=== PATIENT | male | born 1955 | race Caucasian/White ===

== ENCOUNTER 2018-11-30 09:16 | Emergency (ER) | payer MEDICARE ==
--- NOTE | 2018-11-30 09:56 | ERPHSYRPT ---
- History of Present Illness Time Seen by Provider: 11/30/18 09:40 Source: patient Exam Limitations: no limitations Patient Subjective Stated Complaint: states 2 days ago had an episode of low blood pressure. states did not pass out.. has had 2 other similar episiode over the past 4 months.,. has n ot gotten it evaluated.. came today because his doctor told him to come in.. no c/o at this time Triage Nursing Assessment: alert and oriented with no c/o at this time.. states 2 days ago had an episode of low blood pressure. did not pass out. neuro intact.. denies any pain of any kind. denies cough fever. Physician History: 63-year-old white male arrives with complaint that he has been passing out at home he states that he has been having episodes where he feels like he is drunk staggering around the last time this happened was 2 days ago he states he did not pass completely out he states he had similar episode of prior to this he states that he contacted his family doctor and was told to come to the emergency room. He is not sure complaining of any shortness of breath he has no chest pain he states he is not having problems at this time. patient states he was noted at the time to have a blood pressure of 90/45. Past medical history includes peripheral neuropathy, diabetes type 2, hypothyroidism, high blood pressure, arthritis, degenerative disc disease, enlarged prostate, GERD, glaucoma, carpal tunnel, chronic back pain Past surgical history includes spinal fusion . Social history positive tobacco denies alcohol or illicit drug use . Timing/Duration: day(s) (2 days ago and has been recurrent) Severity: moderate Associated Symptoms: syncope (near syncopal episode), other (hypotension), No nausea, No vomiting, No abdominal pain, No shortness of breath, No heartburn, No diaphoresis, No cough, No chills, No chest pain, No fever, No headaches, No loss of appetite, No malaise, No rash, No seizure, No weakness Allergies/Adverse Reactions: Tetracyclines Allergy (Verified 11/30/18 10:00) Home Medications: Amitriptyline HCl 75 mg PO DAILY 05/15/17 [History] Canagliflozin [Invokana] 300 mg PO DAILY 05/15/17 [History] Duloxetine HCl [Cymbalta] 60 mg PO DAILY 05/15/17 [History] Gabapentin [Neurontin] 300 mg PO TID 05/15/17 [History] Hydrocodone/APAP 10/325 mg [Barnum 10/325 MG Tablet] 1 tab PO Q8H PRN PRN 05/15/17 [History] Levothyroxine Sodium 100 Mcg [Synthroid 100 Mcg] 100 mcg PO DAILY 05/15/17 [History] Metformin HCl 1,000 mg PO BID 05/15/17 [History] Metoprolol Tartrate 50 mg [Lopressor 50 MG] 50 mg PO DAILY 05/15/17 [ History] - Review of Systems Constitutional: No Fever, No Chills Eyes: No Symptoms Ears, Nose, & Throat: No Symptoms Respiratory: No Cough, No Dyspnea Cardiac: Other (hypotension), No Chest Pain, No Edema, No Syncope Abdominal/Gastrointestinal: No Abdominal Pain, No Nausea, No Vomiting, No Diarrhea Genitourinary Symptoms: No Dysuria Musculoskeletal: No Back Pain, No Neck Pain Skin: No Rash Neurological: Dizziness, Gait Changes, Other (dizzy with staggering gait2 days ago), No Focal Weakness, No Headache, No Irritability, No Lethargy, No Paralysis , No Parasthesia, No Seizure, No Sensory Changes, No Speech Changes, No Tics, No Tremors Psychological: No Symptoms Endocrine: No Symptoms All Other Systems: Reviewed and Negative - Past Medical History Pertinent Past Medical History: Yes Neurological History: No Pertinent History, Peripheral Neuropathy Cardiac History: Hypertension Respiratory History: No Pertinent History Endocrine Medical History: Diabetes Type II, Hypothyroidism Musculoskeletal History: Arthritis, Degenerative Disk Disease - Past Surgical History Past Surgical History: Yes - Social History Smoking Status: Current every day smoker Exposure to second hand smoke: No Drug Use: none Patient Lives Alone: No - Nursing Vital Signs Nursing Vital Signs: Initial Vital Signs Temperature 97.0 F 11/30/18 09:21 Pulse Rate 79 11/30/18 09:21 Respiratory Rate 18 11/30/18 09:21 Blood Pressure 141/94 11/30/18 09:21 O2 Sat by Pulse Oximetry 95 11/30/18 09:21 Pain Scale Pain Intensity 4 - Physical Exam General Appearance: no apparent distress, alert Eye Exam: PERRL/EOMI, eyes nml inspection Ears, Nose, Throat Exam: normal ENT inspection, TMs normal, pharynx normal, moist mucous membranes Neck Exam: normal inspection, non-tender, supple, full range of motion Respiratory Exam: normal breath sounds, lungs clear, No respiratory distress Cardiovascular Exam: regular rate/rhythm, normal heart sounds, normal peripheral pulses, capillary refill <2 sec Gastrointestinal/Abdomen Exam: soft, normal bowel sounds, No tenderness, No mass Back Exam: normal inspection, normal range of motion, No CVA tenderness, No vertebral tenderness Extremity Exam: normal inspection, normal range of motion, pelvis stable Neurologic Exam: alert, oriented x 3, cooperative, track layer head II-XII nml as tested, normal mood/affect, nml cerebellar function, nml station & gait, sensation nml, No motor deficits Skin Exam: normal color, warm, dry, No rash SpO2 Interpretation: normal (95%) SpO2: 95 - Course Nursing assessment & vital signs reviewed: Yes EKG Interpreted by Me: RATE (78 bpm), Sinus Rhythm, Other (EKG: Sinus rhythm, 78 bpm< AXISSI/QIII pattern, no acute ST or T wave changes) - Radiology Exams Chest X-ray Interpretation: Discussed w/ radiologist (chest x-ray: Normal heart and lungs, bony thorax intact. No new/acute findings.,) - CT Exams Head CT Interpretation: Discussed w/radiologist (head CT: Impression: Normal head CT without contrast.) Ordered Tests: Active Orders 24 hr Category Date Time Status EKG-ER Only STAT Care 11/30/18 09:44 Active IV Insertion STAT Care 11/30/18 09:44 Active CHEST 1 VIEW (PORTABLE) Stat Exams 11/30/18 09:45 Completed HEAD WITHOUT CONTRAST [CT] Stat Exams 11/30/18 09:46 Completed AMYLASE Stat Lab 11/30/18 10:04 Completed CBC W DIFF Stat Lab 11/30/18 10:04 Completed CMP Stat Lab 11/30/18 10:04 Completed LIPASE Stat Lab 11/30/18 10:04 Completed TROPONIN Q3H Lab 11/30/18 10:04 Completed TROPONIN Q3H Lab 11/30/18 12:45 Ordered TROPONIN Q3H Lab 11/30/18 15:45 Ordered TROPONIN Q3H Lab 11/30/18 18:45 Ordered TROPONIN Q3H Lab 11/30/18 21:45 Ordered UA W/RFX UR CULTURE Stat Lab 11/30/18 10:10 Completed Lab/Rad Data: Laboratory Result Diagrams 11/30/18 10:04 11/30/18 10:04 Laboratory Results 11/30/18 11/30/18 11/30/18 Range/Units 10:10 10:04 10:04 WBC (4.0-10.5) K/mm3 RBC (4.1-5.6) M/mm3 Hgb (12.5-18.0) gm/dl Hct (42-50) % MCV (78-100) fl MCH (26-32) pg MCHC (32-36) g/dl RDW (11.5-14.0) % Plt Count (150-450) K/mm3 MPV (6-9.5) fl Gran % (36.0-66.0) % Eos # (Auto) (0-0.5) Absolute Lymphs (auto) (1.0-4.6) Absolute Monos (auto) (0.0-1.3) Lymphocytes % (24.0-44.0) % Monocytes % (0.0-12.0) % Eosinophils % (0.00-5.0) % Basophils % (0.0-0.4) % Absolute Granulocytes (1.4-6.9) Basophils # (0-0.4) Sodium 137 (137-145) mmol/L Potassium 4.3 (3.5-5.1) mmol/L Chloride 105 (98-107) mmol/L Carbon Dioxide 23 (22-30) mmol/L Anion Gap 13.3 (5-15) MEQ/L BUN 10 (9-20) mg/dL Creatinine 0.69 (0.66-1.25) mg/dL Estimated GFR > 60.0 ML/MIN Glucose 239 H (74-106) mg/dL Calcium 8.4 (8.4-10.2) mg/dL Total Bilirubin 0.90 (0.2-1.3) mg/dL AST 43 (17-59) U/L ALT 44 (0-50) U/L Alkaline Phosphatase 80 (38-126) U/L Troponin I < 0.012 (0.000-0.034) ng/mL Serum Total Protein 7.0 (6.3-8.2) g/dL Albumin 3.6 (3.5-5.0) g/dL Amylase 48 (30-110) U/L Lipase 75 (23-300) U/L Urine Color YELLOW (YELLOW) Urine Appearance CLEAR (CLEAR) Urine pH 5.0 (5-6) Ur Specific Clinton 1.024 (1.005-1.025) Urine Protein NEGATIVE (Negative) Urine Ketones NEGATIVE (NEGATIVE) Urine Blood NEGATIVE (0-5) Gerardo/ul Urine Nitrite NEGATIVE (NEGATIVE) Urine Bilirubin NEGATIVE (NEGATIVE) Urine Urobilinogen 4 (0-1) mg/dL Ur Leukocyte Esterase NEGATIVE (NEGATIVE) Urine WBC (Auto) NONE (0-5) /HPF Urine RBC (Auto) NONE (0-2) /HPF U Epithel Cells (Auto) NONE (FEW) /HPF Urine Mucus (Auto) SLIGHT (NEGATIVE) /HPF Urine Culture Reflexed NO (NO) Urine Glucose >=500 (NEGATIVE) mg/dL 11/30/18 Range/Units 10:04 WBC 5.9 (4.0-10.5) K/mm3 RBC 4.14 (4.1-5.6) M/mm3 Hgb 13.4 (12.5-18.0) gm/dl Hct 40.9 L (42-50) % MCV 98.8 (78-100) fl MCH 32.4 H (26-32) pg MCHC 32.8 (32-36) g/dl RDW 14.1 H (11.5-14.0) % Plt Count 140 L (150-450) K/mm3 MPV 10.5 H (6-9.5) fl Gran % 61.4 (36.0-66.0) % Eos # (Auto) 0.07 (0-0.5) Absolute Lymphs (auto) 1.71 (1.0-4.6) Absolute Monos (auto) 0.47 (0.0-1.3) Lymphocytes % 29.2 (24.0-44.0) % Monocytes % 8.0 (0.0-12.0) % Eosinophils % 1.2 (0.00-5.0) % Basophils % 0.2 (0.0-0.4) % Absolute Granulocytes 3.60 (1.4-6.9) Basophils # 0.01 (0-0.4) Sodium (137-145) mmol/L Potassium (3.5-5.1) mmol/L Chloride (98-107) mmol/L Carbon Dioxide (22-30) mmol/L Anion Gap (5-15) MEQ/L BUN (9-20) mg/dL Creatinine (0.66-1.25) mg/dL Estimated GFR ML/MIN Glucose (74-106) mg/dL Calcium (8.4-10.2) mg/dL Total Bilirubin (0.2-1.3) mg/dL AST (17-59) U/L ALT (0-50) U/L Alkaline Phosphatase (38-126) U/L Troponin I (0.000-0.034) ng/mL Serum Total Protein (6.3-8.2) g/dL Albumin (3.5-5.0) g/dL Amylase (30-110) U/L Lipase (23-300) U/L Urine Color (YELLOW) Urine Appearance (CLEAR) Urine pH (5-6) Ur Specific Clinton (1.005-1.025) Urine Protein (Negative) Urine Ketones (NEGATIVE) Urine Blood (0-5) Gerardo/ul Urine Nitrite (NEGATIVE) Urine Bilirubin (NEGATIVE) Urine Urobilinogen (0-1) mg/dL Ur Leukocyte Esterase (NEGATIVE) Urine WBC (Auto) (0-5) /HPF Urine RBC (Auto) (0-2) /HPF U Epithel Cells (Auto) (FEW) /HPF Urine Mucus (Auto) (NEGATIVE) /HPF Urine Culture Reflexed (NO) Urine Glucose (NEGATIVE) mg/dL - Progress Progress: improved Progress Note: 11/30/18 11:53 This is a 63-year-old white male with history of diabetes, diabetic neuropathy, sleep apnea, high blood pressure Patient apparently has been passing out at home apparently he states he states that he had a staggering gait 2 days ago he states his blood pressure was low at that time. Patient apparently called his family physician's office and was told to present to the emergency room. 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 Patient's head CT no acute disease process noted, EKG sinus rhythm 78 bpm axis S1/every 3 pattern essentially normal EKG chest x-ray no acute disease processes noted patient's labs white cell 5.9 hemoglobin 13.4 hematocrit 40.9 platelets are 140 patient's urine specific gravity 1.025 pH 5.0 there is greater than 500 glucose patient's troponin is normal patient's chemistries especially normal with the exception of a glucose of 239 . Patient's vitals have been stable patient is stable on the monitor. I've discussed the patient's case with Dr. Chaves patient is return home call Dr. Chaves and schedule an appointment. Impression transient gait disturbance Passing out at home Hypotension at home - Departure Time of Disposition: 11:56 Departure Disposition: Home Clinical Impression: transient gait disturbance, hypotension at home, Dizziness Syncope Qualifiers: Syncope type: unspecified Qualified Code(s): R55 - Syncope and collapse Condition: Fair Critical Care Time: No Referrals: MATHEUS YOU [ACTIVE STAFF] - Additional Instructions: Return home. Plenty of fluids. No heights no hazardous activity no driving take showers instead of baths. Follow-up with Dr. Chaves's office call for an appointment. Return for acute distress or for severe symptoms.
[2018-11-30 10:08] LABS: BASOPHIL % 0.2 % (0.0-0.4); Basophil (Absolute #) 0.01 (0-0.4); Eosinophil % 1.2 % (0.00-5.0); Eosinophil (Absolute #) 0.07 (0-0.5); Granulocytes % 61.4 % (36.0-66.0); Hematocrit 40.9 % (42-50); Hemoglobin 13.4 gm/dl (12.5-18.0); Lymphocyte (Absolute #) 1.71 (1.0-4.6); Lymphocytes % 29.2 % (24.0-44.0); Mean Cell Volume 98.8 fl (78-100); Mean Corpuscular Hemoglobin 32.4 pg (26-32); Mean Corpuscular Hgb Concent. 32.8 g/dl (32-36); Mean Platelet Volume 10.5 fl (6-9.5); Monocyte (Absolute #) 0.47 (0.0-1.3); Platelet Count 140 K/mm3 (150-450); Red Blood Count 4.14 M/mm3 (4.1-5.6); Red Cell Distribution Width 14.1 % (11.5-14.0); White Blood Count 5.9 K/mm3 (4.0-10.5)
--- NOTE | 2018-11-30 10:09 | XRAY ---
Indication: Syncope. Comparison: February 25, 2017. Portable chest again demonstrates normal heart and lungs. Bony thorax intact. No new/acute findings.
[2018-11-30 10:14] VITALS: BP 123/80
[2018-11-30 10:18] LABS: ALBUMIN 3.6 g/dL (3.5-5.0); ALKALINE PHOSPHATASE 80 U/L (38-126); AMYLASE 48 U/L (30-110); ANION GAP 13.3 MEQ/L (5-15); BLOOD UREA NITROGEN 10 mg/dL (9-20); CHLORIDE 105 mmol/L (98-107); Calcium 8.4 mg/dL (8.4-10.2); Carbon Dioxide 23 mmol/L (22-30); Creatinine 1 0.69 mg/dL (0.66-1.25); Glucose 239 mg/dL (74-106); LIPASE 75 U/L (23-300); Potassium 4.3 mmol/L (3.5-5.1); SGOT/AST 43 U/L (17-59); SGPT/ALT 44 U/L (0-50); SODIUM 137 mmol/L (137-145)
[2018-11-30 10:24] LABS: Appearance CLEAR (CLEAR); Bilirubin NEGATIVE (NEGATIVE); Blood NEGATIVE Ery/ul (0-5); Glucose >=500 mg/dL (NEGATIVE); Ketones NEGATIVE (NEGATIVE); Leukocyte Esterase NEGATIVE (NEGATIVE); Mucus SLIGHT /HPF (NEGATIVE); Nitrite NEGATIVE (NEGATIVE); Protein,Urine Dip NEGATIVE (Negative); Specific Gravity 1.024 (1.005-1.025); Urobilinogen 4 mg/dL (0-1)
--- NOTE | 2018-11-30 10:55 | XRAY ---
Indication: Syncopal episode 3 days ago. Multiple contiguous axial images obtained through the head without contrast. Comparison: None Normal appearing brain parenchyma, ventricles, and bony calvarium. Visualized paranasal sinuses and mastoid air cells are clear. Impression: Normal CT head without contrast exam. CT DI 69.11
[2018-11-30 12:12] VITALS: PULSE 76; O2SAT 98
== END 2018-11-30 12:09 | disposition home or self-care (01) ==
LOC: ED 09:16
DX: R26.89 Other abnormalities of gait and mobility (principal); I95.9 Hypotension, unspecified; R42 Dizziness and giddiness; E11.9 Type 2 diabetes mellitus without complications; E03.9 Hypothyroidism, unspecified; I10 Essential (primary) hypertension; R55 Syncope and collapse; Z79.899 Other long term (current) drug therapy
CPT/HCPCS: 36000; 36415; 70450; 71045; 80053; 81001; 82150; 83690; 84484; 85025; 93005; 99284

== ENCOUNTER 2019-11-17 07:59 | Emergency (ER) | payer MEDICARE ==
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
[2019-11-17 08:42] LABS: Absolute Neutrophil Ct (ANC) 3.41 (1.4-6.9); BASOPHIL % 0.2 % (0.0-0.4); Basophil (Absolute #) 0.01 (0-0.4); Eosinophil % 1.5 % (0.00-5.0); Eosinophil (Absolute #) 0.08 (0-0.5); Hematocrit 42.4 % (42-50); Hemoglobin 13.8 gm/dl (12.5-18.0); Lymphocyte (Absolute #) 1.13 (1.0-4.6); Lymphocytes % 21.3 % (24.0-44.0); Mean Cell Volume 95.5 fl (78-100); Mean Corpuscular Hemoglobin 31.1 pg (26-32); Mean Corpuscular Hgb Concent. 32.5 g/dl (32-36); Mean Platelet Volume 10.2 fl (7.5-11.0); Monocyte (Absolute #) 0.67 (0.0-1.3); Monocytes % 12.6 % (0.0-12.0); Neutrophil % 64.4 % (36.0-66.0); Platelet Count 128 K/mm3 (150-450); Red Blood Count 4.44 M/mm3 (4.1-5.6); Red Cell Distribution Width 14.1 % (11.5-14.0); White Blood Count 5.3 K/mm3 (4.0-10.5)
[2019-11-17 08:52] LABS: ALBUMIN 4.1 g/dL (3.5-5.0); ALKALINE PHOSPHATASE 84 U/L (38-126); ANION GAP 16.3 MEQ/L (5-15); BLOOD UREA NITROGEN 7 mg/dL (9-20); CHLORIDE 104 mmol/L (98-107); Calcium 9.6 mg/dL (8.4-10.2); Carbon Dioxide 22 mmol/L (22-30); Creatinine 1 0.68 mg/dL (0.66-1.25); Glucose 130 mg/dL (74-106); LIPASE 44 U/L (23-300); Potassium 4.3 mmol/L (3.5-5.1); SGOT/AST 31 U/L (17-59); SGPT/ALT 22 U/L (0-50); SODIUM 138 mmol/L (137-145); Total Protein 7.8 g/dL (6.3-8.2)
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
[2019-11-17 10:07] VITALS: BP 168/101; PULSE 78
[2019-11-17 10:09] VITALS: O2SAT 96
== END 2019-11-17 10:14 | disposition home or self-care (01) ==
LOC: ED 07:59
DX: N28.1 Cyst of kidney, acquired (principal); S16.1XXA Strain of muscle, fascia and tendon at neck level, initial encounter; S39.012A Strain of muscle, fascia and tendon of lower back, initial encounter; V89.2XXA Person injured in unspecified motor-vehicle accident, traffic, initial encounter; K74.69 Other cirrhosis of liver; I10 Essential (primary) hypertension; G62.9 Polyneuropathy, unspecified; M25.572 Pain in left ankle and joints of left foot; E11.9 Type 2 diabetes mellitus without complications; Z79.4 Long term (current) use of insulin; E03.9 Hypothyroidism, unspecified; M19.90 Unspecified osteoarthritis, unspecified site; Z72.0 Tobacco use; Z79.899 Other long term (current) drug therapy
CPT/HCPCS: 36000; 36415; 70450; 71260; 72125; 73610; 74177; 80053; 83690; 85025; 99285

== ENCOUNTER 2020-05-29 09:49 | Emergency (ER) | payer MEDICARE ==
--- NOTE | 2020-05-29 09:57 | ERPHSYRPT ---
- History of Present Illness Time Seen by Provider: 05/29/20 09:57 Source: patient Exam Limitations: no limitations Physician History: This is a 64-year-old white male who is diabetic and has hypothyroidism and is a patient of Dr. Becerra and presents with 2 to 3-day history of intermittent headaches and humming sound in his head. He took his blood pressure on his home device and his systolic blood pressure was over 170 and his diastolic blood pressure was over 100. Patient took his metoprolol 50 mg orally this morning and he takes it usually twice a day. Patient is also on levothyroxine. Patient denies shortness of breath and denies chest pain. Patient denies abdominal pain Timing/Duration: day(s) (2-3) Severity: mild Character of Deficits: none Deficits: no difficulties Baseline/Normal Cognition: alert oriented x 3 Current Cognition: alert oriented x 3 Baseline Gait: walks w/o assistance Associated Symptoms: ringing in ears, headache, No vision changes, No chest pain Allergies/Adverse Reactions: Tetracyclines Allergy (Verified 11/17/19 08:20) Home Medications: Amitriptyline HCl 12.5 mg PO DAILY 05/15/17 [History] Duloxetine HCl [Cymbalta] 60 mg PO DAILY 05/15/17 [History] Gabapentin [Neurontin] 800 mg PO TID 05/15/17 [History] Hydrocodone/APAP 10/325 mg [[place] 10/325 MG Tablet] 1 tab PO Q8H PRN PRN 05/15/17 [History] Levothyroxine Sodium 100 Mcg [Synthroid 100 Mcg] 300 mcg PO DAILY 05/15/17 [History] Metformin HCl 1,000 mg PO BID 05/15/17 [History] Metoprolol Tartrate 50 mg [Lopressor 50 MG] 50 mg PO BID 05/15/17 [History] Empagliflozin [Jardiance] 25 mg PO DAILY 11/17/19 [History] Tamsulosin HCl 0.4 mg [Flomax 0.4 MG] 0.4 mg PO DAILY 11/17/19 [History] Tizanidine HCl 4 mg PO Q8H PRN 11/17/19 [History] Travel Risk - International Travel Have you traveled outside of the country in past 3 weeks: No - Coronavirus Screening Are you exhibiting any of the following symptoms?: No Close contact with a COVID-19 positive Pt in past 14-21 Days: No - Review of Systems Constitutional: No Symptoms Eyes: No Symptoms Ears, Nose, & Throat: No Symptoms Respiratory: No Symptoms Cardiac: No Symptoms Abdominal/Gastrointestinal: No Symptoms Genitourinary Symptoms: No Symptoms Musculoskeletal: No Symptoms Skin: No Symptoms Neurological: Headache, Other (Humming in his head) Psychological: No Symptoms Endocrine: No Symptoms Hematologic/Lymphatic: No Symptoms Immunological/Allergic: No Symptoms All Other Systems: Reviewed and Negative - Past Medical History Pertinent Past Medical History: Yes Neurological History: Peripheral Neuropathy, Other Cardiac History: Hypertension Respiratory History: No Pertinent History Endocrine Medical History: Diabetes Type II, Other Musculoskeletal History: Osteoarthritis GI Medical History: No Pertinent History History: No Pertinent History Psycho-Social History: No Pertinent History Male Reproductive Disorders: No Pertinent History Other Medical History: Recent MUSTAFA, some tingling into B medial brachium, fatty li denise. - Past Surgical History Past Surgical History: Yes Neuro Surgical History: No Pertinent History Cardiac: No Pertinent History Respiratory: No Pertinent History Gastrointestinal: No Pertinent History Genitourinary: No Pertinent History Musculoskeletal: Other Male Surgical History: No Pertinent History Other Surgical History: back surgery- spinal fusion, 2 rods - Social History Smoking Status: Current every day smoker How long have you smoked: 40 years Exposure to second hand smoke: Yes Drug Use: none Patient Lives Alone: No - Nursing Vital Signs Nursing Vital Signs: Initial Vital Signs Temperature 98.2 F 05/29/20 10:01 Pulse Rate 72 05/29/20 10:01 Respiratory Rate 20 05/29/20 10:01 Blood Pressure 174/100 05/29/20 10:01 O2 Sat by Pulse Oximetry 98 05/29/20 10:01 Pain Scale Pain Intensity 0 - [place] Coma Scale Best Eye Response ([place]): (4) open spontaneously Best Verbal Response ([place]): (5) oriented Best Motor Response (Samir): (6) obeys commands [place] Total: 15 - Physical Exam General Appearance: no apparent distress, alert, anxiety Eye Exam: bilateral eye: normal inspection, PERRL, EOMI Ears, Nose, Throat Exam: normal ENT inspection, TMs normal, moist mucous membranes Neck Exam: normal inspection, non-tender, supple, full range of motion Respiratory: normal breath sounds, lungs clear, airway intact, No chest tenderness, No respiratory distress Cardiovascular: regular rate/rhythm, normal heart sounds, normal peripheral pulses Gastrointestinal: soft, normal bowel sounds, No tenderness Rectal Exam: not done Back Exam: normal inspection, normal range of motion, No CVA tenderness, No vertebral tenderness Extremity Exam: normal inspection, normal range of motion, pelvis stable Mental Status: alert, oriented x 3, cooperative mercerizer Exam: normal hearing, normal speech, PERRL, tongue midline Coordination/Gait: normal finger to nose, normal gait, normal cerebellar function Motor/Sensory: no motor deficit, no sensory deficit, no pronator drift Skin Exam: normal color, warm, dry SpO2 Interpretation: normal O2 Delivery: Room Air - Course Nursing assessment & vital signs reviewed: Yes EKG Interpreted by Me: RATE ([id number]), Sinus Rhythm, NORMAL AXIS, NORMAL INTERVALS, NORMAL QRS, Other (Comparison EKG November 17, 2019 there is no changes when compared to that EKG. On today's EKG there are no acute ischemic changes.) Ordered Tests: Active Orders 24 hr Category Date Time Status EKG-ER Only STAT Care 05/29/20 10:31 Active IV Insertion STAT Care 05/29/20 10:31 Active HEAD WITHOUT CONTRAST [CT] Stat Exams 05/29/20 10:31 Completed CBC W DIFF Stat Lab 05/29/20 10:30 Completed CMP Stat Lab 05/29/20 10:30 Completed MAGNESIUM Stat Lab 05/29/20 10:30 Completed TROPONIN Q3H Lab 05/29/20 10:30 Completed TROPONIN Q3H Lab 05/29/20 13:45 Ordered TROPONIN Q3H Lab 05/29/20 16:45 Ordered TROPONIN Q3H Lab 05/29/20 19:45 Ordered TROPONIN Q3H Lab 05/29/20 22:45 Ordered Lab/Rad Data: Laboratory Result Diagrams 05/29/20 10:30 05/29/20 10:30 Laboratory Results 05/29/20 05/29/20 05/29/20 Range/Units 10:30 10:30 10:30 WBC 6.7 (4.0-10.5) K/mm3 RBC 4.43 (4.1-5.6) M/mm3 Hgb 15.4 (12.5-18.0) gm/dl Hct 45.1 (42-50) % MCV 101.8 H (78-100) fl MCH 34.8 H (26-32) pg MCHC 34.1 (32-36) g/dl RDW 15.9 H (11.5-14.0) % Plt Count 148 L (150-450) K/mm3 MPV 10.6 (7.5-11.0) fl Gran % 62.7 (36.0-66.0) % Eos # (Auto) 0.07 (0-0.5) Absolute Lymphs (auto) 1.90 (1.0-4.6) Absolute Monos (auto) 0.54 (0.0-1.3) Lymphocytes % 28.2 (24.0-44.0) % Monocytes % 8.0 (0.0-12.0) % Eosinophils % 1.0 (0.00-5.0) % Basophils % 0.1 (0.0-0.4) % Absolute Granulocytes 4.21 (1.4-6.9) Basophils # 0.01 (0-0.4) Sodium 139 (137-145) mmol/L Potassium 4.2 (3.5-5.1) mmol/L Chloride 104 (98-107) mmol/L Carbon Dioxide 24 (22-30) mmol/L Anion Gap 15.4 H (5-15) MEQ/L BUN 11 (9-20) mg/dL Creatinine 0.76 (0.66-1.25) mg/dL Estimated GFR > 60.0 ML/MIN Glucose 100 (74-106) mg/dL Calcium 9.6 (8.4-10.2) mg/dL Magnesium 1.6 (1.6-2.3) mg/dL Total Bilirubin 1.70 H (0.2-1.3) mg/dL AST 29 (17-59) U/L ALT 21 (0-50) U/L Alkaline Phosphatase 80 (38-126) U/L Troponin I < 0.012 (0.000-0.034) ng/mL Serum Total Protein 8.3 H (6.3-8.2) g/dL Albumin 4.5 (3.5-5.0) g/dL - Progress Progress: improved, re-examined Progress Note: 05/29/20 11:41 CAT scan of the head reveals no acute intracranial abnormality Counseled pt/family regarding: lab results, diagnosis, need for follow-up, rad results - Departure Departure Disposition: Home Clinical Impression: Hypertension, Headache, Dizziness Condition: Stable Critical Care Time: No Referrals: CAROLYN BECERRA MD [Primary Care Provider] - Additional Instructions: Take your medication as prescribed. Keep a daily log of your blood pressure. Take once in the morning, midday and evening. Follow-up with your primary care physician for further management of your symptoms.
[2020-05-29 10:47] LABS: Absolute Neutrophil Ct (ANC) 4.21 (1.4-6.9); BASOPHIL % 0.1 % (0.0-0.4); Basophil (Absolute #) 0.01 (0-0.4); Eosinophil (Absolute #) 0.07 (0-0.5); Hematocrit 45.1 % (42-50); Hemoglobin 15.4 gm/dl (12.5-18.0); Lymphocytes % 28.2 % (24.0-44.0); Mean Cell Volume 101.8 fl (78-100); Mean Corpuscular Hemoglobin 34.8 pg (26-32); Mean Corpuscular Hgb Concent. 34.1 g/dl (32-36); Mean Platelet Volume 10.6 fl (7.5-11.0); Monocyte (Absolute #) 0.54 (0.0-1.3); Neutrophil % 62.7 % (36.0-66.0); Platelet Count 148 K/mm3 (150-450); Red Blood Count 4.43 M/mm3 (4.1-5.6); Red Cell Distribution Width 15.9 % (11.5-14.0); White Blood Count 6.7 K/mm3 (4.0-10.5)
[2020-05-29 11:08] LABS: ALBUMIN 4.5 g/dL (3.5-5.0); ALKALINE PHOSPHATASE 80 U/L (38-126); ANION GAP 15.4 MEQ/L (5-15); BLOOD UREA NITROGEN 11 mg/dL (9-20); CHLORIDE 104 mmol/L (98-107); Calcium 9.6 mg/dL (8.4-10.2); Carbon Dioxide 24 mmol/L (22-30); Creatinine 1 0.76 mg/dL (0.66-1.25); Glucose 100 mg/dL (74-106); MAGNESIUM 1.6 mg/dL (1.6-2.3); Potassium 4.2 mmol/L (3.5-5.1); SGOT/AST 29 U/L (17-59); SGPT/ALT 21 U/L (0-50); SODIUM 139 mmol/L (137-145); Total Protein 8.3 g/dL (6.3-8.2)
--- NOTE | 2020-05-29 11:33 | XRAY ---
Indication: Headache and dizziness. Hypertension. Multiple contiguous axial images obtained through the head without contrast. Comparison: November 17, 2019. Again normal appearing brain parenchyma, ventricles, and bony calvarium. Visualized paranasal sinuses and mastoid air cells are clear. Impression: Continued normal CT head without contrast exam.
[2020-05-29 12:16] VITALS: BP 153/87; PULSE 69; O2SAT 98
== END 2020-05-29 12:21 | disposition home or self-care (01) ==
LOC: ED 09:49
DX: I10 Essential (primary) hypertension (principal); R51 Headache; R42 Dizziness and giddiness
CPT/HCPCS: 36000; 36415; 70450; 80053; 83735; 84484; 85025; 93005; 99284

== ENCOUNTER 2020-09-15 11:37 | Emergency (ER) | payer MEDICARE ==
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
[2020-09-15 12:22] LABS: Absolute Neutrophil Ct (ANC) 5.08 (1.4-6.9); BASOPHIL % 0.1 % (0.0-0.4); Basophil (Absolute #) 0.01 (0-0.4); Eosinophil % 1.2 % (0.00-5.0); Hematocrit 46.8 % (42-50); Hemoglobin 15.8 gm/dl (12.5-18.0); Lymphocyte (Absolute #) 2.47 (1.0-4.6); Lymphocytes % 29.9 % (24.0-44.0); Mean Corpuscular Hemoglobin 33.8 pg (26-32); Mean Corpuscular Hgb Concent. 33.8 g/dl (32-36); Mean Platelet Volume 10.7 fl (7.5-11.0); Monocytes % 7.3 % (0.0-12.0); Neutrophil % 61.5 % (36.0-66.0); Platelet Count 142 K/mm3 (150-450); Red Blood Count 4.68 M/mm3 (4.1-5.6); Red Cell Distribution Width 13.7 % (11.5-14.0); White Blood Count 8.3 K/mm3 (4.0-10.5)
[2020-09-15 12:25] LABS: Appearance CLEAR (CLEAR); Bilirubin NEGATIVE (NEGATIVE); Blood NEGATIVE Ery/ul (0-5); Glucose >=500 mg/dL (NEGATIVE); Ketones NEGATIVE (NEGATIVE); Leukocyte Esterase NEGATIVE (NEGATIVE); Nitrite NEGATIVE (NEGATIVE); Protein,Urine Dip NEGATIVE (Negative); RBC 0-2 /HPF (0-2); Specific Gravity 1.018 (1.005-1.025); Urobilinogen 4 mg/dL (0-1)
[2020-09-15 12:30] LABS: Bacteria NONE SEEN /HPF (NEGATIVE)
--- NOTE | 2020-09-15 12:30 | XRAY ---
Indication: Uncontrolled hypertension. Comparison: November 22, 2018. Portable apical lordotic chest again demonstrates normal heart and lungs. Bony thorax intact again with mild degenerative changes. No new/acute findings.
[2020-09-15 13:06] LABS: ALBUMIN 4.2 g/dL (3.5-5.0); ALKALINE PHOSPHATASE 76 U/L (38-126); ANION GAP 13.9 MEQ/L (5-15); BLOOD UREA NITROGEN 17 mg/dL (9-20); CHLORIDE 105 mmol/L (98-107); Calcium 9.8 mg/dL (8.4-10.2); Carbon Dioxide 22 mmol/L (22-30); Creatinine 1 0.76 mg/dL (0.66-1.25); EST GLOMERULAR FILTRATION RATE > 60.0 ML/MIN; Glucose 71 mg/dL (74-106); Potassium 4.4 mmol/L (3.5-5.1); SGOT/AST 40 U/L (17-59); SGPT/ALT 26 U/L (0-50); SODIUM 136 mmol/L (137-145); Total Protein 8.1 g/dL (6.3-8.2)
[2020-09-15 13:28] LABS: TROPONIN < 0.012 ng/mL (0.000-0.034)
[2020-09-15 14:06] VITALS: BP 158/99; PULSE 66
[2020-09-15 15:19] VITALS: O2SAT 94
== END 2020-09-15 14:11 | disposition home or self-care (01) ==
LOC: ED 11:37
DX: I10 Essential (primary) hypertension (principal); E78.5 Hyperlipidemia, unspecified; E11.9 Type 2 diabetes mellitus without complications; E03.9 Hypothyroidism, unspecified; Z79.899 Other long term (current) drug therapy; F17.210 Nicotine dependence, cigarettes, uncomplicated
CPT/HCPCS: 36000; 36415; 71045; 80053; 81001; 83880; 84484; 85025; 93005; 99284

== ENCOUNTER 2021-05-31 09:52 | Observation (INO) | payer MEDICARE ==
--- NOTE | 2021-05-31 10:16 | XRAY ---
Indication: Right sided numbness. Multiple contiguous axial images obtained through the head without contrast. Comparison: May 29, 2020. Normal appearing brain parenchyma, ventricles, and bony calvarium for patient's age. Visualized paranasal sinuses and mastoid air cells are clear. Impression: Continued normal CT head without contrast exam.
--- NOTE | 2021-05-31 10:29 | ERPHSYRPT ---
- History of Present Illness Time Seen by Provider: 05/31/21 10:17 Patient Subjective Stated Complaint: Pt states that at 0630 he began noticing that his right was feeling numb and felt like his right side of his face was d rooping Triage Nursing Assessment: Pt brought to the ER by his , hypertensive, denies pain, no facial droop seen, skin n/w/d, pulses normal Physician History: 65 years old male with history of hypertension, hyperlipidemia, diabetes mellitus, hypothyroidism, questionable history of paroxysmal atrial fibrillation not on anticoagulation presented in the ER with chief complaint of right-sided numbness noticed when he woke up around 630 this morning. Last well-known was 2 AM today. Patient also report having feeling of dullness or heaviness in the right face and every right lower extremity with mild difficulty ambulation as right foot has not coordinated with the left one very well. Denies any difficulty speech, visual symptoms. Denies any chest pain palpitations or shortness of breath. Severity: mild Character of Deficits: Right Facial Baseline/Normal Cognition: alert oriented x 3 Current Cognition: alert oriented x 3 Baseline Gait: walks w/o assistance Associated Symptoms: numbness/tingling in legs/feet, trouble walking Allergies/Adverse Reactions: Tetracyclines Allergy (Verified 05/31/21 10:05) Home Medications: Amitriptyline HCl 12.5 mg PO DAILY 05/15/17 [History] Duloxetine HCl [Cymbalta] 60 mg PO DAILY 05/15/17 [History] Gabapentin [Neurontin] 800 mg PO TID 05/15/17 [History] Hydrocodone/APAP 10/325 mg [[place] 10/325 MG Tablet] 1 tab PO Q8H PRN PRN 05/15/17 [History] Levothyroxine Sodium 100 Mcg [Synthroid 100 Mcg] 150 mcg PO DAILY 05/15/17 [History] Metformin HCl 1,000 mg PO BID 05/15/17 [History] Metoprolol Tartrate 50 mg [Lopressor 50 MG] 50 mg PO BID 05/15/17 [History] Empagliflozin [Jardiance] 25 mg PO DAILY 11/17/19 [History] Tamsulosin HCl 0.4 mg [Flomax 0.4 MG] 0.4 mg PO DAILY 11/17/19 [History] Tizanidine HCl 4 mg PO Q8H PRN 11/17/19 [History] Lisinopril 5 mg [Zestril 5 MG] 5 mg PO DAILY 05/31/21 [History] Hx Tetanus, Diphtheria Vaccination/Date Given: No Hx Influenza Vaccination/Date Given: Yes Hx Pneumococcal Vaccination/Date Given: No Travel Risk - International Travel Have you traveled outside of the country in past 3 weeks: No - Coronavirus Screening Are you exhibiting any of the following symptoms?: No - Vaccine Status Have you recieved a Covid-19 vaccination: Yes 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: [employer] - Vaccination Dates Date of 2cond Vaccination (if applicable): 01/2021 - Review of Systems Constitutional: No Symptoms Eyes: No Symptoms Ears, Nose, & Throat: No Symptoms Respiratory: No Symptoms Cardiac: No Symptoms Abdominal/Gastrointestinal: No Symptoms Genitourinary Symptoms: No Symptoms Musculoskeletal: No Symptoms Skin: No Symptoms Neurological: Sensory Changes Psychological: No Symptoms Endocrine: No Symptoms Hematologic/Lymphatic: No Symptoms Immunological/Allergic: No Symptoms - Past Medical History Pertinent Past Medical History: Yes Neurological History: Peripheral Neuropathy, Other Cardiac History: Hypertension Respiratory History: No Pertinent History Endocrine Medical History: Diabetes Type II, Other Musculoskeletal History: Osteoarthritis GI Medical History: No Pertinent History History: No Pertinent History Psycho-Social History: No Pertinent History Male Reproductive Disorders: No Pertinent History Other Medical History: Recent MUSTAFA, some tingling into B medial brachium, fatty liver. - Past Surgical History Past Surgical History: Yes Neuro Surgical History: No Pertinent History Cardiac: No Pertinent History Respiratory: No Pertinent History Gastrointestinal: No Pertinent History Genitourinary: No Pertinent History Musculoskeletal: Other Male Surgical History: No Pertinent History Other Surgical History: back surgery- spinal fusion, 2 rods - Social History Smoking Status: Current every day smoker How long have you smoked: 40 years Exposure to second hand smoke: Yes Drug Use: none Patient Lives Alone: No - Nursing Vital Signs Nursing Vital Signs: Initial Vital Signs Temperature 97.3 F 05/31/21 09:58 Pulse Rate 84 05/31/21 09:58 Blood Pressure 162/104 05/31/21 09:58 O2 Sat by Pulse Oximetry 97 05/31/21 09:58 Pain Scale Pain Intensity 0 - Samir Coma Scale Best Eye Response (Nenzel): (4) open spontaneously Best Verbal Response (Samir): (5) oriented Best Motor Response (Samir): (6) obeys commands Nenzel Total: 15 - Physical Exam General Appearance: no apparent distress Eye Exam: bilateral eye: normal inspection, PERRL, EOMI Ears, Nose, Throat Exam: normal ENT inspection, TMs normal, pharynx normal, moist mucous membranes Neck Exam: normal inspection, non-tender, supple, full range of motion, No meningismus Respiratory: normal breath sounds, lungs clear Cardiovascular: regular rate/rhythm, normal heart sounds Gastrointestinal: soft, normal bowel sounds, No tenderness Back Exam: normal inspection, normal range of motion, No CVA tenderness Extremity Exam: normal inspection, normal range of motion, pelvis stable, No pedal edema Mental Status: alert, oriented x 3, 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: normal speech, PERRL, No normal hearing (Chronic hard of hearing), No facial asymmetry, No facial droop Coordination/Gait: normal finger to nose, normal cerebellar function Motor/Sensory: no motor deficit, no pronator drift, negative Babinski's sign, sensory deficit (Decreased sensations of fine touch right face right upper and lower extremity), No no sensory deficit DTR: bicep (R): 2+, bicep (L): 2+, knee (R): 2+, knee (L): 2+ Skin Exam: normal color SpO2 Interpretation: normal SpO2: 97 O2 Delivery: Room Air Ordered Tests: Active Orders 24 hr Category Date Time 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 05/31/21 10:28 Active EKG-ER Only STAT Care 05/31/21 10:27 Active IV Insertion STAT Care 05/31/21 10:27 Active NPO (ED) STAT Care 05/31/21 10:27 Active POCT Glucose Check STAT Care 05/31/21 10:27 Active CHEST 1 VIEW (PORTABLE) Stat Exams 05/31/21 10:28 Completed HEAD WITHOUT CONTRAST [CT] Stat Exams 05/31/21 09:55 Completed CBC W DIFF Stat Lab 05/31/21 10:30 Completed CMP Stat Lab 05/31/21 10:30 Completed NT PRO BNP Stat Lab 05/31/21 10:30 Completed POCT GLUCOSE Stat Lab 05/31/21 10:07 Completed PROTIME WITH INR Stat Lab 05/31/21 10:30 Completed PTT Stat Lab 05/31/21 10:30 Completed TROPONIN Q3H Lab 05/31/21 10:30 Completed TROPONIN Q3H Lab 05/31/21 13:30 Ordered TROPONIN Q3H Lab 05/31/21 16:30 Ordered TROPONIN Q3H Lab 05/31/21 19:30 Ordered TROPONIN Q3H Lab 05/31/21 22:30 Ordered UA W/RFX UR CULTURE Stat Lab 05/31/21 10:55 Ordered Transfer Order Routine Transfer 05/31/21 Ordered Medication Summary Generic Name Dose Route Start Last Admin Trade Name Gabbie PRN Reason Stop Dose Admin Aspirin 324 mg 06/01/21 10:00 Ecotrin 81 Mg PO 07/01/21 09:59 DAILY SARA Lab/Rad Data: Laboratory Result Diagrams 05/31/21 10:30 05/31/21 10:30 Laboratory Results 05/31/21 05/31/21 05/31/21 Range/Units 10:30 10:30 10:30 WBC (4.0-10.5) K/mm3 RBC (4.1-5.6) M/mm3 Hgb (12.5-18.0) gm/dl Hct (42-50) % MCV (78-100) fl MCH (26-32) pg MCHC (32-36) g/dl RDW (11.5-14.0) % Plt Count (150-450) K/mm3 MPV (7.5-11.0) fl Gran % (36.0-66.0) % Eos # (Auto) (0-0.5) Absolute Lymphs (auto) (1.0-4.6) Absolute Monos (auto) (0.0-1.3) Lymphocytes % (24.0-44.0) % Monocytes % (0.0-12.0) % Eosinophils % (0.00-5.0) % Basophils % (0.0-0.4) % Absolute Granulocytes (1.4-6.9) Basophils # (0-0.4) PT 12.0 (9.4-12.5) SECONDS INR 1.02 (0.8-3.0) APTT 29.6 (25.1-36.5) SECONDS Sodium 139 (137-145) mmol/L Potassium 4.4 (3.5-5.1) mmol/L Chloride 102 (98-107) mmol/L Carbon Dioxide 23 (22-30) mmol/L Anion Gap 18.0 H (5-15) MEQ/L BUN 12 (9-20) mg/dL Creatinine 0.98 (0.66-1.25) mg/dL Estimated GFR > 60.0 ML/MIN Glucose 113 H (74-106) mg/dL POC Glucometer (74 to 106) mg/dL Calcium 9.5 (8.4-10.2) mg/dL Total Bilirubin 0.40 (0.2-1.3) mg/dL AST 31 (17-59) U/L ALT 24 (0-50) U/L Alkaline Phosphatase 91 (38-126) U/L Troponin I < 0.012 (0.000-0.034) ng/mL NT-Pro-B Natriuret Pep 39.7 (0-900) pg/mL Serum Total Protein 7.2 (6.3-8.2) g/dL Albumin 3.9 (3.5-5.0) g/dL 05/31/21 05/31/21 Range/Units 10:30 10:07 WBC 7.0 (4.0-10.5) K/mm3 RBC 3.97 L (4.1-5.6) M/mm3 Hgb 12.6 (12.5-18.0) gm/dl Hct 39.5 L (42-50) % MCV 99.5 (78-100) fl MCH 31.7 (26-32) pg MCHC 31.9 L (32-36) g/dl RDW 13.3 (11.5-14.0) % Plt Count 177 (150-450) K/mm3 MPV 10.3 (7.5-11.0) fl Gran % 64.3 (36.0-66.0) % Eos # (Auto) 0.12 (0-0.5) Absolute Lymphs (auto) 1.85 (1.0-4.6) Absolute Monos (auto) 0.51 (0.0-1.3) Lymphocytes % 26.6 (24.0-44.0) % Monocytes % 7.3 (0.0-12.0) % Eosinophils % 1.7 (0.00-5.0) % Basophils % 0.1 (0.0-0.4) % Absolute Granulocytes 4.46 (1.4-6.9) Basophils # 0.01 (0-0.4) PT (9.4-12.5) SECONDS INR (0.8-3.0) APTT (25.1-36.5) SECONDS Sodium (137-145) mmol/L Potassium (3.5-5.1) mmol/L Chloride (98-107) mmol/L Carbon Dioxide (22-30) mmol/L Anion Gap (5-15) MEQ/L BUN (9-20) mg/dL Creatinine (0.66-1.25) mg/dL Estimated GFR ML/MIN Glucose (74-106) mg/dL POC Glucometer 119 H (74 to 106) mg/dL Calcium (8.4-10.2) mg/dL Total Bilirubin (0.2-1.3) mg/dL AST (17-59) U/L ALT (0-50) U/L Alkaline Phosphatase (38-126) U/L Troponin I (0.000-0.034) ng/mL NT-Pro-B Natriuret Pep (0-900) pg/mL Serum Total Protein (6.3-8.2) g/dL Albumin (3.5-5.0) g/dL - Progress Progress: unchanged Progress Note: 05/31/21 11:29 65 years old is evaluated for right-sided numbness without any focal weakness. Patient is made stroke activate, prompt CT head is obtained which is negative for any acute findings. SOC neurology consult is obtained, patient is out of the window and has only sensory symptoms, did not recommend any intervention but aspirin and further work-up for stroke like MRI/MRAs and observation with telemetry. Patient has stable baseline work-up. EKG normal sinus without any A. fib. Discussed with Dr. Becerra and patient is being admitted for observation. Discussed with : Ignacio Will see patient in: hospital (observation) Counseled pt/family regarding: lab results, diagnosis, rad results - Departure Departure Disposition: Observation Clinical Impression: Stroke-like symptoms Condition: Stable Critical Care Time: Yes Critical Care Time(excluding separately billable procedures): Critical 30-74 mins Referrals: CAROLYN BECERRA MD [Primary Care Provider] -
[2021-05-31 10:34] LABS: Absolute Neutrophil Ct (ANC) 4.46 (1.4-6.9); BASOPHIL % 0.1 % (0.0-0.4); Basophil (Absolute #) 0.01 (0-0.4); Eosinophil % 1.7 % (0.00-5.0); Eosinophil (Absolute #) 0.12 (0-0.5); Hematocrit 39.5 % (42-50); Hemoglobin 12.6 gm/dl (12.5-18.0); Lymphocyte (Absolute #) 1.85 (1.0-4.6); Lymphocytes % 26.6 % (24.0-44.0); Mean Cell Volume 99.5 fl (78-100); Mean Corpuscular Hemoglobin 31.7 pg (26-32); Mean Corpuscular Hgb Concent. 31.9 g/dl (32-36); Mean Platelet Volume 10.3 fl (7.5-11.0); Monocyte (Absolute #) 0.51 (0.0-1.3); Monocytes % 7.3 % (0.0-12.0); Neutrophil % 64.3 % (36.0-66.0); Platelet Count 177 K/mm3 (150-450); Red Blood Count 3.97 M/mm3 (4.1-5.6); Red Cell Distribution Width 13.3 % (11.5-14.0)
[2021-05-31 10:36] LABS: INR 1.02 (0.8-3.0)
[2021-05-31 10:39] LABS: PTT 29.6 SECONDS (25.1-36.5)
[2021-05-31 10:49] LABS: ALBUMIN 3.9 g/dL (3.5-5.0); ALKALINE PHOSPHATASE 91 U/L (38-126); BLOOD UREA NITROGEN 12 mg/dL (9-20); CHLORIDE 102 mmol/L (98-107); Calcium 9.5 mg/dL (8.4-10.2); Carbon Dioxide 23 mmol/L (22-30); Creatinine 1 0.98 mg/dL (0.66-1.25); EST GLOMERULAR FILTRATION RATE > 60.0 ML/MIN; Glucose 113 mg/dL (74-106); NT PRO BNP 39.7 pg/mL (0-900); Potassium 4.4 mmol/L (3.5-5.1); SGOT/AST 31 U/L (17-59); SGPT/ALT 24 U/L (0-50); SODIUM 139 mmol/L (137-145); Total Protein 7.2 g/dL (6.3-8.2)
--- NOTE | 2021-05-31 11:14 | XRAY ---
Indication: Stroke symptoms. Comparison: September 15, 2020. Portable chest slightly rotated with new left base hazy interstitial alveolar opacity without consolidation/large effusion. Remaining heart and right lung unremarkable. Bony thorax intact again with mild degenerative changes.
[2021-05-31 11:32] LABS: Appearance CLEAR (CLEAR); Bilirubin NEGATIVE (NEGATIVE); Blood NEGATIVE Ery/ul (0-5); Glucose >=500 mg/dL (NEGATIVE); Ketones NEGATIVE (NEGATIVE); Leukocyte Esterase NEGATIVE (NEGATIVE); Mucus SLIGHT /HPF (NEGATIVE); Nitrite NEGATIVE (NEGATIVE); Protein,Urine Dip NEGATIVE (Negative); Specific Gravity 1.021 (1.005-1.025); Urobilinogen 2 mg/dL (0-1)
[2021-05-31] MEDS ORDERED: HUMALOG SQ PRN (16:54)
[2021-05-31] MEDS ORDERED: DUONEB 0.5-3 MG/3 ml Neb IH PRN (16:54)
[2021-05-31] MEDS: PROTONIX 40 MG IV IV SCH (18:32)
[2021-06-01 05:18] LABS: Absolute Neutrophil Ct (ANC) 3.89 (1.4-6.9); BASOPHIL % 0.2 % (0.0-0.4); Basophil (Absolute #) 0.01 (0-0.4); Eosinophil % 1.5 % (0.00-5.0); Hematocrit 39.6 % (42-50); Hemoglobin 12.7 gm/dl (12.5-18.0); Lymphocyte (Absolute #) 2.02 (1.0-4.6); Lymphocytes % 30.5 % (24.0-44.0); Mean Cell Volume 99.2 fl (78-100); Mean Corpuscular Hemoglobin 31.8 pg (26-32); Mean Corpuscular Hgb Concent. 32.1 g/dl (32-36); Mean Platelet Volume 10.4 fl (7.5-11.0); Monocyte (Absolute #) 0.61 (0.0-1.3); Monocytes % 9.2 % (0.0-12.0); Neutrophil % 58.6 % (36.0-66.0); Platelet Count 169 K/mm3 (150-450); Red Blood Count 3.99 M/mm3 (4.1-5.6); Red Cell Distribution Width 13.2 % (11.5-14.0); White Blood Count 6.6 K/mm3 (4.0-10.5)
[2021-06-01 05:39] LABS: ALBUMIN 3.8 g/dL (3.5-5.0); ALKALINE PHOSPHATASE 98 U/L (38-126); ANION GAP 16.1 MEQ/L (5-15); BLOOD UREA NITROGEN 15 mg/dL (9-20); CHLORIDE 101 mmol/L (98-107); Calcium 9.4 mg/dL (8.4-10.2); Carbon Dioxide 24 mmol/L (22-30); Creatinine 1 0.92 mg/dL (0.66-1.25); EST GLOMERULAR FILTRATION RATE > 60.0 ML/MIN; Glucose 98 mg/dL (74-106); Potassium 4.6 mmol/L (3.5-5.1); SGOT/AST 27 U/L (17-59); SGPT/ALT 23 U/L (0-50); SODIUM 137 mmol/L (137-145); Total Protein 7.3 g/dL (6.3-8.2)
[2021-06-01] MEDS: PROTONIX 40 MG IV IV SCH (08:39)
[2021-06-01] MEDS ORDERED: HUMALOG SQ PRN (08:57)
--- NOTE | 2021-06-01 09:03 | PCM.HP ---
History of Present Illness - Chief Complaint Chief Complaint: RIGHT SIDE NUMBNESS History of Present Illness: is a 65 year old male who presented to the ER with acute onset of numbness and difficulty using his right hand, he awoke with symptoms and was far beyond the window for lytic therapy, he denies blurry vision, no difficulty with speech of weakness in the legs. His symptoms remain with poor coordination with the right hand and numbness, he does not have gross weakness. - Review of Systems Constitutional: No Fever, No Chills Respiratory: No Cough, No Short Of Breath Cardiac: No Chest Pain, No Edema, No Syncope Abdominal/Gastrointestinal: No Abdominal Pain, No Nausea, No Vomiting, No Diarrhea Genitourinary Symptoms: No Dysuria Skin: No Rash Neurological: Focal Weakness, Sensory Changes, No Speech Changes All Other Systems: Reviewed and Negative Medications & Allergies Home Medications: Home Medication List Gabapentin [Neurontin] 800 mg PO QID 05/15/17 [History Confirmed 05/31/21] Hydrocodone/APAP 10/325 mg [[place] 10/325 MG Tablet] 1 tab PO Q6HPRN PRN 05/15/17 [History Confirmed 05/31/21] Levothyroxine Sodium 100 Mcg [Synthroid 100 Mcg] 100 mcg PO DAILY 05/15/17 [History Confirmed 05/31/21] Metformin HCl 1,000 mg PO BID 05/15/17 [History Confirmed 05/31/21] Metoprolol Tartrate 50 mg [Lopressor 50 MG] 75 mg PO BID 05/15/17 [History Confirmed 05/31/21] Empagliflozin [Jardiance] 25 mg PO DAILY 11/17/19 [History Confirmed 05/31/21] Tamsulosin HCl 0.4 mg [Flomax 0.4 MG] 0.4 mg PO DAILY 11/17/19 [History Confirmed 05/31/21] Tizanidine HCl 4 mg PO DAILY PRN 11/17/19 [History Confirmed 05/31/21] Clonidine HCl 0.1 mg PO DAILY 05/31/21 [History Confirmed 05/31/21] glipiZIDE [Glipizide] 10 mg PO DAILY 05/31/21 [History Confirmed 05/31/21] Allergies/Adverse Reactions: Allergies Allergy/AdvReac Type Severity Reaction Status Date / Time Tetracyclines Allergy Verified 05/31/21 10:05 - Past Medical History Past Medical History: Yes Neurological History: Peripheral Neuropathy, Other Cardiac History: Hypertension Respiratory History: No Pertinent History Endocrine Medical History: Diabetes Type II, Other Musculoskelatal History: Osteoarthritis GI Medical History: No Pertinent History History: No Pertinent History Pyscho-Social History: No Pertinent History Male Reproductive Disorders: No Pertinent History Comment: Recent MUSTAFA, some tingling into B medial brachium, fatty liver. - Past Surgical History Past Surgical History: Yes Neuro Surgical History: No Pertinent History Cardiac History: No Pertinent History Respiratory Surgery: No Pertinent History GI Surgical History: No Pertinent History Genitourinary Surgical Hx: No Pertinent History Musculskeletal Surgical Hx: Other Male Surgical History: No Pertinent History Other Surgical History: back surgery- spinal fusion, 2 rods - Social History Smoking Status: Current every day smoker How long have you smoked: 45 Exposure to second hand smoke: Yes Alcohol: None Drug Use: none - Physical Exam Vital Signs: Vital Signs - 24 hr Temp Pulse Resp BP Pulse Ox 06/01/21 07:40 98.1 F 75 20 170/83 95 06/01/21 03:37 98.1 F 72 18 164/83 96 06/01/21 00:00 98.3 F 78 18 147/75 94 L 05/31/21 19:58 98.2 F 79 19 158/81 95 05/31/21 17:15 98.3 F 76 18 190/93 96 05/31/21 17:13 98.3 F 76 18 190/93 96 05/31/21 16:57 98.3 F 76 18 190/93 96 05/31/21 16:47 16 179/106 97 05/31/21 16:00 78 18 181/98 98 05/31/21 15:00 77 18 169/102 98 05/31/21 14:00 80 18 169/102 98 05/31/21 11:30 97 05/31/21 10:57 75 162/104 96 05/31/21 09:58 97.3 F 84 162/104 97 General Appearance: no apparent distress, obese Neurologic Exam: alert, oriented x 3, cooperative, supervising nurse II-XII nml as tested, normal mood/affect, nml cerebellar function, sensory deficit, No motor deficits, No disoriented, No confusion, No agitation, No motor weakness, No facial droop, No aphasia, No dysarthria Respiratory Exam: normal breath sounds, lungs clear, No respiratory distress Cardiovascular Exam: regular rate/rhythm, normal heart sounds, normal peripheral pulses Gastrointestinal/Abdomen Exam: soft, normal bowel sounds, No tenderness, No mass Extremity Exam: normal inspection, normal range of motion, pelvis stable Skin Exam: normal color, warm, dry, No rash Results - Labs Lab/Micro Results: Lab Results-Last 24 Hours 05/31/21 05/31/21 05/31/21 Range/Units 10:07 10:30 10:30 WBC 7.0 (4.0-10.5) K/mm3 RBC 3.97 L (4.1-5.6) M/mm3 Hgb 12.6 (12.5-18.0) gm/dl Hct 39.5 L (42-50) % MCV 99.5 (78-100) fl MCH 31.7 (26-32) pg MCHC 31.9 L (32-36) g/dl RDW 13.3 (11.5-14.0) % Plt Count 177 (150-450) K/mm3 MPV 10.3 (7.5-11.0) fl Gran % 64.3 (36.0-66.0) % Eos # (Auto) 0.12 (0-0.5) Absolute Lymphs (auto) 1.85 (1.0-4.6) Absolute Monos (auto) 0.51 (0.0-1.3) Lymphocytes % 26.6 (24.0-44.0) % Monocytes % 7.3 (0.0-12.0) % Eosinophils % 1.7 (0.00-5.0) % Basophils % 0.1 (0.0-0.4) % Absolute Granulocytes 4.46 (1.4-6.9) Basophils # 0.01 (0-0.4) PT (9.4-12.5) SECONDS INR (0.8-3.0) APTT (25.1-36.5) SECONDS Sodium 139 (137-145) mmol/L Potassium 4.4 (3.5-5.1) mmol/L Chloride 102 (98-107) mmol/L Carbon Dioxide 23 (22-30) mmol/L Anion Gap 18.0 H (5-15) MEQ/L BUN 12 (9-20) mg/dL Creatinine 0.98 (0.66-1.25) mg/dL Estimated GFR > 60.0 ML/MIN Glucose 113 H (74-106) mg/dL POC Glucometer 119 H (74 to 106) mg/dL Hemoglobin A1c (4.5-6.0) % Calcium 9.5 (8.4-10.2) mg/dL Total Bilirubin 0.40 (0.2-1.3) mg/dL AST 31 (17-59) U/L ALT 24 (0-50) U/L Alkaline Phosphatase 91 (38-126) U/L Troponin I (0.000-0.034) ng/mL NT-Pro-B Natriuret Pep 39.7 (0-900) pg/mL Serum Total Protein 7.2 (6.3-8.2) g/dL Albumin 3.9 (3.5-5.0) g/dL Urine Color (YELLOW) Urine Appearance (CLEAR) Urine pH (5-6) Ur Specific [place] (1.005-1.025) Urine Protein (Negative) Urine Ketones (NEGATIVE) Urine Blood (0-5) Gerardo/ul Urine Nitrite (NEGATIVE) Urine Bilirubin (NEGATIVE) Urine Urobilinogen (0-1) mg/dL Ur Leukocyte Esterase (NEGATIVE) Urine WBC (Auto) (0-5) /HPF Urine RBC (Auto) (0-2) /HPF U Epithel Cells (Auto) (FEW) /HPF Urine Bacteria (Auto) (NEGATIVE) /HPF Urine Mucus (Auto) (NEGATIVE) /HPF Urine Culture Reflexed (NO) Urine Glucose (NEGATIVE) mg/dL SARS-CoV-2 (PCR) (NEGATIVE) 05/31/21 05/31/21 05/31/21 Range/Units 10:30 10:30 10:55 WBC (4.0-10.5) K/mm3 RBC (4.1-5.6) M/mm3 Hgb (12.5-18.0) gm/dl Hct (42-50) % MCV (78-100) fl MCH (26-32) pg MCHC (32-36) g/dl RDW (11.5-14.0) % Plt Count (150-450) K/mm3 MPV (7.5-11.0) fl Gran % (36.0-66.0) % Eos # (Auto) (0-0.5) Absolute Lymphs (auto) (1.0-4.6) Absolute Monos (auto) (0.0-1.3) Lymphocytes % (24.0-44.0) % Monocytes % (0.0-12.0) % Eosinophils % (0.00-5.0) % Basophils % (0.0-0.4) % Absolute Granulocytes (1.4-6.9) Basophils # (0-0.4) PT 12.0 (9.4-12.5) SECONDS INR 1.02 (0.8-3.0) APTT 29.6 (25.1-36.5) SECONDS Sodium (137-145) mmol/L Potassium (3.5-5.1) mmol/L Chloride (98-107) mmol/L Carbon Dioxide (22-30) mmol/L Anion Gap (5-15) MEQ/L BUN (9-20) mg/dL Creatinine (0.66-1.25) mg/dL Estimated GFR ML/MIN Glucose (74-106) mg/dL POC Glucometer (74 to 106) mg/dL Hemoglobin A1c (4.5-6.0) % Calcium (8.4-10.2) mg/dL Total Bilirubin (0.2-1.3) mg/dL AST (17-59) U/L ALT (0-50) U/L Alkaline Phosphatase (38-126) U/L Troponin I < 0.012 (0.000-0.034) ng/mL NT-Pro-B Natriuret Pep (0-900) pg/mL Serum Total Protein (6.3-8.2) g/dL Albumin (3.5-5.0) g/dL Urine Color YELLOW (YELLOW) Urine Appearance CLEAR (CLEAR) Urine pH 5.0 (5-6) Ur Specific [place] 1.021 (1.005-1.025) Urine Protein NEGATIVE (Negative) Urine Ketones NEGATIVE (NEGATIVE) Urine Blood NEGATIVE (0-5) Gerardo/ul Urine Nitrite NEGATIVE (NEGATIVE) Urine Bilirubin NEGATIVE (NEGATIVE) Urine Urobilinogen 2 (0-1) mg/dL Ur Leukocyte Esterase NEGATIVE (NEGATIVE) Urine WBC (Auto) NONE (0-5) /HPF Urine RBC (Auto) NONE (0-2) /HPF U Epithel Cells (Auto) NONE (FEW) /HPF Urine Bacteria (Auto) NONE (NEGATIVE) /HPF Urine Mucus (Auto) SLIGHT (NEGATIVE) /HPF Urine Culture Reflexed NO (NO) Urine Glucose >=500 (NEGATIVE) mg/dL SARS-CoV-2 (PCR) (NEGATIVE) 05/31/21 05/31/21 05/31/21 Range/Units 13:25 14:49 16:00 WBC (4.0-10.5) K/mm3 RBC (4.1-5.6) M/mm3 Hgb (12.5-18.0) gm/dl Hct (42-50) % MCV (78-100) fl MCH (26-32) pg MCHC (32-36) g/dl RDW (11.5-14.0) % Plt Count (150-450) K/mm3 MPV (7.5-11.0) fl Gran % (36.0-66.0) % Eos # (Auto) (0-0.5) Absolute Lymphs (auto) (1.0-4.6) Absolute Monos (auto) (0.0-1.3) Lymphocytes % (24.0-44.0) % Monocytes % (0.0-12.0) % Eosinophils % (0.00-5.0) % Basophils % (0.0-0.4) % Absolute Granulocytes (1.4-6.9) Basophils # (0-0.4) PT (9.4-12.5) SECONDS INR (0.8-3.0) APTT (25.1-36.5) SECONDS Sodium (137-145) mmol/L Potassium (3.5-5.1) mmol/L Chloride (98-107) mmol/L Carbon Dioxide (22-30) mmol/L Anion Gap (5-15) MEQ/L BUN (9-20) mg/dL Creatinine (0.66-1.25) mg/dL Estimated GFR ML/MIN Glucose (74-106) mg/dL POC Glucometer (74 to 106) mg/dL Hemoglobin A1c (4.5-6.0) % Calcium (8.4-10.2) mg/dL Total Bilirubin (0.2-1.3) mg/dL AST (17-59) U/L ALT (0-50) U/L Alkaline Phosphatase (38-126) U/L Troponin I < 0.012 < 0.012 (0.000-0.034) ng/mL NT-Pro-B Natriuret Pep (0-900) pg/mL Serum Total Protein (6.3-8.2) g/dL Albumin (3.5-5.0) g/dL Urine Color (YELLOW) Urine Appearance (CLEAR) Urine pH (5-6) Ur Specific [place] (1.005-1.025) Urine Protein (Negative) Urine Ketones (NEGATIVE) Urine Blood (0-5) Gerardo/ul Urine Nitrite (NEGATIVE) Urine Bilirubin (NEGATIVE) Urine Urobilinogen (0-1) mg/dL Ur Leukocyte Esterase (NEGATIVE) Urine WBC (Auto) (0-5) /HPF Urine RBC (Auto) (0-2) /HPF U Epithel Cells (Auto) (FEW) /HPF Urine Bacteria (Auto) (NEGATIVE) /HPF Urine Mucus (Auto) (NEGATIVE) /HPF Urine Culture Reflexed (NO) Urine Glucose (NEGATIVE) mg/dL SARS-CoV-2 (PCR) NEGATIVE (NEGATIVE) 05/31/21 05/31/21 05/31/21 Range/Units 16:58 17:30 20:00 WBC (4.0-10.5) K/mm3 RBC (4.1-5.6) M/mm3 Hgb (12.5-18.0) gm/dl Hct (42-50) % MCV (78-100) fl MCH (26-32) pg MCHC (32-36) g/dl RDW (11.5-14.0) % Plt Count (150-450) K/mm3 MPV (7.5-11.0) fl Gran % (36.0-66.0) % Eos # (Auto) (0-0.5) Absolute Lymphs (auto) (1.0-4.6) Absolute Monos (auto) (0.0-1.3) Lymphocytes % (24.0-44.0) % Monocytes % (0.0-12.0) % Eosinophils % (0.00-5.0) % Basophils % (0.0-0.4) % Absolute Granulocytes (1.4-6.9) Basophils # (0-0.4) PT (9.4-12.5) SECONDS INR (0.8-3.0) APTT (25.1-36.5) SECONDS Sodium (137-145) mmol/L Potassium (3.5-5.1) mmol/L Chloride (98-107) mmol/L Carbon Dioxide (22-30) mmol/L Anion Gap (5-15) MEQ/L BUN (9-20) mg/dL Creatinine (0.66-1.25) mg/dL Estimated GFR ML/MIN Glucose (74-106) mg/dL POC Glucometer 83 (74 to 106) mg/dL Hemoglobin A1c 5.56 (4.5-6.0) % Calcium (8.4-10.2) mg/dL Total Bilirubin (0.2-1.3) mg/dL AST (17-59) U/L ALT (0-50) U/L Alkaline Phosphatase (38-126) U/L Troponin I < 0.012 (0.000-0.034) ng/mL NT-Pro-B Natriuret Pep (0-900) pg/mL Serum Total Protein (6.3-8.2) g/dL Albumin (3.5-5.0) g/dL Urine Color (YELLOW) Urine Appearance (CLEAR) Urine pH (5-6) Ur Specific [place] (1.005-1.025) Urine Protein (Negative) Urine Ketones (NEGATIVE) Urine Blood (0-5) Gerardo/ul Urine Nitrite (NEGATIVE) Urine Bilirubin (NEGATIVE) Urine Urobilinogen (0-1) mg/dL Ur Leukocyte Esterase (NEGATIVE) Urine WBC (Auto) (0-5) /HPF Urine RBC (Auto) (0-2) /HPF U Epithel Cells (Auto) (FEW) /HPF Urine Bacteria (Auto) (NEGATIVE) /HPF Urine Mucus (Auto) (NEGATIVE) /HPF Urine Culture Reflexed (NO) Urine Glucose (NEGATIVE) mg/dL SARS-CoV-2 (PCR) (NEGATIVE) 05/31/21 05/31/21 06/01/21 Range/Units 20:25 22:45 04:38 WBC 6.6 (4.0-10.5) K/mm3 RBC 3.99 L (4.1-5.6) M/mm3 Hgb 12.7 (12.5-18.0) gm/dl Hct 39.6 L (42-50) % MCV 99.2 (78-100) fl MCH 31.8 (26-32) pg MCHC 32.1 (32-36) g/dl RDW 13.2 (11.5-14.0) % Plt Count 169 (150-450) K/mm3 MPV 10.4 (7.5-11.0) fl Gran % 58.6 (36.0-66.0) % Eos # (Auto) 0.10 (0-0.5) Absolute Lymphs (auto) 2.02 (1.0-4.6) Absolute Monos (auto) 0.61 (0.0-1.3) Lymphocytes % 30.5 (24.0-44.0) % Monocytes % 9.2 (0.0-12.0) % Eosinophils % 1.5 (0.00-5.0) % Basophils % 0.2 (0.0-0.4) % Absolute Granulocytes 3.89 (1.4-6.9) Basophils # 0.01 (0-0.4) PT (9.4-12.5) SECONDS INR (0.8-3.0) APTT (25.1-36.5) SECONDS Sodium (137-145) mmol/L Potassium (3.5-5.1) mmol/L Chloride (98-107) mmol/L Carbon Dioxide (22-30) mmol/L Anion Gap (5-15) MEQ/L BUN (9-20) mg/dL Creatinine (0.66-1.25) mg/dL Estimated GFR ML/MIN Glucose (74-106) mg/dL POC Glucometer 97 (74 to 106) mg/dL Hemoglobin A1c (4.5-6.0) % Calcium (8.4-10.2) mg/dL Total Bilirubin (0.2-1.3) mg/dL AST (17-59) U/L ALT (0-50) U/L Alkaline Phosphatase (38-126) U/L Troponin I < 0.012 (0.000-0.034) ng/mL NT-Pro-B Natriuret Pep (0-900) pg/mL Serum Total Protein (6.3-8.2) g/dL Albumin (3.5-5.0) g/dL Urine Color (YELLOW) Urine Appearance (CLEAR) Urine pH (5-6) Ur Specific [place] (1.005-1.025) Urine Protein (Negative) Urine Ketones (NEGATIVE) Urine Blood (0-5) Gearrdo/ul Urine Nitrite (NEGATIVE) Urine Bilirubin (NEGATIVE) Urine Urobilinogen (0-1) mg/dL Ur Leukocyte Esterase (NEGATIVE) Urine WBC (Auto) (0-5) /HPF Urine RBC (Auto) (0-2) /HPF U Epithel Cells (Auto) (FEW) /HPF Urine Bacteria (Auto) (NEGATIVE) /HPF Urine Mucus (Auto) (NEGATIVE) /HPF Urine Culture Reflexed (NO) Urine Glucose (NEGATIVE) mg/dL SARS-CoV-2 (PCR) (NEGATIVE) 06/01/21 06/01/21 Range/Units 04:38 06:44 WBC (4.0-10.5) K/mm3 RBC (4.1-5.6) M/mm3 Hgb (12.5-18.0) gm/dl Hct (42-50) % MCV (78-100) fl MCH (26-32) pg MCHC (32-36) g/dl RDW (11.5-14.0) % Plt Count (150-450) K/mm3 MPV (7.5-11.0) fl Gran % (36.0-66.0) % Eos # (Auto) (0-0.5) Absolute Lymphs (auto) (1.0-4.6) Absolute Monos (auto) (0.0-1.3) Lymphocytes % (24.0-44.0) % Monocytes % (0.0-12.0) % Eosinophils % (0.00-5.0) % Basophils % (0.0-0.4) % Absolute Granulocytes (1.4-6.9) Basophils # (0-0.4) PT (9.4-12.5) SECONDS INR (0.8-3.0) APTT (25.1-36.5) SECONDS Sodium 137 (137-145) mmol/L Potassium 4.6 (3.5-5.1) mmol/L Chloride 101 (98-107) mmol/L Carbon Dioxide 24 (22-30) mmol/L Anion Gap 16.1 H (5-15) MEQ/L BUN 15 (9-20) mg/dL Creatinine 0.92 (0.66-1.25) mg/dL Estimated GFR > 60.0 ML/MIN Glucose 98 (74-106) mg/dL POC Glucometer 92 (74 to 106) mg/dL Hemoglobin A1c (4.5-6.0) % Calcium 9.4 (8.4-10.2) mg/dL Total Bilirubin 0.50 (0.2-1.3) mg/dL AST 27 (17-59) U/L ALT 23 (0-50) U/L Alkaline Phosphatase 98 (38-126) U/L Troponin I (0.000-0.034) ng/mL NT-Pro-B Natriuret Pep (0-900) pg/mL Serum Total Protein 7.3 (6.3-8.2) g/dL Albumin 3.8 (3.5-5.0) g/dL Urine Color (YELLOW) Urine Appearance (CLEAR) Urine pH (5-6) Ur Specific [place] (1.005-1.025) Urine Protein (Negative) Urine Ketones (NEGATIVE) Urine Blood (0-5) Gerardo/ul Urine Nitrite (NEGATIVE) Urine Bilirubin (NEGATIVE) Urine Urobilinogen (0-1) mg/dL Ur Leukocyte Esterase (NEGATIVE) Urine WBC (Auto) (0-5) /HPF Urine RBC (Auto) (0-2) /HPF U Epithel Cells (Auto) (FEW) /HPF Urine Bacteria (Auto) (NEGATIVE) /HPF Urine Mucus (Auto) (NEGATIVE) /HPF Urine Culture Reflexed (NO) Urine Glucose (NEGATIVE) mg/dL SARS-CoV-2 (PCR) (NEGATIVE) Accuchecks Date 06/01/21 Date 05/31/21 Date 05/31/21 Date 05/31/21 Time 22:00 Time 16:58 - Radiology Impressions Radiology Exams & Impressions: Radiology Procedures Category Date Time Status CHEST 1 VIEW (PORTABLE) Stat Exams 05/31/21 10:28 Completed HEAD WITHOUT CONTRAST [CT] Stat Exams 05/31/21 09:55 Completed MRA BRAIN WITHOUT CONTRAST [MRI] Routine Exams 06/01/21 08:56 Ordered MRA NECK WITHOUT CONTRAST [MRI] Routine Exams 06/01/21 08:56 Ordered MRI BRAIN W/O CONTRAST [MRI] Routine Exams 06/01/21 08:55 Ordered Assessment/Plan (1) CVA (cerebral vascular accident) Current Visit: Yes Status: Acute Assessment & Plan: aspirin 325mg daily, continue home hypertensive meds. add statin, await MRI findings. OT consult Code(s): I63.9 - CEREBRAL INFARCTION, UNSPECIFIED (2) Type 2 diabetes mellitus Current Visit: Yes Status: Acute Assessment & Plan: very well controlled, a1c 5.56% (3) Hypertension Current Visit: No Status: Acute Assessment & Plan: currently elevated secondary to cva, will continue home meds and permit h ypertension at this time while awaiting MRI results Code(s): I10 - ESSENTIAL (PRIMARY) HYPERTENSION
[2021-06-01] MEDS ORDERED: Zanaflex 4 MG PO PRN ×2 (09:57→10:45)
[2021-06-01] MEDS ORDERED: HYDROCODONE-ACETAMIN 10-325 MG PO PRN (09:57)
[2021-06-01] MEDS ORDERED: ECOTRIN 81 MG PO SCH (10:00)
[2021-06-01] MEDS ORDERED: NEURONTIN 300 MG PO SCH (10:00)
[2021-06-01] MEDS ORDERED: Ecotrin 325 MG PO SCH (10:00)
[2021-06-01] MEDS ORDERED: Lopressor 50 MG PO SCH (10:00)
[2021-06-01] MEDS: Flomax 0.4 MG PO SCH (10:35)
[2021-06-01] MEDS: SYNTHROID 100 MCG PO SCH (10:35)
--- NOTE | 2021-06-01 10:36 | XRAY ---
Indication: Right hand weakness. Hypertension. Sagittal, coronal, and axial MRI brain performed without contrast using T1, T2, FLAIR, diffusion, and ADC sequences. Comparison: July 17, 2020. There remains age-appropriate global atrophy and minimal periventricular degenerative micro-ischemia signal bilaterally. Left thalamus demonstrates new 5 mm focus of restricted signal favoring ischemia. No acute intracranial hemorrhage, abnormal extra-axial fluid collection, or mass effect. Fourth ventricle is midline without hydrocephalus. 7/8 cranial nerve complex bilaterally symmetric. Normal flow void signal within the major intracerebral circulation. Normal appearing craniocervical junction and sella turcica. Paranasal sinuses are clear. Impression: 1. New tiny ischemia involving left thalamus. No mass effect or hemorrhage. 2. Again atrophy and minimal degenerative micro-ischemia within normal limits for patient's age.
[2021-06-01] MEDS: Neurontin 400 MG PO SCH ×4 (10:48→21:31)
[2021-06-01 10:49] LABS: Risk Ratio 9.4
[2021-06-01] MEDS: Nicoderm CQ 21 MG TOP SCH (15:34)
--- NOTE | 2021-06-01 16:18 | XRAY ---
Indication: CVA. Right-sided numbness. Two-dimensional sonogram and color Doppler imaging of the carotid arteries of the neck performed. Comparison: July 17, 2020. Examination of the right carotid circulation again demonstrates widely patent common carotid artery. There remains mild heterogeneous plaquing in the carotid bulb and proximal internal carotid artery and minimal soft plaquing in the external carotid artery. PSV of the CCA is 58 cm/s. PSV of the ICA is 69 cm/s. ICA/CCA ratio is 1.2. Normal antegrade vertebral artery flow. Examination of the left carotid circulation again demonstrates widely patent common carotid and external carotid arteries. There remains mild heterogeneous plaquing in the carotid bulb again slightly extending into the origin of the internal carotid artery. PSV of the CCA is 48 cm/s. PSV of the ICA is 63 cm/s. ICA/CCA ratio is 1.3. Normal antegrade vertebral artery flow. Impression: Stable mild arteriosclerotic plaquing bilaterally as detailed. Velocity measurements and ratios remain negative for hemodynamically significant flow-limiting stenosis.
[2021-06-01] MEDS: Catapres 0.1 MG PO SCH (16:35)
[2021-06-01] MEDS: TYLENOL 325 MG PO PRN (19:41)
[2021-06-01] MEDS ORDERED: ECOTRIN 81 MG PO ONE (19:52)
[2021-06-01] MEDS: Lopressor 50 MG PO SCH (21:30)
[2021-06-01] MEDS: Lopressor 25MG Tab PO SCH (21:30)
[2021-06-01] MEDS: ZOCOR 20MG PO SCH (21:30)
[2021-06-02] MEDS: TYLENOL 325 MG PO PRN (00:22)
[2021-06-02 06:16] LABS: Absolute Neutrophil Ct (ANC) 4.56 (1.4-6.9); BASOPHIL % 0.1 % (0.0-0.4); Basophil (Absolute #) 0.01 (0-0.4); Eosinophil % 1.2 % (0.00-5.0); Eosinophil (Absolute #) 0.09 (0-0.5); Hematocrit 41.2 % (42-50); Hemoglobin 13.3 gm/dl (12.5-18.0); Lymphocyte (Absolute #) 2.11 (1.0-4.6); Lymphocytes % 28.2 % (24.0-44.0); Mean Cell Volume 96.7 fl (78-100); Mean Corpuscular Hemoglobin 31.2 pg (26-32); Mean Corpuscular Hgb Concent. 32.3 g/dl (32-36); Mean Platelet Volume 10.4 fl (7.5-11.0); Monocytes % 9.4 % (0.0-12.0); Neutrophil % 61.1 % (36.0-66.0); Platelet Count 191 K/mm3 (150-450); Red Blood Count 4.26 M/mm3 (4.1-5.6); Red Cell Distribution Width 12.9 % (11.5-14.0); White Blood Count 7.5 K/mm3 (4.0-10.5)
[2021-06-02 06:36] LABS: ANION GAP 18.7 MEQ/L (5-15); BLOOD UREA NITROGEN 15 mg/dL (9-20); CHLORIDE 100 mmol/L (98-107); Calcium 9.6 mg/dL (8.4-10.2); Carbon Dioxide 23 mmol/L (22-30); EST GLOMERULAR FILTRATION RATE > 60.0 ML/MIN; Glucose 177 mg/dL (74-106); Potassium 4.1 mmol/L (3.5-5.1); SODIUM 138 mmol/L (137-145)
--- NOTE | 2021-06-02 08:39 | PCM.NOTE ---
Date and Time: 06/02/21831 Subjective Assessment: still some weakness on right side - Review of Systems Constitutional: No Fever, No Chills Eyes: No Symptoms Ears, Nose, & Throat: No Symptoms Respiratory: No Cough, No Short Of Breath Cardiac: No Chest Pain, No Edema, No Syncope Abdominal/Gastrointestinal: No Abdominal Pain, No Nausea, No Vomiting, No Diarrhea Genitourinary Symptoms: No Dysuria Musculoskeletal: No Back Pain, No Neck Pain Skin: No Rash Neurological: Focal Weakness (right side UE weakness), No Dizziness, No Sensory Changes Psychological: No Symptoms Endocrine: No Symptoms Hematologic/Lymphatic: No Symptoms Immunological/Allergic: No Symptoms Objective Exam General Appearance: no apparent distress, alert Neurologic Exam: alert, oriented x 3, sensation nml, sensory deficit (right upper ext), No motor deficits Skin Exam: normal color, warm, dry Eye Exam: PERRL, EOMI, eyes nml inspection Ears, Nose, Throat Exam: normal ENT inspection, pharynx normal, moist mucous membranes Neck Exam: normal inspection, non-tender, supple, full range of motion Respiratory Exam: normal breath sounds, lungs clear, No respiratory distress Cardiovascular Exam: regular rate/rhythm, normal heart sounds Gastrointestinal/Abdomen Exam: soft, No tenderness, No mass Extremity Exam: normal inspection, normal range of motion Back Exam: normal inspection, normal range of motion, No CVA tenderness, No vertebral tenderness Male Genitalia Exam: deferred Rectal Exam: deferred OBJECTIVE DATA Vital Signs: Vital Signs - 24 hr Temp Pulse Resp BP Pulse Ox 06/02/21 07:16 98.3 F 77 16 176/97 94 L 06/02/21 04:00 98.2 F 72 18 176/92 96 06/02/21 00:00 97.9 F 77 20 175/87 94 L 06/01/21 19:57 97.9 F 82 22 156/84 94 L 06/01/21 16:00 98.2 F 78 18 168/81 96 06/01/21 11:53 98.5 F 74 18 154/72 97 Pain Assessment - Last Documented Pain Intensity 0 Pain Scale Used 0-10 Pain Scale Intake and Output: Intake & Output 05/30/21 05/31/21 06/01/21 06/02/21 11:59 11:59 11:59 11:59 Intake Total 720 1240 Balance 720 1240 Weight 110 kg 109.3 kg Lab Results: Lab Results-Last 24 Hours 06/01/21 06/01/21 06/01/21 Range/Units 08:59 11:27 16:27 WBC (4.0-10.5) K/mm3 RBC (4.1-5.6) M/mm3 Hgb (12.5-18.0) gm/dl Hct (42-50) % MCV (78-100) fl MCH (26-32) pg MCHC (32-36) g/dl RDW (11.5-14.0) % Plt Count (150-450) K/mm3 MPV (7.5-11.0) fl Gran % (36.0-66.0) % Eos # (Auto) (0-0.5) Absolute Lymphs (auto) (1.0-4.6) Absolute Monos (auto) (0.0-1.3) Lymphocytes % (24.0-44.0) % Monocytes % (0.0-12.0) % Eosinophils % (0.00-5.0) % Basophils % (0.0-0.4) % Absolute Granulocytes (1.4-6.9) Basophils # (0-0.4) Sodium (137-145) mmol/L Potassium (3.5-5.1) mmol/L Chloride (98-107) mmol/L Carbon Dioxide (22-30) mmol/L Anion Gap (5-15) MEQ/L BUN (9-20) mg/dL Creatinine (0.66-1.25) mg/dL Estimated GFR ML/MIN Glucose (74-106) mg/dL POC Glucometer 132 H 200 H (74 to 106) mg/dL Calcium (8.4-10.2) mg/dL Triglycerides 204 H (30-150) mg/dL Cholesterol 184 (50-200) mg/dL LDL Cholesterol 127 H (30-100) mg/dL HDL Cholesterol 20 L (40-60) mg/dL Heart Disease Risk Ratio 9.4 06/01/21 06/02/21 06/02/21 Range/Units 20:59 05:40 05:40 WBC 7.5 (4.0-10.5) K/mm3 RBC 4.26 (4.1-5.6) M/mm3 Hgb 13.3 (12.5-18.0) gm/dl Hct 41.2 L (42-50) % MCV 96.7 (78-100) fl MCH 31.2 (26-32) pg MCHC 32.3 (32-36) g/dl RDW 12.9 (11.5-14.0) % Plt Count 191 (150-450) K/mm3 MPV 10.4 (7.5-11.0) fl Gran % 61.1 (36.0-66.0) % Eos # (Auto) 0.09 (0-0.5) Absolute Lymphs (auto) 2.11 (1.0-4.6) Absolute Monos (auto) 0.70 (0.0-1.3) Lymphocytes % 28.2 (24.0-44.0) % Monocytes % 9.4 (0.0-12.0) % Eosinophils % 1.2 (0.00-5.0) % Basophils % 0.1 (0.0-0.4) % Absolute Granulocytes 4.56 (1.4-6.9) Basophils # 0.01 (0-0.4) Sodium 138 (137-145) mmol/L Potassium 4.1 (3.5-5.1) mmol/L Chloride 100 (98-107) mmol/L Carbon Dioxide 23 (22-30) mmol/L Anion Gap 18.7 H (5-15) MEQ/L BUN 15 (9-20) mg/dL Creatinine 0.80 (0.66-1.25) mg/dL Estimated GFR > 60.0 ML/MIN Glucose 177 H (74-106) mg/dL POC Glucometer 197 H (74 to 106) mg/dL Calcium 9.6 (8.4-10.2) mg/dL Triglycerides (30-150) mg/dL Cholesterol (50-200) mg/dL LDL Cholesterol (30-100) mg/dL HDL Cholesterol (40-60) mg/dL Heart Disease Risk Ratio 06/02/ Range/Units 06:58 WBC (4.0-10.5) K/mm3 RBC (4.1-5.6) M/mm3 Hgb (12.5-18.0) gm/dl Hct (42-50) % MCV (78-100) fl MCH (26-32) pg MCHC (32-36) g/dl RDW (11.5-14.0) % Plt Count (150-450) K/mm3 MPV (7.5-11.0) fl Gran % (36.0-66.0) % Eos # (Auto) (0-0.5) Absolute Lymphs (auto) (1.0-4.6) Absolute Monos (auto) (0.0-1.3) Lymphocytes % (24.0-44.0) % Monocytes % (0.0-12.0) % Eosinophils % (0.00-5.0) % Basophils % (0.0-0.4) % Absolute Granulocytes (1.4-6.9) Basophils # (0-0.4) Sodium (137-145) mmol/L Potassium (3.5-5.1) mmol/L Chloride (98-107) mmol/L Carbon Dioxide (22-30) mmol/L Anion Gap (5-15) MEQ/L BUN (9-20) mg/dL Creatinine (0.66-1.25) mg/dL Estimated GFR ML/MIN Glucose (74-106) mg/dL POC Glucometer 130 H (74 to 106) mg/dL Calcium (8.4-10.2) mg/dL Triglycerides (30-150) mg/dL Cholesterol (50-200) mg/dL LDL Cholesterol (30-100) mg/dL HDL Cholesterol (40-60) mg/dL Heart Disease Risk Ratio Radiology Exams: Radiology Procedures Category Date Time Status CAROTID BILATERAL [US] Routine Exams 06/01/21 15:10 Completed CHEST 1 VIEW (PORTABLE) Stat Exams 05/31/21 10:28 Completed ECHO W/2D AND DOPPLER [US] Routine Exams 06/01/21 15:10 Taken HEAD WITHOUT CONTRAST [CT] Stat Exams 05/31/21 09:55 Completed MRI BRAIN W/O CONTRAST [MRI] Routine Exams 06/01/21 08:55 Completed MRI/MRI BRAIN W/O CONTRAST Indication: Right hand weakness. Hypertension. Sagittal, coronal, and axial MRI brain performed without contrast using T1, T2, FLAIR, diffusion, and ADC sequences. Comparison: July 17, 2020. There remains age-appropriate global atrophy and minimal periventricular degenerative micro-ischemia signal bilaterally. Left thalamus demonstrates new 5 mm focus of restricted signal favoring ischemia. No acute intracranial hemorrhage, abnormal extra-axial fluid collection, or mass effect. Fourth ventricle is midline without hydrocephalus. 7/8 cranial nerve complex bilaterally symmetric. Normal flow void signal within the major intracerebral circulation. Normal appearing craniocervical junction and sella turcica. Paranasal sinuses are clear. Impression: 1. New tiny ischemia involving left thalamus. No mass effect or hemorrhage. 2. Again atrophy and minimal degenerative micro-ischemia within normal limits for patient's age. Assessment/Plan (1) Arterial ischemic stroke, vertebrobasilar, thalamic, acute Current Visit: Yes Status: Acute Qualifiers: Laterality: left Qualified Code(s): I63.212 - Cerebral infarction due to unspecified occlusion or stenosis of left vertebral artery; I63.22 - Cerebral infarction due to unspecified occlusion or stenosis of basilar artery Assessment & Plan: Chief Complaint Diagnosis RIGHT SIDE NUMBNESS Allergies Allergy/AdvReac Type Severity Reaction Status Date / Time Tetracyclines Allergy Verified 05/31/21 10:05 Vital Signs (Last 24 hours) Temp Pulse Resp BP Pulse Ox 06/02/21 07:16 98.3 F 77 16 176/97 94 L 06/02/21 04:00 98.2 F 72 18 176/92 96 06/02/21 00:00 97.9 F 77 20 175/87 94 L 06/01/21 19:57 97.9 F 82 22 156/84 94 L 06/01/21 16:00 98.2 F 78 18 168/81 96 06/01/21 11:53 98.5 F 74 18 154/72 97 Home Medications Medication Instructions Recorded Confirmed Last Taken Type Clonidine HCl 0.1 mg PO DAILY 05/31/21 05/31/21 05/31/21 History glipiZIDE [Glipizide] 10 mg PO DAILY 05/31/21 05/31/21 05/31/21 History Current Medications Generic Name Dose Route Start Last Admin Trade Name Freq PRN Reason Stop Dose Admin Acetaminophen 650 mg 05/31/21 16:54 06/02/21 00:22 Tylenol 325 Mg PO 06/30/21 16:53 650 mg Q4H PRN PRN Administration PAIN AND/OR FEVER Hydrocodone Bitart/Acetaminophen 1 tablet 06/01/21 09:57 Hydrocodone-Acetamin 10-325 Mg PO 06/06/21 09:56 Q6HPRN PRN PAIN Aspirin 81 mg 06/02/21 10:00 Ecotrin 81 Mg PO 07/02/21 09:59 DAILY SARA Clonidine 0.1 mg 06/01/21 10:00 06/01/21 16:35 Catapres 0.1 Mg PO 07/01/21 09:59 Not Given DAILY SARA Clopidogrel Bisulfate 75 mg 06/02/21 10:00 Plavix 75 Mg Tablet PO 07/02/21 09:59 DAILY SARA Gabapentin 800 mg 06/01/21 10:45 06/01/21 21:31 Neurontin 400 Mg PO 07/01/21 10:44 800 mg QID SARA Administration Insulin Human Lispro 0 unit 05/31/21 16:54 Humalog SQ 06/30/21 16:53 UD PRN HYPERGLYCEMIA Levothyroxine Sodium 100 mcg 06/01/21 10:00 06/01/21 10:35 Synthroid 100 Mcg PO 07/01/21 09:59 100 mcg DAILY SARA Administration Metoprolol Tartrate 50 mg 06/01/21 22:00 06/01/21 21:30 Lopressor 50 Mg PO 07/01/21 09:59 50 mg BID SARA Administration Metoprolol Tartrate 25 mg 06/01/21 22:00 06/01/21 21:30 Lopressor 25mg Tab PO 07/01/21 21:59 25 mg BID SARA Administration Nicotine 21 mg 06/01/21 15:00 06/01/21 15:34 Nicoderm Cq 21 Mg TOP 07/01/21 14:59 21 mg Q24H SARA Administration Pantoprazole Sodium 40 mg 05/31/21 18:00 06/01/21 08:39 Protonix 40 Mg Iv IV 06/30/21 17:59 40 mg Q24H10 SARA Administration Simvastatin 20 mg 06/01/21 22:00 06/01/21 21:30 Zocor 20mg PO 07/01/21 21:59 20 mg HS SARA Administration Tamsulosin HCl 0.4 mg 06/01/21 10:00 06/01/21 10:35 Flomax 0.4 Mg PO 07/01/21 09:59 0.4 mg DAILY SARA Administration Tizanidine HCl 4 mg 06/01/21 10:45 06/01/21 10:41 Zanaflex 4 Mg PO 07/01/21 09:56 4 mg DAILY PRN PRN Administration MUSCLE SPASMS Discontinued Medications Generic Name Dose Route Start Last Admin Trade Name Freq PRN Reason Stop Dose Admin Albuterol/Ipratropium 3 ml 05/31/21 16:54 Duoneb 0.5-3 Mg/3 Ml Neb IH 06/30/21 16:53 Q4HPRN PRN SHORTNESS OF BREATH/WHEEZING Aspirin 324 mg 06/01/21 10:00 05/31/21 11:55 Ecotrin 81 Mg PO 07/01/21 09:59 324 mg DAILY SARA Administration Aspirin 325 mg 06/01/21 10:00 06/01/21 10:34 Ecotrin 325 Mg PO 07/01/21 09:59 325 mg QAM SARA Administration Aspirin 81 mg 06/01/21 19:52 06/01/21 20:10 Ecotrin 81 Mg PO 06/01/21 19:53 81 mg 1XONLY ONE Administration Gabapentin 800 mg 06/01/21 10:00 06/01/21 10:56 Neurontin 300 Mg PO 07/01/21 09:59 Not Given QID SARA Insulin Human Lispro 0 unit 06/01/21 08:57 Humalog SQ 07/01/21 08:56 UD PRN HYPERGLYCEMIA Metoprolol Tartrate 75 mg 06/01/21 10:00 06/01/21 10:35 Lopressor 50 Mg PO 07/01/21 09:59 75 mg BID SARA Administration Tizanidine HCl 4 mg 06/01/21 09:57 06/01/21 10:35 Zanaflex 4 Mg PO 07/01/21 09:56 4 mg DAILY PRN Administration MUSCLE SPASMS Intake & Output (Last 24 hours) 05/30/21 05/31/21 06/01/21 06/02/21 11:59 11:59 11:59 11:59 Intake Total 720 1240 Balance 720 1240 Weight 110 kg 109.3 kg Laboratory Results (Last 24 hours) 06/02/21 06/02/21 06/02/21 06:58 05:40 05:40 WBC 7.5 RBC 4.26 Hgb 13.3 Hct 41.2 L MCV 96.7 MCH 31.2 MCHC 32.3 RDW 12.9 Plt Count 191 MPV 10.4 Gran % 61.1 Eos # (Auto) 0.09 Absolute Lymphs (auto) 2.11 Absolute Monos (auto) 0.70 Lymphocytes % 28.2 Monocytes % 9.4 Eosinophils % 1.2 Basophils % 0.1 Absolute Granulocytes 4.56 Basophils # 0.01 Sodium 138 Potassium 4.1 Chloride 100 Carbon Dioxide 23 Anion Gap 18.7 H BUN 15 Creatinine 0.80 Estimated GFR > 60.0 Glucose 177 H POC Glucometer 130 H Calcium 9.6 Triglycerides Cholesterol LDL Cholesterol HDL Cholesterol Heart Disease Risk Ratio 06/01/21 06/01/21 06/01/21 20:59 16:27 11:27 WBC RBC Hgb Hct MCV MCH MCHC RDW Plt Count MPV Gran % Eos # (Auto) Absolute Lymphs (auto) Absolute Monos (auto) Lymphocytes % Monocytes % Eosinophils % Basophils % Absolute Granulocytes Basophils # Sodium Potassium Chloride Carbon Dioxide Anion Gap BUN Creatinine Estimated GFR Glucose POC Glucometer 197 H 200 H 132 H Calcium Triglycerides Cholesterol LDL Cholesterol HDL Cholesterol Heart Disease Risk Ratio 06/01/21 08:59 WBC RBC Hgb Hct MCV MCH MCHC RDW Plt Count MPV Gran % Eos # (Auto) Absolute Lymphs (auto) Absolute Monos (auto) Lymphocytes % Monocytes % Eosinophils % Basophils % Absolute Granulocytes Basophils # Sodium Potassium Chloride Carbon Dioxide Anion Gap BUN Creatinine Estimated GFR Glucose POC Glucometer Calcium Triglycerides 204 H Cholesterol 184 LDL Cholesterol 127 H HDL Cholesterol 20 L Heart Disease Risk Ratio 9.4 Orders (Last 24 hours) Category Date Time Status CAROTID BILATERAL [US] Routine Exams 06/01/21 15:10 Completed ECHO W/2D AND DOPPLER [US] Routine Exams 06/01/21 15:10 Taken MRI BRAIN W/O CONTRAST [MRI] Routine Exams 06/01/21 08:55 Completed BMP AM.LAB Lab 06/02/21 05:40 Completed CBC W DIFF AM.LAB Lab 06/02/21 05:40 Completed LIPID PROFILE Routine Lab 06/01/21 08:59 Completed POCT GLUCOSE Stat Lab 06/01/21 11:27 Completed POCT GLUCOSE Stat Lab 06/01/21 16:27 Completed POCT GLUCOSE Stat Lab 06/01/21 20:59 Completed POCT GLUCOSE Stat Lab 06/02/21 06:58 Completed Aspirin EC 325 mg [Ecotrin 325 MG] Med 06/01/21 10:00 Discontinued 325 mg PO QAM Aspirin EC 81 mg [Ecotrin 81 mg] Med 06/01/21 10:00 Discontinued 324 mg PO DAILY Aspirin EC 81 mg [Ecotrin 81 mg] Med 06/01/21 19:52 Discontinued 81 mg PO 1XONLY ONE Aspirin EC 81 mg [Ecotrin 81 mg] Med 06/02/21 10:00 Active 81 mg PO DAILY Clonidine HCl 0.1 mg [Catapres 0.1 MG] Med 06/01/21 10:00 Active 0.1 mg PO DAILY Clopidogrel Bisulfate 75 mg [PLAVIX 75 MG Tablet] Med 06/02/21 10:00 Active 75 mg PO DAILY Gabapentin 300 mg [Neurontin 300 mg] Med 06/01/21 10:00 Discontinued 800 mg PO QID Gabapentin 400 mg [Neurontin 400 MG] Med 06/01/21 10:45 Active 800 mg PO QID Hydrocodone/Acetaminophen [Hydrocodone-Acetamin 10-325 Med 06/01/21 09:57 Active mg] 1 tablet PO Q6HPRN PRN Insulin Lispro [Humalog] Med 06/01/21 08:57 Discontinued See Dose Instructions SQ UD PRN Levothyroxine Sodium 100 Mcg [Synthroid 100 Mcg] Med 06/01/21 10:00 Active 100 mcg PO DAILY Metoprolol Tartrate 25 mg [Lopressor 25MG Tab] Med 06/01/21 22:00 Active 25 mg PO BID Metoprolol Tartrate 50 mg [Lopressor 50 MG] Med 06/01/21 22:00 Active 50 mg PO BID Metoprolol Tartrate 50 mg [Lopressor 50 MG] Med 06/01/21 10:00 Discontinued 75 mg PO BID Nicotine 21 mg [Nicoderm CQ 21 MG] Med 06/01/21 15:00 Active 21 mg TOP Q24H Simvastatin 20Mg [Zocor 20Mg] Med 06/01/21 22:00 Active 20 mg PO HS Tamsulosin HCl 0.4 mg [Flomax 0.4 MG] Med 06/01/21 10:00 Active 0.4 mg PO DAILY Tizanidine HCl 4 mg [Zanaflex 4 MG] Med 06/01/21 09:57 Discontinued 4 mg PO DAILY PRN Tizanidine HCl 4 mg [Zanaflex 4 MG] Med 06/01/21 10:45 Active 4 mg PO DAILY PRN PRN OT Eval and Treat (MD Order) ROUTINE OT 06/01/21 08:57 Completed Patient Care Notes (Last 24 hours) 06/02/21 04:13 Nursing Note by Altagracia Martinez PRIMARY NURSE MADE AWARE OF PT BP. Initialized on 06/02/21 04:13 - END OF NOTE 06/02/21 00:00 (created 06/02/21 00:07) Nursing Note by Altagracia Martinez PRIMARY NURSE MADE AWARE OF INCREASED BP. Initialized on 06/02/21 00:07 - END OF NOTE 06/01/21 19:52 Nursing Note by Carla Lawrence Called Dr. Koo about Pt complaint of numbness on right side of his face. Order received for 81 ASA now. The rest of the NIHSS negative at this time. Initialized on 06/01/21 19:52 - END OF NOTE will get CT carotid and vertebral angiogram Code(s): I63.219 - CEREB INFRC DUE TO UNSP OCCLS OR STENOSIS OF UNSP VERTEB ART; I63.22 - CEREB INFRC DUE TO UNSP OCCLS OR STENOSIS OF BASILAR ARTERY (2) CVA (cerebral vascular accident) Current Visit: Yes Status: Acute Qualifiers: Precerebral and cerebral artery: cerebellar artery Laterality of affected vessel: left Assessment & Plan: Chief Complaint Diagnosis RIGHT SIDE NUMBNESS Allergies Allergy/AdvReac Type Severity Reaction Status Date / Time Tetracyclines Allergy Verified 05/31/21 10:05 Vital Signs (Last 24 hours) Temp Pulse Resp BP Pulse Ox 06/02/21 07:16 98.3 F 77 16 176/97 94 L 06/02/21 04:00 98.2 F 72 18 176/92 96 06/02/21 00:00 97.9 F 77 20 175/87 94 L 06/01/21 19:57 97.9 F 82 22 156/84 94 L 06/01/21 16:00 98.2 F 78 18 168/81 96 06/01/21 11:53 98.5 F 74 18 154/72 97 Home Medications Medication Instructions Recorded Confirmed Last Taken Type Clonidine HCl 0.1 mg PO DAILY 05/31/21 05/31/21 05/31/21 History glipiZIDE [Glipizide] 10 mg PO DAILY 05/31/21 05/31/21 05/31/21 History Current Medications Generic Name Dose Route Start Last Admin Trade Name Freq PRN Reason Stop Dose Admin Acetaminophen 650 mg 05/31/21 16:54 06/02/21 00:22 Tylenol 325 Mg PO 06/30/21 16:53 650 mg Q4H PRN PRN Administration PAIN AND/OR FEVER Hydrocodone Bitart/Acetaminophen 1 tablet 06/01/21 09:57 Hydrocodone-Acetamin 10-325 Mg PO 06/06/21 09:56 Q6HPRN PRN PAIN Aspirin 81 mg 06/02/21 10:00 Ecotrin 81 Mg PO 07/02/21 09:59 DAILY SARA Clonidine 0.1 mg 06/01/21 10:00 06/01/21 16:35 Catapres 0.1 Mg PO 07/01/21 09:59 Not Given DAILY SARA Clopidogrel Bisulfate 75 mg 06/02/21 10:00 Plavix 75 Mg Tablet PO 07/02/21 09:59 DAILY SARA Gabapentin 800 mg 06/01/21 10:45 06/01/21 21:31 Neurontin 400 Mg PO 07/01/21 10:44 800 mg QID SARA Administration Insulin Human Lispro 0 unit 05/31/21 16:54 Humalog SQ 06/30/21 16:53 UD PRN HYPERGLYCEMIA Levothyroxine Sodium 100 mcg 06/01/21 10:00 06/01/21 10:35 Synthroid 100 Mcg PO 07/01/21 09:59 100 mcg DAILY SARA Administration Metoprolol Tartrate 50 mg 06/01/21 22:00 06/01/21 21:30 Lopressor 50 Mg PO 07/01/21 09:59 50 mg BID SARA Administration Metoprolol Tartrate 25 mg 06/01/21 22:00 07/30/21 21:30 Lopressor 25mg Tab PO 07/01/21 21:59 25 mg BID SARA Administration Nicotine 21 mg 06/01/21 15:00 06/01/21 15:34 Nicoderm Cq 21 Mg TOP 07/01/21 14:59 21 mg Q24H SARA Administration Pantoprazole Sodium 40 mg 05/31/21 18:00 06/01/21 08:39 Protonix 40 Mg Iv IV 06/30/21 17:59 40 mg Q24H10 SARA Administration Simvastatin 20 mg 06/01/21 22:00 06/01/21 21:30 Zocor 20mg PO 07/01/21 21:59 20 mg HS SARA Administration Tamsulosin HCl 0.4 mg 06/01/21 10:00 06/01/21 10:35 Flomax 0.4 Mg PO 07/01/21 09:59 0.4 mg DAILY SARA Administration Tizanidine HCl 4 mg 06/01/21 10:45 06/01/21 10:41 Zanaflex 4 Mg PO 07/01/21 09:56 4 mg DAILY PRN PRN Administration MUSCLE SPASMS Discontinued Medications Generic Name Dose Route Start Last Admin Trade Name Freq PRN Reason Stop Dose Admin Albuterol/Ipratropium 3 ml 05/31/21 16:54 Duoneb 0.5-3 Mg/3 Ml Neb IH 06/30/21 16:53 Q4HPRN PRN SHORTNESS OF BREATH/WHEEZING Aspirin 324 mg 06/01/21 10:00 05/31/21 11:55 Ecotrin 81 Mg PO 07/01/21 09:59 324 mg DAILY SARA Administration Aspirin 325 mg 06/01/21 10:00 06/01/21 10:34 Ecotrin 325 Mg PO 07/01/21 09:59 325 mg QAM SARA Administration Aspirin 81 mg 06/01/21 19:52 06/01/21 20:10 Ecotrin 81 Mg PO 06/01/21 19:53 81 mg 1XONLY ONE Administration Gabapentin 800 mg 06/01/21 10:00 06/01/21 10:56 Neurontin 300 Mg PO 07/01/21 09:59 Not Given QID SARA Insulin Human Lispro 0 unit 06/01/21 08:57 Humalog SQ 07/01/21 08:56 UD PRN HYPERGLYCEMIA Metoprolol Tartrate 75 mg 06/01/21 10:00 06/01/21 10:35 Lopressor 50 Mg PO 07/01/21 09:59 75 mg BID SARA Administration Tizanidine HCl 4 mg 06/01/21 09:57 06/01/21 10:35 Zanaflex 4 Mg PO 07/01/21 09:56 4 mg DAILY PRN Administration MUSCLE SPASMS Intake & Output (Last 24 hours) 05/30/21 05/31/21 06/01/21 06/02/21 11:59 11:59 11:59 11:59 Intake Total 720 1240 Balance 720 1240 Weight 110 kg 109.3 kg Laboratory Results (Last 24 hours) 06/02/21 06/02/21 06/02/21 06:58 05:40 05:40 WBC 7.5 RBC 4.26 Hgb 13.3 Hct 41.2 L MCV 96.7 MCH 31.2 MCHC 32.3 RDW 12.9 Plt Count 191 MPV 10.4 Gran % 61.1 Eos # (Auto) 0.09 Absolute Lymphs (auto) 2.11 Absolute Monos (auto) 0.70 Lymphocytes % 28.2 Monocytes % 9.4 Eosinophils % 1.2 Basophils % 0.1 Absolute Granulocytes 4.56 Basophils # 0.01 Sodium 138 Potassium 4.1 Chloride 100 Carbon Dioxide 23 Anion Gap 18.7 H BUN 15 Creatinine 0.80 Estimated GFR > 60.0 Glucose 177 H POC Glucometer 130 H Calcium 9.6 Triglycerides Cholesterol LDL Cholesterol HDL Cholesterol Heart Disease Risk Ratio 06/01/21 06/01/21 06/01/21 20:59 16:27 11:27 WBC RBC Hgb Hct MCV MCH MCHC RDW Plt Count MPV Gran % Eos # (Auto) Absolute Lymphs (auto) Absolute Monos (auto) Lymphocytes % Monocytes % Eosinophils % Basophils % Absolute Granulocytes Basophils # Sodium Potassium Chloride Carbon Dioxide Anion Gap BUN Creatinine Estimated GFR Glucose POC Glucometer 197 H 200 H 132 H Calcium Triglycerides Cholesterol LDL Cholesterol HDL Cholesterol Heart Disease Risk Ratio 06/01/21 08:59 WBC RBC Hgb Hct MCV MCH MCHC RDW Plt Count MPV Gran % Eos # (Auto) Absolute Lymphs (auto) Absolute Monos (auto) Lymphocytes % Monocytes % Eosinophils % Basophils % Absolute Granulocytes Basophils # Sodium Potassium Chloride Carbon Dioxide Anion Gap BUN Creatinine Estimated GFR Glucose POC Glucometer Calcium Triglycerides 204 H Cholesterol 184 LDL Cholesterol 127 H HDL Cholesterol 20 L Heart Disease Risk Ratio 9.4 Orders (Last 24 hours) Category Date Time Status CAROTID BILATERAL [US] Routine Exams 06/01/21 15:[address] ANGIOGRAPHY NECK [CT] Urgent Exams 06/02/21 08:36 Ordered ECHO W/2D AND DOPPLER [US] Routine Exams 06/01/21 15:10 Taken MRI BRAIN W/O CONTRAST [MRI] Routine Exams 06/01/21 08:55 Completed BMP AM.LAB Lab 06/02/21 05:40 Completed CBC W DIFF AM.LAB Lab 06/02/21 05:40 Completed LIPID PROFILE Routine Lab 06/01/21 08:59 Completed POCT GLUCOSE Stat Lab 06/01/21 11:27 Completed POCT GLUCOSE Stat Lab 06/01/21 16:27 Completed POCT GLUCOSE Stat Lab 06/01/21 20:59 Completed POCT GLUCOSE Stat Lab 06/02/21 06:58 Completed Aspirin EC 325 mg [Ecotrin 325 MG] Med 06/01/21 10:00 Discontinued 325 mg PO QAM Aspirin EC 81 mg [Ecotrin 81 mg] Med 06/01/21 10:00 Discontinued 324 mg PO DAILY Aspirin EC 81 mg [Ecotrin 81 mg] Med 06/01/21 19:52 Discontinued 81 mg PO 1XONLY ONE Aspirin EC 81 mg [Ecotrin 81 mg] Med 06/02/21 10:00 Active 81 mg PO DAILY Clonidine HCl 0.1 mg [Catapres 0.1 MG] Med 06/01/21 10:00 Active 0.1 mg PO DAILY Clopidogrel Bisulfate 75 mg [PLAVIX 75 MG Tablet] Med 06/02/21 10:00 Active 75 mg PO DAILY Gabapentin 300 mg [Neurontin 300 mg] Med 06/01/21 10:00 Discontinued 800 mg PO QID Gabapentin 400 mg [Neurontin 400 MG] Med 06/01/21 10:45 Active 800 mg PO QID Hydrocodone/Acetaminophen [Hydrocodone-Acetamin 10-325 Med 06/01/21 09:57 Active mg] 1 tablet PO Q6HPRN PRN Insulin Lispro [Humalog] Med 06/01/21 08:57 Discontinued See Dose Instructions SQ UD PRN Levothyroxine Sodium 100 Mcg [Synthroid 100 Mcg] Med 06/01/21 10:00 Active 100 mcg PO DAILY Metoprolol Tartrate 25 mg [Lopressor 25MG Tab] Med 06/01/21 22:00 Active 25 mg PO BID Metoprolol Tartrate 50 mg [Lopressor 50 MG] Med 06/01/21 22:00 Active 50 mg PO BID Metoprolol Tartrate 50 mg [Lopressor 50 MG] Med 06/01/21 10:00 Discontinued 75 mg PO BID Nicotine 21 mg [Nicoderm CQ 21 MG] Med 06/01/21 15:00 Active 21 mg TOP Q24H Simvastatin 20Mg [Zocor 20Mg] Med 06/01/21 22:00 Active 20 mg PO HS Tamsulosin HCl 0.4 mg [Flomax 0.4 MG] Med 06/01/21 10:00 Active 0.4 mg PO DAILY Tizanidine HCl 4 mg [Zanaflex 4 MG] Med 06/01/21 09:57 Discontinued 4 mg PO DAILY PRN Tizanidine HCl 4 mg [Zanaflex 4 MG] Med 06/01/21 10:45 Active 4 mg PO DAILY PRN PRN OT Eval and Treat (MD Order) ROUTINE OT 06/01/21 08:57 Completed Patient Care Notes (Last 24 hours) 06/02/21 04:13 Nursing Note by Altagracia Martinez PRIMARY NURSE MADE AWARE OF PT BP. Initialized on 06/02/21 04:13 - END OF NOTE 06/02/21 00:00 (created 06/02/21 00:07) Nursing Note by Altagracia Martinez PRIMARY NURSE MADE AWARE OF INCREASED BP. Initialized on 06/02/21 00:07 - END OF NOTE 06/01/21 19:52 Nursing Note by Carla Lawrence Called Dr. Koo about Pt complaint of numbness on right side of his face. Order received for 81 ASA now. The rest of the NIHSS negative at this time. Initialized on 06/01/21 19:52 - END OF NOTE Code(s): I63.9 - CEREBRAL INFARCTION, UNSPECIFIED
[2021-06-02] MEDS: Catapres 0.1 MG PO SCH (09:36)
[2021-06-02] MEDS: PROTONIX 40 MG IV IV SCH (09:36)
[2021-06-02] MEDS: Flomax 0.4 MG PO SCH (09:36)
[2021-06-02] MEDS: Lopressor 50 MG PO SCH ×2 (09:37→21:14)
[2021-06-02] MEDS: Lopressor 25MG Tab PO SCH ×2 (09:37→21:14)
[2021-06-02] MEDS: PLAVIX 75 MG Tablet PO SCH (09:37)
[2021-06-02] MEDS: ECOTRIN 81 MG PO SCH (09:37)
[2021-06-02] MEDS: SYNTHROID 100 MCG PO SCH (09:37)
[2021-06-02] MEDS: Neurontin 400 MG PO SCH ×4 (09:38→21:15)
[2021-06-02] MEDS: Nicoderm CQ 21 MG TOP SCH (14:56)
[2021-06-02] MEDS ORDERED: HOLD METFORMIN PRODUCTS FOR 48 HOURS MC SCH (16:30)
--- NOTE | 2021-06-02 20:05 | XRAY ---
Indication: Thalamic stroke. Right-sided numbness. Conventional contrast enhanced CTA neck performed using 100 cc Isovue 370 contrast. Two-dimensional sagittal and coronal reformatted images obtained. Additional 3-dimensional reformatted images obtained using a separate workstation. Comparison: None Visualized aortic arch demonstrates very minimal arteriosclerotic calcifications without aneurysm/dissection. There is anatomic variant for bovine arch with common origin of the right brachiocephalic and left common carotid arteries. Examination of the right carotid circulation demonstrates widely patent common carotid artery. At the level of the bulb, there is minimal eccentric heterogeneous plaquing. A greater degree of mild heterogeneous plaquing extends into the origin of internal carotid artery producing 50-60% stenosis. Remaining internal and external carotid arteries are normal in CTA appearance. Examination of the left carotid circulation demonstrates widely patent common carotid artery. At the level of the bulb and origin internal carotid artery, there is mild eccentric heterogeneous plaquing producing less than 50% stenosis. Remaining internal and external carotid arteries are normal in CTA appearance. Vertebral arteries are bilaterally patent with the left slightly larger in caliber. Visualized soft tissues demonstrates subcentimeter cervical lymph nodes bilaterally. No pathologic lymphadenopathy. Parotid and submandibular glands are bilaterally symmetric. Thyroid gland absent or atrophic. Supra and infraglottic airway widely patent. Lung apices demonstrates bilateral dependent atelectasis. Patient is edentulous. Cervical spine intact with mild osteopenia and mild/moderate multilevel degenerative spondylosis. CTA head reported separate. Impression: 1. Minimal/mild arteriosclerotic plaquing bilaterally as detailed. There is approximately 50-60 % stenosis on the right and less than 50% stenosis on the left. 2. Normal CTA vertebral arteries. 3. Absent/atrophic thyroid gland and chronic bony findings Common: Preliminary interpretation made by [facility]. No critical discrepancy.
--- NOTE | 2021-06-02 20:09 | XRAY ---
Indication: Thalamic stroke. Right-sided numbness. Conventional contrast enhanced CTA head performed using 100 cc Isovue 370 contrast. Two-dimensional sagittal and coronal reformatted images obtained. Additional 3-dimensional reformatted images obtained using a separate workstation. Comparison: None Distal internal carotid arteries are bilaterally symmetric. Minimal arteriosclerotic calcifications of the parasellar internal carotid arteries bilaterally without critical stenosis, obstruction, or AV malformation. Normal carotid terminus with normal branching A1 and M1 segments. More distal anterior cerebral and middle cerebral arteries are normal in CTA appearance bilaterally. Posterior circulation demonstrates normal CTA appearance to the basilar artery with normal branching posterior cerebral, superior cerebellar, and anterior inferior cerebellar arteries bilaterally. Venous drainage/sinuses are unremarkable. There is no abnormal enhancing intra or extra-axial mass. Impression: Minimal arteriosclerotic calcifications of parasellar internal carotid arteries without critical stenosis/obstruction. Remaining CTA head with contrast exam is negative. Comment: Preliminary interpretation made by [facility]. No critical discrepancy.
[2021-06-02] MEDS: ZOCOR 20MG PO SCH (21:15)
[2021-06-03] MEDS: Flomax 0.4 MG PO SCH (09:23)
[2021-06-03] MEDS: Neurontin 400 MG PO SCH (09:23)
[2021-06-03] MEDS: SYNTHROID 100 MCG PO SCH (09:23)
[2021-06-03] MEDS: ECOTRIN 81 MG PO SCH (09:23)
[2021-06-03] MEDS: Catapres 0.1 MG PO SCH (09:24)
[2021-06-03] MEDS: Lopressor 50 MG PO SCH (09:24)
[2021-06-03] MEDS: Lopressor 25MG Tab PO SCH (09:24)
[2021-06-03] MEDS: PLAVIX 75 MG Tablet PO SCH (09:24)
[2021-06-03] MEDS: PROTONIX 40 MG IV IV SCH (09:24)
[2021-06-03 11:50] VITALS: BP 161/91; PULSE 73; O2SAT 96
== END 2021-06-03 13:00 | disposition home or self-care (01) ==
LOC: ED 09:52 → MED SURG 16:55
PROVIDERS: ADMIT Family Medicine; ATTEND Family Medicine
DX: I63.9 Cerebral infarction, unspecified (principal); I10 Essential (primary) hypertension; E11.9 Type 2 diabetes mellitus without complications; E03.9 Hypothyroidism, unspecified; E78.5 Hyperlipidemia, unspecified; Z79.899 Other long term (current) drug therapy; Z20.828 Contact with and (suspected) exposure to other viral communicable diseases
CPT/HCPCS: 36000; 36415; 70450; 70496; 70498; 70551; 71045; 80048; 80053; 80061; 81001; 82947; 83036; 83721; 83880; 84484; 85025; 85610; 85730; 93005; 93041; 93268; 93306; 93880; 97165; 99285; 99291; G0378; Q3014; U0003; J1817; A9270-GY

== ENCOUNTER 2022-06-14 06:13 | Day surgery (SDC) | payer MEDICARE ==
[~2022-06-14 06:13] MED LIST: XYLOCAINE 1% HCL 20 ML MDV ONE
[2022-06-14] MEDS ORDERED: Marcaine Mpf 0.5% Vial 30 Ml IJ ONE (06:14)
[2022-06-14] MEDS ORDERED: CEFAZOLIN 2 GM-D5W BAG** 2 GM/50 ML ML IV SCH (06:30)
[2022-06-14] MEDS ORDERED: Lactated Ringers 1,000 ML IV SCH (06:30)
[2022-06-14] MEDS ORDERED: DIPRIVAN 200 MG/20 ML IV ONE (06:48)
[2022-06-14] MEDS ORDERED: Zemuron 100 MG/10 ML ONE ×2 (06:48→10:08)
[2022-06-14] MEDS ORDERED: Versed 2 MG/2 ML Injection ONE (06:48)
[2022-06-14 07:44] LABS: ALBUMIN 3.7 g/dL (3.5-5.0); ANION GAP 13.1 MEQ/L (5-15); BILIRUBIN,TOTAL 0.5 mg/dL (0.2-1.3); Calcium 9.1 mg/dL (8.4-10.2); Creatinine 1 1.37 mg/dL (0.66-1.25); EST GLOMERULAR FILTRATION RATE 54.8 ML/MIN; Potassium 4.7 mmol/L (3.5-5.1); Total Protein 7.5 g/dL (6.3-8.2)
[2022-06-14] MEDS ORDERED: PHENYLEPHRINE HCL ONE (10:02)
[2022-06-14] MEDS ORDERED: MORPHINE SULFATE 10 MG/ML ONE (13:27)
[2022-06-14] MEDS ORDERED: BRIDION 200MG/2ML IV ONE (13:29)
--- NOTE | 2022-06-14 14:01 | XRAY ---
Indication: Right foot Charcot reconstruction. Intraoperative fluoroscopy provided for 4 minutes 20 seconds. 35 digital spot images submitted for interpretation ultimately demonstrates mid to hindfoot fusion surgery with numerous tarsal/1st metatarsal/talus/calcaneal hardware in situ. Correlate with intraoperative findings/report.
[2022-06-14 14:13] LABS: WBC 26-50 /HPF (0-5)
[2022-06-14 14:16] LABS: Bacteria FEW /HPF (NEGATIVE)
[2022-06-14 14:53] LABS: Appearance CLOUDY (CLEAR); Bilirubin NEGATIVE (NEGATIVE); Glucose NEGATIVE (NEGATIVE); Ketones NEGATIVE (NEGATIVE); Nitrite POSITIVE (NEGATIVE); Protein,Urine Dip NEGATIVE (Negative); RBC SMALL Ery/ul (0-5); Specific Gravity 1.015 (1.005-1.025); Urobilinogen 0.2 mg/dL (0-1)
[2022-06-14 14:54] LABS: Dipstick done @ ? MAIN LAB
[2022-06-14 15:12] VITALS: BP 152/81; PULSE 59; O2SAT 94
--- NOTE | 2022-06-17 13:52 | OP ---
SURGERY DATE/TIME: 06/14/2022 0919 PREOPERATIVE DIAGNOSES: 1) Charcot osteoarthropathy right foot. 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 3) Deformity of right foot. 4) Osteoarthritis mid foot. 5) Gastrocnemius equinus. POSTOPERATIVE DIAGNOSES: 1) Charcot osteoarthropathy right foot. 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 3) Deformity of right foot. 4) Osteoarthritis mid foot. 5) Gastrocnemius equinus. PROCEDURES: 1) Gastrocnemius resection. 2) Subtalar joint arthrodesis. 3) Calcaneocuboid distraction arthrodesis. 4) Medial column fusion. SURGEON: Marvin Garibay DPM. TITLE CLERK: None. ANESTHESIA: General. HEMOSTASIS: Thigh tourniquet set 350 mm of Mercury for 120 total tourniquet minutes. ESTIMATED BLOOD LOSS: Approximately 50 cc. MATERIALS: Henry Joust System for beaming along with Allograft B94 four-hole Peanut plate, 2-0 Vicryl and 3-0 Nylon. Bone marrow aspirate harvest. INJECTABLES: 30 cc of 1:1 mixture of 1% lidocaine plain and 0.5% bupivacaine plain injected in an ankle block-type fashion. INDICATION FOR SURGERY: Alfredo is a very well-known patient of mine who has been seen in the past for Charcot neuroarthropathy and worsening of the deformity of his foot. At the time the patient presented he was relatively stable and somewhat pain-free, not as consistently. At that time the decision was made to treat conservatively and see if in the fragmentation and consolidation phase the pain went away. The patient subsequently did have a significant amount of pain disappear. However, his deformity continued to progress and get worse as time went on. X-rays were taken in January and once again in April demonstrating a significant increase in deformity as well as furthering of the fragmentation state of the patients arthropathy. At this time the patient does have a significant amount of pain which is more than he was experiencing before and he has failed conservative management for this issue. The patient at this time wishes to proceed understanding that Charcot neuroosteoarthropathy is potentially a limb threatening condition and has been made aware that this is an attempt at limb salvage. The patient understands all risks, complications benefits of the procedure including but not limited to delayed wound healing, nonwound healing, possibility of delayed bone healing, nonbone healing, possibility of hardware failure, possibility of need for surgical intervention at a later date. The patient understands all of these risks and more and wishes to proceed with the procedure at this time. DESCRIPTION OF PROCEDURE AND FINDINGS: The patient was brought into the OR and placed on the OR table in the supine position. At this time the patient had a well-padded thigh tourniquet applied to the patient's right lower extremity and the tourniquet was set to 350 mm of Mercury. At this time the right lower extremity was prepped and draped in the typical sterile fashion and lowered onto the surgical field. At this time a 10 blade was utilized to make a linear incision at the posterior medial aspect of the calf of the right lower extremity at the palpable dell of the gastrocnemius muscle belly and the tendon. This incision was approximately 4 cm in length and was carried out utilizing a 10 blade. Blunt dissection was made down to the level of the crural fascia. The crural fascia was then incised utilizing a 15 blade. Following this, Army-Higbee were utilized to retract the site and the gastrocnemius aponeurosis was identified. This was retracted utilizing a 10 blade at the medial aspect obtaining direct visualization of the sural nerve at the lateral aspect of the surgical incision. The remaining lateral portion of the gastrocnemius aponeurosis was resected. Following this, copious amounts of sterile saline were utilized to flush the surgical site. A 2-0 Vicryl was utilized to coapt the fascial and the subcutaneous layer in a simple interrupted buried-type fashion and then 3-0 Nylon was utilized to close the skin utilizing a horizontal mattress-type fashion suture. Following this attention was directed to the lateral aspect of the calcaneus where a stab incision was made under fluoroscopic guidance to the lateral wall of the calcaneus. Bone marrow aspirate was harvested from this site approximately 0.5 cc was used later in the calcaneocuboid distraction arthrodesis. At this time the Esmarch was utilized to exsanguinate the leg and the tourniquet was set to 350 mm of Mercury. At this time linear incision was made from the distal tip of the fibula to the base of the fourth metatarsal making an incision down to the level of the subtalar joint being careful not to damage any neurovascular structures along the way. The subtalar joint was prepped utilizing a combination of curette, osteotomes and rongeurs until the subchondral plate was exposed. Following this the calcaneocuboid joint was then exposed, reflected and cleared off of the cartilage from this joint utilizing a combination of curettes, osteotomes and rongeurs. Following this attention was directed to the medial aspect of the foot where a majority of the deformity lay in abduction, a linear incision was made at the dorsal medial aspect extending from the talonavicular joint to the first tarsometatarsal joint. All of the joints were prepped in a similar fashion utilizing rongeurs, curettes and osteotomes until the subchondral plate was identified. All of these sites were flushed with copious amounts of sterile saline to remove the cartilage. Then every joint just named was then drilled utilizing 2.0 mm drill bit and fenestrated utilizing an osteotome. Following this Allograft was placed between the joint and temporary fixation was made at the subtalar joint being careful not to violate the tibiotalar joint and adding compression through the posterior facet. Once the temporary fixation was made the screws were placed in this site. Following this, an 8 mm calcaneocuboid graft was utilized to perform distraction arthrodesis and this was secured utilizing a 5.5 Joust introduced from in between the third and fourth metatarsal leading from the cuboid to the calcaneus. This was checked under fluoroscopic guidance and deemed to be adequate on multiple views. A four-hole plate was then placed at the fusion site. Following this attention was directed to the medial column where a K-wire was introduced from first metatarsal head through the tarsometatarsal joint, navicular cuneiform joints and talonavicular joint in preparation for the beaming for the medial column. A 145 mm Joust was introduced from this site and into the body of the talus. Following this, the deficits were packed with the remaining graft. All sites were superficially flush and closed utilizing 2-0 Vicryl for deep buried closure and 3-0 Nylon for closure of the skin utilizing horizontal mattress-type fashion incisions for the linear incision and simple interrupted for the poke hole. At this time injection of a 1:1 mixture of 1% lidocaine plain and 0.5% bupivacaine plain was injected in an ankle block-type fashion. A dressing consisting of Betadine, Adaptic, 4x4, Kerlix and a well-padded posterior splint with Sugar-Tong was applied to the patient's right lower extremity. The patient was then reversed from anesthesia and returned to the postoperative anesthesia care unit with vital signs stable and vascular status intact. The patient handled the anesthesia as well as the procedure without significant complication. Postoperative orders as indicated in the patient's discharge chart.
--- NOTE | 2022-06-19 11:16 | XRAY ---
4 minutes and 20 seconds of fluoroscopy was used in surgery for a right foot Charcot reconstruction.
== END 2022-06-14 15:30 | disposition home or self-care (01) ==
LOC: SDC 06:13
PROVIDERS: ATTEND Podiatrist Foot & Ankle Surgery
DX: M14.671 Charcot's joint, right ankle and foot (principal); E11.42 Type 2 diabetes mellitus with diabetic polyneuropathy; M21.961 Unspecified acquired deformity of right lower leg; M19.071 Primary osteoarthritis, right ankle and foot; M24.571 Contracture, right ankle
CPT/HCPCS: 27687; 28715; 28730; 36415; 73630; 76000; 80053; 81001; 82947; 87077; 87086; 87186; 93005; C1713; J0690; J2250; J2270; J2370; J2704

== ENCOUNTER 2022-07-05 23:42 | Observation (INO) | payer MEDICARE ==
[2022-07-06] MEDS ORDERED: Keppra 500 MG/5 ML*** 1,000 MG in D5w 100ML Mini Bag 100 ML 100 ML IV ONE (00:02)
[2022-07-06] MEDS ORDERED: Zofran 4 MG/2 ML VIAL IV ONE (00:02)
[2022-07-06] MEDS ORDERED: Sodium Chloride 0.9% 1000 ML 1,000 ML IV STA (00:02)
--- NOTE | 2022-07-06 00:09 | ERPHSYRPT ---
- History of Present Illness Time Seen by Provider: 07/05/22 23:54 Source: patient, family Exam Limitations: no limitations Physician History: 67-year-old male with history of hypertension, hyperlipidemia, diabetes mellitus, GERD, obstructive sleep apnea, arthritis, neuropathy, history of seizures for quite some time not on any medication presented in the ER with 3 seizures today each lasting for almost a minute with generalized tonic-clonic with postictal period no fall or trauma to the head. Patient does have issue with ambulation at baseline which is lately getting more worse because of right foot surgery recently with cast on. Denies any chest pain palpitations or shortness of breath. Reports mild nausea but no abdominal pain. Generalized weakness fatigue and tiredness. For headache dizziness or lightheadedness. No visual disturbance. No new focal numbness or weakness. Does have history of stroke with some left-sided residual weakness. Timing/Duration: today, intermittent, worse Severity: moderate Character of Deficits: none Deficits: no difficulties Baseline/Normal Cognition: alert oriented x 3 Current Cognition: alert oriented x 3 Baseline Gait: walks w/o assistance Associated Symptoms: fatigue, nausea, numbness/tingling in legs/feet, No fever, No loss of consciousness, No vomiting, No ringing in ears, No seizures, No slurred speech, No vision changes, No chest pain, No headache Allergies/Adverse Reactions: [id number] Reductase Inhibitor Allergy (Intermediate, Verified 07/06/22 00:05) Blisters Tetracyclines Allergy (Verified 07/06/22 00:05) Home Medications: Gabapentin [Neurontin] 800 mg PO QID 05/15/17 [History] Metformin HCl 1,000 mg PO BID 05/15/17 [History] Metoprolol Tartrate 50 mg [Lopressor 50 MG] 50 mg PO BID 05/15/17 [History] Tamsulosin HCl 0.4 mg [Flomax 0.4 MG] 0.4 mg PO DAILY 11/17/19 [History] glipiZIDE [Glipizide] 5 mg PO BID 05/31/21 [History] Cholecalciferol (Vitamin D3) [Vitamin D] 10,000 iu PO DAILY 06/06/22 [History] Duloxetine HCl 30 mg [Cymbalta 30 MG Capsule] 60 mg PO DAILY 06/06/22 [History] Omeprazole 40 mg PO DAILY 06/06/22 [History] Ondansetron [Ondansetron Odt ] 4 mg PO Q4-6HPRN PRN 06/06/22 [History] Levothyroxine Sodium [Levothyroxine] 300 mcg PO DAILY 06/14/22 [History] Aspirin EC 81 mg [Ecotrin 81 mg] 325 mg PO DAILY 07/06/22 [History] Hydrocodone/Acetaminophen [Hydrocodone-Acetamin 5-325 mg] 1 tab PO Q6H PRN PRN 07/06/22 [History] Hx Tetanus, Diphtheria Vaccination/Date Given: No Hx Influenza Vaccination/Date Given: Yes Hx Pneumococcal Vaccination/Date Given: No Travel Risk - Vaccine Status Have you recieved a Covid-19 vaccination: Yes 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[employer] - Vaccination Dates Date of 2cond Vaccination (if applicable): 01/2021 - Review of Systems Constitutional: Fatigue, Weakness Eyes: No Symptoms Ears, Nose, & Throat: No Symptoms Respiratory: No Symptoms Cardiac: No Symptoms Abdominal/Gastrointestinal: Nausea Genitourinary Symptoms: No Symptoms Musculoskeletal: Arthralgias Skin: No Symptoms Neurological: Sensory Changes Psychological: No Symptoms Hematologic/Lymphatic: No Symptoms Immunological/Allergic: No Symptoms - Past Medical History Pertinent Past Medical History: Yes Neurological History: Peripheral Neuropathy, Stroke, Other ENT History: Cataracts Cardiac History: High Cholesterol, Hypertension Respiratory History: Sleep Apnea, Other Endocrine Medical History: Diabetes Type II, Other Musculoskeletal History: Osteoarthritis GI Medical History: No Pertinent History, GERD, Other History: No Pertinent History Psycho-Social History: No Pertinent History Male Reproductive Disorders: No Pertinent History Other Medical History: Hx of CVA 2020. Neuropathy upper and lowerr extremeties, fatty liver. Former smoker, quit 10 days ago. - Past Surgical History Past Surgical History: Yes Neuro Surgical History: No Pertinent History Cardiac: No Pertinent History Respiratory: No Pertinent History Gastrointestinal: No Pertinent History Genitourinary: No Pertinent History Musculoskeletal: Other Male Surgical History: No Pertinent History Other Surgical History: back surgery- spinal fusion, 2 rods - Social History Smoking Status: Former smoker How long have you smoked: 45 Exposure to second hand smoke: No Drug Use: none Patient Lives Alone: No - Nursing Vital Signs Nursing Vital Signs: Initial Vital Signs Temperature 97.1 F 07/05/22 23:49 Pulse Rate 75 07/05/22 23:49 Respiratory Rate 20 07/05/22 23:49 Blood Pressure 130/69 07/05/22 23:49 O2 Sat by Pulse Oximetry 99 07/05/22 23:49 Pain Scale Pain Intensity 9 - Samir Coma Scale Best Eye Response (Samir): (4) open spontaneously Best Verbal Response (Samir): (5) oriented Best Motor Response (Samir): (6) obeys commands [place] Total: 15 - Physical Exam General Appearance: no apparent distress, alert Eye Exam: bilateral eye: normal inspection, PERRL, EOMI Ears, Nose, Throat Exam: normal ENT inspection, TMs normal, pharynx normal, moist mucous membranes Neck Exam: normal inspection, non-tender, supple, full range of motion Respiratory: normal breath sounds, lungs clear Cardiovascular: regular rate/rhythm, normal heart sounds Gastrointestinal: soft, normal bowel sounds, No tenderness Back Exam: normal inspection, No CVA tenderness Extremity Exam: normal inspection, other (Cast applied right lower leg/foot) Mental Status: alert, oriented x 3, 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 Exam: normal hearing, normal speech, PERRL Coordination/Gait: normal finger to nose, normal cerebellar function Motor/Sensory: no motor deficit, no sensory deficit DTR: bicep (R): 2+, bicep (L): 2+, knee (R): 2+, knee (L): 2+ Skin Exam: normal color SpO2 Interpretation: normal SpO2: 99 O2 Delivery: Room Air Ordered Tests: Active Orders 24 hr Category Date Time Status Alarm Security Or Surveillance Monitor STAT Care 07/06/22 00:02 Active IV Insertion STAT Care 07/06/22 00:02 Active POCT Glucose Check STAT Care 07/06/22 00:02 Active CHEST 1 VIEW (PORTABLE) Stat Exams 07/06/22 00:02 Taken CBC W DIFF Stat Lab 07/06/22 00:20 Results CMP Stat Lab 07/06/22 00:20 Completed FECAL OCCULT BLOOD - SCREENING Stat Lab 07/06/22 00:48 Ordered Lactic Acid Stat Lab 07/06/22 00:21 Completed Manual Differential NC Stat Lab 07/06/22 00:20 Results PROTIME WITH INR Stat Lab 07/06/22 00:48 Ordered PTT Stat Lab 07/06/22 00:48 Ordered Pathologist Review Stat Lab 07/06/22 00:20 Results UA W/RFX CULTURE Stat Lab 07/06/22 Ordered Medication Summary Generic Name Dose Route Start Last Admin Trade Name Freq PRN Reason Stop Dose Admin Sodium Chloride 1,000 mls @ 999 mls/hr 07/06/22 00:02 07/06/22 00:26 Sodium Chloride 0.9% 1000 Ml IV 07/06/22 01:02 999 mls/hr .Q1H1M STA Administration Pantoprazole Sodium 80 mg/ 500 mls @ 50 mls/hr 07/06/22 01:00 Sodium Chloride IV 08/05/22 00:59 .Q10H SARA Discontinued Medications Generic Name Dose Route Start Last Admin Trade Name Freq PRN Reason Stop Dose Admin Levetiracetam 1,000 mg/ 110 mls @ 400 mls/hr 07/06/22 00:02 07/06/22 00:25 Dextrose IV 07/06/22 00:18 400 mls/hr STAT ONE Administration Dextrose Confirm 07/06/22 00:24 D5w 100ml Mini Bag 100 Ml Administered 07/06/22 00:25 Dose 100 mls @ ud IV .STK-MED ONE Sodium Chloride Confirm 07/06/22 00:28 Sodium Chloride 0.9% 1000 Ml Administered 07/06/22 00:29 Dose 1,000 mls @ ud .ROUTE .STK-MED ONE Levetiracetam Confirm 07/06/22 00:24 Levetiracetam 500 Mg/5 Ml Vial Administered 07/06/22 00:25 Dose 500 mg .ROUTE .STK-MED ONE Levetiracetam Confirm 07/06/22 00:28 Levetiracetam 500 Mg/5 Ml Vial Administered 07/06/22 00:29 Dose 500 mg .ROUTE .STK-MED ONE Ondansetron HCl 4 mg 07/06/22 00:02 07/06/22 00:26 Ondansetron Hcl 4 Mg/2 Ml Vial IV 07/06/22 00:03 4 mg STAT ONE Administration Ondansetron HCl Confirm 07/06/22 00:22 Ondansetron Hcl 4 Mg/2 Ml Vial Administered 07/06/22 00:23 Dose 4 mg .ROUTE .STK-MED ONE Pantoprazole Sodium 40 mg 07/06/22 00:48 Pantoprazole 40 Mg Vial IV 07/06/22 00:49 STAT ONE Lab/Rad Data: Laboratory Result Diagrams 07/06/22 00:20 07/06/22 00:20 Laboratory Results 07/06/22 07/06/22 07/06/22 Range/Units 00:21 00:20 00:20 WBC 6.6 (4.0-10.5) x10^3/uL RBC 2.84 L (4.1-5.6) x10^6/uL Hgb 7.0 L (12.5-18.0) g/dL Hct 24.3 L (42-50) % MCV 85.6 (78-100) fL MCH 24.6 L (26-32) pg MCHC 28.8 L (32-36) g/dL RDW 15.8 H (11.5-14.0) % Plt Count 214 (150-450) x10^3/uL MPV 10.1 (7.5-11.0) fL Smear Path Review Pending Sodium 134 L (137-145) mmol/L Potassium 5.2 H (3.5-5.1) mmol/L Chloride 103 (98-107) mmol/L Carbon Dioxide 19 L (22-30) mmol/L Anion Gap 17.0 H (5-15) MEQ/L BUN 18 (9-20) mg/dL Creatinine 1.74 H (0.66-1.25) mg/dL Estimated GFR 41.6 ML/MIN Glucose 130 H (74-106) mg/dL Lactic Acid 3.8 H (0.4-2.0) Calcium 9.3 (8.4-10.2) mg/dL Total Bilirubin 0.60 (0.2-1.3) mg/dL AST 30 (17-59) U/L ALT 20 (0-50) U/L Alkaline Phosphatase 116 (38-126) U/L Serum Total Protein 8.5 H (6.3-8.2) g/dL Albumin 4.4 (3.5-5.0) g/dL - Progress Progress: improved, re-examined Progress Note: 07/06/22 00:53 67-year-old is evaluated for recurrent seizure today. Patient has nonfocal neuro exam throughout stay in the ER. He is given a dose of Keppra. Do not think needs CT head. Baseline work-up showed drop in hemoglobin from 8.7-7.0 today. Patient does have a history of epigastric discomfort, GERD and started on Protonix drip. Discussed with patient about risk and benefits of transfusion and he/ agreed with going ahead with transfusions. Chest x-ray negative for any acute cardiopulmonary findings, reviewed by me. Official report is pending also has AYESHA with a creatinine of 1.7. Has a lactate of 3.8 but I believe it is secondary to seizure, given fluids. Discussed with , reviewed history, work-up and patient is excepted for admission. 07/06/22 00:54 Counseled pt/family regarding: lab results, diagnosis, rad results - Departure Clinical Impression: Recurrent seizures, Generalized weakness, Anemia, AYESHA (acute kidney injury), Elevated lactic acid level Condition: Stable Critical Care Time: No
[2022-07-06] MEDS ORDERED: Zofran 4 MG/2 ML VIAL ONE (00:22)
[2022-07-06] MEDS ORDERED: Keppra 500 MG/5 ML ONE ×2 (00:24→00:28)
[2022-07-06] MEDS ORDERED: D5w 100ML Mini Bag 100 ML 100 ML IV ONE (00:24)
[2022-07-06] MEDS ORDERED: Sodium Chloride 0.9% 1000 ML 1,000 ML ONE (00:28)
[2022-07-06 00:34] LABS: Hematocrit 24.3 % (42-50); Mean Cell Volume 85.6 fL (78-100); Mean Corpuscular Hemoglobin 24.6 pg (26-32); Mean Corpuscular Hgb Concent. 28.8 g/dL (32-36); Mean Platelet Volume 10.1 fL (7.5-11.0); Platelet Count 214 x10^3/uL (150-450); Red Blood Count 2.84 x10^6/uL (4.1-5.6); Red Cell Distribution Width 15.8 % (11.5-14.0); White Blood Count 6.6 x10^3/uL (4.0-10.5)
[2022-07-06 00:39] LABS: ALBUMIN 4.4 g/dL (3.5-5.0); BILIRUBIN,TOTAL 0.6 mg/dL (0.2-1.3); Calcium 9.3 mg/dL (8.4-10.2); Creatinine 1 1.74 mg/dL (0.66-1.25); EST GLOMERULAR FILTRATION RATE 41.6 ML/MIN; Potassium 5.2 mmol/L (3.5-5.1); Total Protein 8.5 g/dL (6.3-8.2)
[2022-07-06] MEDS ORDERED: PROTONIX 40 MG IV IV ONE ×2 (00:48→01:24)
[2022-07-06 01:07] LABS: INR 1.14 (0.8-3.0); PROTIME 11.9 SECONDS (9.4-12.5)
[2022-07-06] MEDS ORDERED: Sodium Chloride 0.9% 500 ML 500 ML IV ONE (01:25)
[2022-07-06] MEDS: PROTONIX 40 MG IV*** 80 MG in Sodium Chloride 0.9% 500 ML 500 ML IV SCH ×3 (01:26→20:50)
[2022-07-06 01:50] LABS: INFLUENZA A NEGATIVE (NEGATIVE); INFLUENZA B NEGATIVE (NEGATIVE); RESPIRATORY SYNCTIAL VIRUS NEGATIVE (Negative); SARS-CoV-2 Xpert Express NEGATIVE (NEGATIVE)
[2022-07-06] MEDS ORDERED: DUONEB 0.5-3 MG/3 ml Neb IH PRN (02:14)
[2022-07-06] MEDS ORDERED: HUMALOG SQ PRN (02:14)
[2022-07-06] MEDS ORDERED: TYLENOL 325 MG PO PRN (02:14)
[2022-07-06] MEDS ORDERED: Zofran 4 MG/2 ML VIAL IV PRN (02:14)
[2022-07-06 02:52] LABS: ABO TYPING A; Antibody Screen NEGATIVE (NEGATIVE); RH TYPING POSITIVE
[2022-07-06 02:55] LABS: CROSS MATCH (PRBC) COMPATIBLE (COMPATIBLE)
[2022-07-06] MEDS: Sodium Chloride 0.9% 1000 ML 1,000 ML IV SCH ×3 (03:22→16:24)
[2022-07-06 03:27] LABS: Eosinophil 4 % (0.00-3.0); Hypochromia 1+; Lymphocytes 35 % (24-44); Monocyte 6 % (0.0-12.0); Platelet Estimate NORMAL (NORMAL); Polychromasia 1+; Total Cells Counted 100
[2022-07-06 03:28] LABS: Appearance CLEAR (CLEAR); Epithelial Cells RARE /HPF (FEW); Mucus SLIGHT /HPF (NEGATIVE); WBC 0-2 /HPF (0-5)
[2022-07-06 03:29] LABS: Bilirubin NEGATIVE (NEGATIVE); Dipstick done @ ? MAIN LAB; Glucose NEGATIVE (NEGATIVE); Ketones NEGATIVE (NEGATIVE); Nitrite NEGATIVE (NEGATIVE); Ph 5.5 (5-6); Protein,Urine Dip NEGATIVE (Negative); RBC TRACE-INTACT Ery/ul (0-5); Specific Gravity 1.015 (1.005-1.025); Urine Cultured Indicated? NO; Urobilinogen 0.2 mg/dL (0-1)
--- NOTE | 2022-07-06 06:28 | XRAY ---
Indication: Seizure. Comparison: May 31, 2021 Portable chest is now clear. Heart not enlarged. Bony thorax intact again with mild degenerative changes. No new/acute findings.
[2022-07-06] MEDS: MORPHINE SULFATE 2 MG INJ IV PRN ×3 (07:15→18:06)
[2022-07-06 09:53] LABS: Absolute Neutrophil Ct (ANC) 3.73 x10^3/uL (1.4-6.9); Basophil (Absolute #) 0.02 x10^3/uL (0-0.4); Eosinophil % 1.8 % (0.00-5.0); Eosinophil (Absolute #) 0.11 x10^3/uL (0-0.5); Hematocrit 29.9 % (42-50); Hemoglobin 9.1 g/dL (12.5-18.0); Lymphocyte (Absolute #) 1.79 x10^3/uL (1.0-4.6); Lymphocytes % 29.4 % (24.0-44.0); Mean Cell Volume 86.2 fL (78-100); Mean Corpuscular Hemoglobin 26.2 pg (26-32); Mean Corpuscular Hgb Concent. 30.4 g/dL (32-36); Mean Platelet Volume 9.1 fL (7.5-11.0); Monocyte (Absolute #) 0.41 x10^3/uL (0.0-1.3); Monocytes % 6.7 % (0.0-12.0); Neutrophil % 61.5 % (36.0-66.0); Platelet Count 180 x10^3/uL (150-450); Red Blood Count 3.47 x10^6/uL (4.1-5.6); Red Cell Distribution Width 15.5 % (11.5-14.0); White Blood Count 6.1 x10^3/uL (4.0-10.5)
[2022-07-06 11:06] LABS: ALBUMIN 4.3 g/dL (3.5-5.0); ANION GAP 16.7 MEQ/L (5-15); BILIRUBIN,TOTAL 1.1 mg/dL (0.2-1.3); Creatinine 1 1.51 mg/dL (0.66-1.25); EST GLOMERULAR FILTRATION RATE 48.9 ML/MIN; Total Protein 8.3 g/dL (6.3-8.2)
[2022-07-06] MEDS ORDERED: Zanaflex 4 MG PO PRN (12:08)
[2022-07-06] MEDS ORDERED: ZOFRAN ODT 4 MG PO PRN (12:08)
[2022-07-06] MEDS ORDERED: NORCO 5/325 MG PO PRN (12:08)
[2022-07-06] MEDS ORDERED: Flomax 0.4 MG PO SCH (12:15)
[2022-07-06] MEDS ORDERED: SYNTHROID 100 MCG PO SCH (12:30)
[2022-07-06] MEDS ORDERED: SYNTHROID 125 MCG PO SCH (12:30)
[2022-07-06] MEDS: Neurontin PO SCH ×3 (12:52→20:51)
[2022-07-06] MEDS: Glucotrol 5 MG PO SCH ×2 (12:52→20:51)
[2022-07-06] MEDS: Lopressor 50 MG PO SCH ×2 (12:52→20:50)
[2022-07-06] MEDS: Cymbalta 30 MG Capsule PO SCH ×2 (12:52→20:51)
[2022-07-06] MEDS ORDERED: NEURONTIN PO SCH (13:00)
--- NOTE | 2022-07-06 13:32 | PCM.HP ---
History of Present Illness - Chief Complaint Chief Complaint: seizure History of Present Illness: is a 67 year old male.with history of hypertension, hyperlipidemia, diabetes mellitus, GERD, obstructive sleep apnea, arthritis, neuropathy, history of seizures for quite some time not on any medication presented in the ER with 3 seizures today each lasting for almost a minute with generalized tonic-clonic with postictal period no fall or trauma to the head. Patient does have issue with ambulation at baseline which is lately getting more worse because of right foot surgery recently with cast on. Denies any chest pain palpitations or shortness of breath. Reports mild nausea but no abdominal pain. Generalized weakness fatigue and tiredness. For headache dizziness or lightheadedness. No visual disturbance. No new focal numbness or weakness. Does have history of stroke with some left-sided residual weakness. Timing/Duration: today, intermittent, worse Severity: moderate Character of Deficits: none Deficits: no difficulties Baseline/Normal Cognition: alert oriented x 3 Current Cognition: alert oriented x 3 Baseline Gait: walks w/o assistance Associated Symptoms: fatigue, nausea, numbness/tingling in legs/feet, No fever, No loss of consciousness, No vomiting, No ringing in ears, No seizures, No slurred speech, No vision changes, No chest pain, No headache - Review of Systems Constitutional: Weakness, No Fever, No Chills, No Fatigue Eyes: No Symptoms Ears, Nose, & Throat: No Symptoms Respiratory: No Cough, No Short Of Breath Cardiac: No Chest Pain, No Edema, No Syncope Abdominal/Gastrointestinal: No Abdominal Pain, No Nausea, No Vomiting, No Diarrhea Genitourinary Symptoms: No Dysuria Musculoskeletal: No Back Pain, No Neck Pain Skin: No Rash Neurological: Focal Weakness, Lethargy, Seizure, No Dizziness, No Sensory Changes Psychological: No Symptoms Endocrine: No Symptoms Hematologic/Lymphatic: No Symptoms Immunological/Allergic: No Symptoms Medications & Allergies Home Medications: Home Medication List Gabapentin [Neurontin] 800 mg PO QID 05/15/17 [History Confirmed 07/06/22] Metformin HCl 1,000 mg PO BID 05/15/17 [History Confirmed 07/06/22] Metoprolol Tartrate 50 mg [Lopressor 50 MG] 50 mg PO BID 05/15/17 [History Confirmed 07/06/22] Tamsulosin HCl 0.4 mg [Flomax 0.4 MG] 0.4 mg PO DAILY 11/17/19 [History Confirmed 07/06/22] glipiZIDE [Glipizide] 5 mg PO BID 05/31/21 [History Confirmed 07/06/22] Cholecalciferol (Vitamin D3) [Vitamin D] 10,000 iu PO DAILY 06/06/22 [History Confirmed 07/06/22] Duloxetine HCl 30 mg [Cymbalta 30 MG Capsule] 60 mg PO BID 06/06/22 [History Confirmed 07/06/22] Omeprazole 40 mg PO DAILY 06/06/22 [History Confirmed 07/06/22] Ondansetron [Ondansetron Odt ] 4 mg PO Q4-6HPRN PRN 06/06/22 [History Confirmed 07/06/22] Levothyroxine Sodium [Levothyroxine] 225 mcg PO DAILY 06/14/22 [History Confirmed 07/06/22] Aspirin EC 81 mg [Ecotrin 81 mg] 325 mg PO DAILY 07/06/22 [History Confirmed 07/06/22] Hydrocodone/Acetaminophen [Hydrocodone-Acetamin 5-325 mg] 1 tab PO Q6H PRN P RN 07/06/22 [History Confirmed 07/06/22] Tizanidine HCl 4 mg [Zanaflex 4 MG] 4 mg PO Q8H PRN PRN 07/06/22 [History Confirmed 07/06/22] Allergies/Adverse Reactions: Allergies Allergy/AdvReac Type Severity Reaction Status Date / Time [id number] Reductase Allergy Intermediate Blisters Verified 07/06/22 00:05 Inhibitor Tetracyclines Allergy Verified 07/06/22 00:05 - Past Medical History Past Medical History: Yes Neurological History: Peripheral Neuropathy, Seizures, Stroke, Other ENT History: Cataracts Cardiac History: High Cholesterol, Hypertension Respiratory History: Sleep Apnea, Other Endocrine Medical History: Diabetes Type II, Other Musculoskelatal History: Osteoarthritis GI Medical History: No Pertinent History, GERD, Other History: No Pertinent History Pyscho-Social History: No Pertinent History Male Reproductive Disorders: Prostate Problems Comment: Hx of CVA 2020. Neuropathy upper and lowerr extremeties, fatty liver. Former smoker, quit 10 days ago. - Past Surgical History Past Surgical History: Yes Neuro Surgical History: No Pertinent History Cardiac History: No Pertinent History Respiratory Surgery: No Pertinent History GI Surgical History: No Pertinent History Genitourinary Surgical Hx: No Pertinent History Musculskeletal Surgical Hx: Orthopedic Surgery, Other Male Surgical History: No Pertinent History Other Surgical History: back surgery- spinal fusion, 2 rods. reconstructive surgery rt foot - Social History Smoking Status: Former smoker How long have you smoked: 45 Exposure to second hand smoke: No Alcohol: None Drug Use: none - Physical Exam Vital Signs: Vital Signs - 24 hr Temp Pulse Resp BP Pulse Ox 07/06/22 12:00 98.7 F 109 H 19 146/96 99 07/06/22 07:19 97.8 F 79 18 144/69 99 07/06/22 04:00 97.8 F 69 18 155/76 99 07/06/22 03:19 97.7 F 65 18 148/73 100 07/06/22 02:05 69 18 131/78 99 07/06/22 01:00 63 18 117/77 97 07/06/22 00:55 99 07/05/22 23:49 97.1 F 75 20 130/69 99 General Appearance: no apparent distress, alert Neurologic Exam: alert, oriented x 3, cooperative, normal mood/affect, nml cerebellar function, nml station & gait, sensation nml, No motor deficits Eye Exam: PERRL/EOMI, eyes nml inspection Ears, Nose, Throat Exam: normal ENT inspection, TMs normal, pharynx normal, mois t mucous membranes Neck Exam: normal inspection, non-tender, supple, full range of motion Respiratory Exam: wheezing, No respiratory distress Cardiovascular Exam: regular rate/rhythm, normal heart sounds, normal peripheral pulses Gastrointestinal/Abdomen Exam: soft, normal bowel sounds, No tenderness, No mass Back Exam: normal inspection, normal range of motion, No CVA tenderness, No vertebral tenderness Extremity Exam: normal inspection, normal range of motion, pelvis stable Skin Exam: normal color, warm, dry, No rash Lymphatic Exam: No adenopathy Results - Labs Lab/Micro Results: Lab Results-Last 24 Hours 07/06/22 07/06/22 07/06/22 Range/Units 00:20 00:20 00:21 WBC 6.6 (4.0-10.5) x10^3/uL RBC 2.84 L (4.1-5.6) x10^6/uL Hgb 7.0 L (12.5-18.0) g/dL Hct 24.3 L (42-50) % MCV 85.6 (78-100) fL MCH 24.6 L (26-32) pg MCHC 28.8 L (32-36) g/dL RDW 15.8 H (11.5-14.0) % Plt Count 214 (150-450) x10^3/uL MPV 10.1 (7.5-11.0) fL Gran % (36.0-66.0) % Immature Gran % (Auto) (0.00-0.4) % Nucleat RBC Rel Count (0.00-0.1) % Eos # (Auto) (0-0.5) x10^3/uL Immature Gran # (Auto) (0.00-0.03) x10^3u/L Absolute Lymphs (auto) (1.0-4.6) x10^3/uL Absolute Monos (auto) (0.0-1.3) x10^3/uL Absolute Nucleated RBC (0.00-0.01) x10^3u/L Lymphocytes % (24.0-44.0) % Monocytes % (0.0-12.0) % Eosinophils % (0.00-5.0) % Basophils % (0.0-0.4) % Absolute Granulocytes (1.4-6.9) x10^3/uL Segmented Neutrophils 55 (36.-66.) % Lymphocytes (Manual) 35 (24-44) % Monocytes (Manual) 6 (0.0-12.0) % Eosinophils (Manual) 4 H (0.00-3.0) % Basophils # (0-0.4) x10^3/uL Hypochromia 1+ Platelet Estimate NORMAL (NORMAL) RBC Morphology ABNORMAL Polychromasia 1+ Smear Path Review Pending PT (9.4-12.5) SECONDS INR (0.8-3.0) APTT (25.1-36.5) SECONDS Sodium 134 L (137-145) mmol/L Potassium 5.2 H (3.5-5.1) mmol/L Chloride 103 (98-107) mmol/L Carbon Dioxide 19 L (22-30) mmol/L Anion Gap 17.0 H (5-15) MEQ/L BUN 18 (9-20) mg/dL Creatinine 1.74 H (0.66-1.25) mg/dL Estimated GFR 41.6 ML/MIN Glucose 130 H (74-106) mg/dL POC Glucometer (74 to 106) mg/dL Lactic Acid 3.8 H (0.4-2.0) Calcium 9.3 (8.4-10.2) mg/dL Total Bilirubin 0.60 (0.2-1.3) mg/dL AST 30 (17-59) U/L ALT 20 (0-50) U/L Alkaline Phosphatase 116 (38-126) U/L Serum Total Protein 8.5 H (6.3-8.2) g/dL Albumin 4.4 (3.5-5.0) g/dL Urinalys Dipstick Clnc Urine Color (YELLOW) Urine Appearance (CLEAR) Urine pH (5-6) Ur Specific [place] (1.005-1.025) POC Urine Protein Conf (Negative) Urine Ketones (NEGATIVE) Urine Nitrite (NEGATIVE) Urine Bilirubin (NEGATIVE) Urine Urobilinogen (0-1) mg/dL Urine Leukocytes (NEGATIVE) Urine WBC (Auto) (0-5) /HPF Urine RBC (Auto) (0-2) /HPF U Epithel Cells (Auto) (FEW) /HPF Urine Bacteria (Auto) (NEGATIVE) /HPF Urine RBC (0-5) Gerardo/ul Urine Mucus (Auto) (NEGATIVE) /HPF Ur Culture Indicated? Urine Glucose (NEGATIVE) mg/dL Influenza Type A Ag (NEGATIVE) Influenza Type B Ag (NEGATIVE) RSV (PCR) (Negative) SARS-CoV-2 (PCR) (NEGATIVE) ABO Group Rh Factor Antibody Screen (NEGATIVE) Crossmatch (COMPATIBLE) 07/06/22 07/06/22 07/06/22 Range/Units 00:48 00:55 01:10 WBC (4.0-10.5) x10^3/uL RBC (4.1-5.6) x10^6/uL Hgb (12.5-18.0) g/dL Hct (42-50) % MCV (78-100) fL MCH (26-32) pg MCHC (32-36) g/dL RDW (11.5-14.0) % Plt Count (150-450) x10^3/uL MPV (7.5-11.0) fL Gran % (36.0-66.0) % Immature Gran % (Auto) (0.00-0.4) % Nucleat RBC Rel Count (0.00-0.1) % Eos # (Auto) (0-0.5) x10^3/uL Immature Gran # (Auto) (0.00-0.03) x10^3u/L Absolute Lymphs (auto) (1.0-4.6) x10^3/uL Absolute Monos (auto) (0.0-1.3) x10^3/uL Absolute Nucleated RBC (0.00-0.01) x10^3u/L Lymphocytes % (24.0-44.0) % Monocytes % (0.0-12.0) % Eosinophils % (0.00-5.0) % Basophils % (0.0-0.4) % Absolute Granulocytes (1.4-6.9) x10^3/uL Segmented Neutrophils (36.-66.) % Lymphocytes (Manual) (24-44) % Monocytes (Manual) (0.0-12.0) % Eosinophils (Manual) (0.00-3.0) % Basophils # (0-0.4) x10^3/uL Hypochromia Platelet Estimate (NORMAL) RBC Morphology Polychromasia Smear Path Review PT 11.9 (9.4-12.5) SECONDS INR 1.14 (0.8-3.0) APTT 25.0 L (25.1-36.5) SECONDS Sodium (137-145) mmol/L Potassium (3.5-5.1) mmol/L Chloride (98-107) mmol/L Carbon Dioxide (22-30) mmol/L Anion Gap (5-15) MEQ/L BUN (9-20) mg/dL Creatinine (0.66-1.25) mg/dL Estimated GFR ML/MIN Glucose (74-106) mg/dL POC Glucometer 133 H (74 to 106) mg/dL Lactic Acid (0.4-2.0) Calcium (8.4-10.2) mg/dL Total Bilirubin (0.2-1.3) mg/dL AST (17-59) U/L ALT (0-50) U/L Alkaline Phosphatase (38-126) U/L Serum Total Protein (6.3-8.2) g/dL Albumin (3.5-5.0) g/dL Urinalys Dipstick Clnc Urine Color (YELLOW) Urine Appearance (CLEAR) Urine pH (5-6) Ur Specific [place] (1.005-1.025) POC Urine Protein Conf (Negative) Urine Ketones (NEGATIVE) Urine Nitrite (NEGATIVE) Urine Bilirubin (NEGATIVE) Urine Urobilinogen (0-1) mg/dL Urine Leukocytes (NEGATIVE) Urine WBC (Auto) (0-5) /HPF Urine RBC (Auto) (0-2) /HPF U Epithel Cells (Auto) (FEW) /HPF Urine Bacteria (Auto) (NEGATIVE) /HPF Urine RBC (0-5) Gerardo/ul Urine Mucus (Auto) (NEGATIVE) /HPF Ur Culture Indicated? Urine Glucose (NEGATIVE) mg/dL Influenza Type A Ag NEGATIVE (NEGATIVE) Influenza Type B Ag NEGATIVE (NEGATIVE) RSV (PCR) NEGATIVE (Negative) SARS-CoV-2 (PCR) NEGATIVE (NEGATIVE) ABO Group Rh Factor Antibody Screen (NEGATIVE) Crossmatch (COMPATIBLE) 07/06/22 07/06/22 07/06/22 Range/Units 01:10 01:48 02:26 WBC (4.0-10.5) x10^3/uL RBC (4.1-5.6) x10^6/uL Hgb (12.5-18.0) g/dL Hct (42-50) % MCV (78-100) fL MCH (26-32) pg MCHC (32-36) g/dL RDW (11.5-14.0) % Plt Count (150-450) x10^3/uL MPV (7.5-11.0) fL Gran % (36.0-66.0) % Immature Gran % (Auto) (0.00-0.4) % Nucleat RBC Rel Count (0.00-0.1) % Eos # (Auto) (0-0.5) x10^3/uL Immature Gran # (Auto) (0.00-0.03) x10^3u/L Absolute Lymphs (auto) (1.0-4.6) x10^3/uL Absolute Monos (auto) (0.0-1.3) x10^3/uL Absolute Nucleated RBC (0.00-0.01) x10^3u/L Lymphocytes % (24.0-44.0) % Monocytes % (0.0-12.0) % Eosinophils % (0.00-5.0) % Basophils % (0.0-0.4) % Absolute Granulocytes (1.4-6.9) x10^3/uL Segmented Neutrophils (36.-66.) % Lymphocytes (Manual) (24-44) % Monocytes (Manual) (0.0-12.0) % Eosinophils (Manual) (0.00-3.0) % Basophils # (0-0.4) x10^3/uL Hypochromia Platelet Estimate (NORMAL) RBC Morphology Polychromasia Smear Path Review PT (9.4-12.5) SECONDS INR (0.8-3.0) APTT (25.1-36.5) SECONDS Sodium (137-145) mmol/L Potassium (3.5-5.1) mmol/L Chloride (98-107) mmol/L Carbon Dioxide (22-30) mmol/L Anion Gap (5-15) MEQ/L BUN (9-20) mg/dL Creatinine (0.66-1.25) mg/dL Estimated GFR ML/MIN Glucose (74-106) mg/dL POC Glucometer (74 to 106) mg/dL Lactic Acid 2.6 H (0.4-2.0) Calcium (8.4-10.2) mg/dL Total Bilirubin (0.2-1.3) mg/dL AST (17-59) U/L ALT (0-50) U/L Alkaline Phosphatase (38-126) U/L Serum Total Protein (6.3-8.2) g/dL Albumin (3.5-5.0) g/dL Urinalys Dipstick Clnc Urine Color (YELLOW) Urine Appearance (CLEAR) Urine pH (5-6) Ur Specific [place] (1.005-1.025) POC Urine Protein Conf (Negative) Urine Ketones (NEGATIVE) Urine Nitrite (NEGATIVE) Urine Bilirubin (NEGATIVE) Urine Urobilinogen (0-1) mg/dL Urine Leukocytes (NEGATIVE) Urine WBC (Auto) (0-5) /HPF Urine RBC (Auto) (0-2) /HPF U Epithel Cells (Auto) (FEW) /HPF Urine Bacteria (Auto) (NEGATIVE) /HPF Urine RBC (0-5) Gerardo/ul Urine Mucus (Auto) (NEGATIVE) /HPF Ur Culture Indicated? Urine Glucose (NEGATIVE) mg/dL Influenza Type A Ag (NEGATIVE) Influenza Type B Ag (NEGATIVE) RSV (PCR) (Negative) SARS-CoV-2 (PCR) (NEGATIVE) ABO Group A Rh Factor POSITIVE Antibody Screen NEGATIVE (NEGATIVE) Crossmatch COMPATIBLE COMPATIBLE (COMPATIBLE) 07/06/22 07/06/22 07/06/22 Range/Units 02:46 07:39 09:35 WBC 6.1 (4.0-10.5) x10^3/uL RBC 3.47 L (4.1-5.6) x10^6/uL Hgb 9.1 L D (12.5-18.0) g/dL Hct 29.9 L (42-50) % MCV 86.2 (78-100) fL MCH 26.2 (26-32) pg MCHC 30.4 L (32-36) g/dL RDW 15.5 H (11.5-14.0) % Plt Count 180 (150-450) x10^3/uL MPV 9.1 (7.5-11.0) fL Gran % 61.5 (36.0-66.0) % Immature Gran % (Auto) 0.3 (0.00-0.4) % Nucleat RBC Rel Count 0.0 (0.00-0.1) % Eos # (Auto) 0.11 (0-0.5) x10^3/uL Immature Gran # (Auto) 0.02 (0.00-0.03) x10^3u/L Absolute Lymphs (auto) 1.79 (1.0-4.6) x10^3/uL Absolute Monos (auto) 0.41 (0.0-1.3) x10^3/uL Absolute Nucleated RBC 0.00 (0.00-0.01) x10^3u/L Lymphocytes % 29.4 (24.0-44.0) % Monocytes % 6.7 (0.0-12.0) % Eosinophils % 1.8 (0.00-5.0) % Basophils % 0.3 (0.0-0.4) % Absolute Granulocytes 3.73 (1.4-6.9) x10^3/uL Segmented Neutrophils (36.-66.) % Lymphocytes (Manual) (24-44) % Monocytes (Manual) (0.0-12.0) % Eosinophils (Manual) (0.00-3.0) % Basophils # 0.02 (0-0.4) x10^3/uL Hypochromia Platelet Estimate (NORMAL) RBC Morphology Polychromasia Smear Path Review PT (9.4-12.5) SECONDS INR (0.8-3.0) APTT (25.1-36.5) SECONDS Sodium (137-145) mmol/L Potassium (3.5-5.1) mmol/L Chloride (98-107) mmol/L Carbon Dioxide (22-30) mmol/L Anion Gap (5-15) MEQ/L BUN (9-20) mg/dL Creatinine (0.66-1.25) mg/dL Estimated GFR ML/MIN Glucose (74-106) mg/dL POC Glucometer 103 (74 to 106) mg/dL Lactic Acid (0.4-2.0) Calcium (8.4-10.2) mg/dL Total Bilirubin (0.2-1.3) mg/dL AST (17-59) U/L ALT (0-50) U/L Alkaline Phosphatase (38-126) U/L Serum Total Protein (6.3-8.2) g/dL Albumin (3.5-5.0) g/dL Urinalys Dipstick Clnc MAIN LAB Urine Color YELLOW (YELLOW) Urine Appearance CLEAR (CLEAR) Urine pH 5.5 (5-6) Ur Specific [place] 1.015 (1.005-1.025) POC Urine Protein Conf NEGATIVE (Negative) Urine Ketones NEGATIVE (NEGATIVE) Urine Nitrite NEGATIVE (NEGATIVE) Urine Bilirubin NEGATIVE (NEGATIVE) Urine Urobilinogen 0.2 (0-1) mg/dL Urine Leukocytes NEGATIVE (NEGATIVE) Urine WBC (Auto) 0-2 (0-5) /HPF Urine RBC (Auto) 6-10 (0-2) /HPF U Epithel Cells (Auto) RARE (FEW) /HPF Urine Bacteria (Auto) NONE (NEGATIVE) /HPF Urine RBC TRACE-INTACT (0-5) Gerardo/ul Urine Mucus (Auto) SLIGHT (NEGATIVE) /HPF Ur Culture Indicated? NO Urine Glucose NEGATIVE (NEGATIVE) mg/dL Influenza Type A Ag (NEGATIVE) Influenza Type B Ag (NEGATIVE) RSV (PCR) (Negative) SARS-CoV-2 (PCR) (NEGATIVE) ABO Group Rh Factor Antibody Screen (NEGATIVE) Crossmatch (COMPATIBLE) 07/06/22 07/06/22 Range/Units 09:35 11:46 WBC (4.0-10.5) x10^3/uL RBC (4.1-5.6) x10^6/uL Hgb (12.5-18.0) g/dL Hct (42-50) % MCV (78-100) fL MCH (26-32) pg MCHC (32-36) g/dL RDW (11.5-14.0) % Plt Count (150-450) x10^3/uL MPV (7.5-11.0) fL Gran % (36.0-66.0) % Immature Gran % (Auto) (0.00-0.4) % Nucleat RBC Rel Count (0.00-0.1) % Eos # (Auto) (0-0.5) x10^3/uL Immature Gran # (Auto) (0.00-0.03) x10^3u/L Absolute Lymphs (auto) (1.0-4.6) x10^3/uL Absolute Monos (auto) (0.0-1.3) x10^3/uL Absolute Nucleated RBC (0.00-0.01) x10^3u/L Lymphocytes % (24.0-44.0) % Monocytes % (0.0-12.0) % Eosinophils % (0.00-5.0) % Basophils % (0.0-0.4) % Absolute Granulocytes (1.4-6.9) x10^3/uL Segmented Neutrophils (36.-66.) % Lymphocytes (Manual) (24-44) % Monocytes (Manual) (0.0-12.0) % Eosinophils (Manual) (0.00-3.0) % Basophils # (0-0.4) x10^3/uL Hypochromia Platelet Estimate (NORMAL) RBC Morphology Polychromasia Smear Path Review PT (9.4-12.5) SECONDS INR (0.8-3.0) APTT (25.1-36.5) SECONDS Sodium 136 L (137-145) mmol/L Potassium 5.0 (3.5-5.1) mmol/L Chloride 105 (98-107) mmol/L Carbon Dioxide 19 L (22-30) mmol/L Anion Gap 16.7 H (5-15) MEQ/L BUN 15 (9-20) mg/dL Creatinine 1.51 H (0.66-1.25) mg/dL Estimated GFR 48.9 ML/MIN Glucose 167 H (74-106) mg/dL POC Glucometer 125 H (74 to 106) mg/dL Lactic Acid (0.4-2.0) Calcium 9.0 (8.4-10.2) mg/dL Total Bilirubin 1.10 (0.2-1.3) mg/dL AST 27 (17-59) U/L ALT 20 (0-50) U/L Alkaline Phosphatase 115 (38-126) U/L Serum Total Protein 8.3 H (6.3-8.2) g/dL Albumin 4.3 (3.5-5.0) g/dL Urinalys Dipstick Clnc Urine Color (YELLOW) Urine Appearance (CLEAR) Urine pH (5-6) Ur Specific [place] (1.005-1.025) POC Urine Protein Conf (Negative) Urine Ketones (NEGATIVE) Urine Nitrite (NEGATIVE) Urine Bilirubin (NEGATIVE) Urine Urobilinogen (0-1) mg/dL Urine Leukocytes (NEGATIVE) Urine WBC (Auto) (0-5) /HPF Urine RBC (Auto) (0-2) /HPF U Epithel Cells (Auto) (FEW) /HPF Urine Bacteria (Auto) (NEGATIVE) /HPF Urine RBC (0-5) Gerardo/ul Urine Mucus (Auto) (NEGATIVE) /HPF Ur Culture Indicated? Urine Glucose (NEGATIVE) mg/dL Influenza Type A Ag (NEGATIVE) Influenza Type B Ag (NEGATIVE) RSV (PCR) (Negative) SARS-CoV-2 (PCR) (NEGATIVE) ABO Group Rh Factor Antibody Screen (NEGATIVE) Crossmatch (COMPATIBLE) Accuchecks Date 07/06/22 Time 00:56 - Radiology Impressions Radiology Exams & Impressions: Radiology Procedures Category Date Time Status CHEST 1 VIEW (PORTABLE) Stat Exams 07/06/22 00:02 Completed SHOULDER Routine Exams 07/06/22 13:01 Ordered Assessment/Plan (1) Recurrent seizures Current Visit: Yes Status: Acute Assessment & Plan: Chief Complaint Diagnosis seizure Allergies Allergy/AdvReac Type Severity Reaction Status Date / Time [id number] Reductase Allergy Intermediate Blisters Verified 07/06/22 00:05 Inhibitor Tetracyclines Allergy Verified 07/06/22 00:05 Vital Signs (Last 24 hours) Temp Pulse Resp BP Pulse Ox 07/06/22 12:00 98.7 F 109 H 19 146/96 99 07/06/22 07:19 97.8 F 79 18 144/69 99 07/06/22 04:00 97.8 F 69 18 155/76 99 07/06/22 03:19 97.7 F 65 18 148/73 100 07/06/22 02:05 69 18 131/78 99 07/06/22 01:00 63 18 117/77 97 07/06/22 00:55 99 07/05/22 23:49 97.1 F 75 20 130/69 99 Home Medications Medication Instructions Recorded Confirmed Last Taken Type Aspirin EC 81 mg [Ecotrin 81 325 mg PO DAILY 07/06/22 07/06/22 07/05/22 08:00 History mg] Hydrocodone/Acetaminophen 1 tab PO Q6H PRN PRN 07/06/22 07/06/22 07/05/22 20:00 History [Hydrocodone-Acetamin 5-325 mg] Tizanidine HCl 4 mg [Zanaflex 4 4 mg PO Q8H PRN PRN 07/06/22 07/06/22 07/05/22 History MG] Current Medications Generic Name Dose Route Start Last Admin Trade Name Freq PRN Reason Stop Dose Admin Acetaminophen 650 mg 07/06/22 02:14 Acetaminophen 325 Mg Tablet PO 08/05/22 02:13 Q4H PRN PRN PAIN AND/OR FEVER Hydrocodone Bitart/Acetaminophen 1 tab 07/06/22 12:08 Hydrocodone/Apap 5/325 Mg Tablet PO 07/11/22 12:07 Q6H PRN PRN PAIN Aspirin 325 mg 07/07/22 10:00 Aspirin 325 Mg Tablet.Ec PO 08/06/22 09:59 DAILY SARA Cholecalciferol 10,000 unit 07/07/22 10:00 Cholecalciferol (Vitamin D3) 1000 Unit Tablet PO 08/06/22 09:59 DAILY SARA Duloxetine HCl 60 mg 07/06/22 12:15 07/06/22 12:52 Duloxetine Hcl 30 Mg Cap PO 08/05/22 12:14 60 mg BID SARA Administration Gabapentin 800 mg 07/06/22 13:00 07/06/22 12:52 Gabapentin 400 Mg Capsule PO 08/05/22 12:59 800 mg QID SARA Administration Glipizide 5 mg 07/06/22 12:15 07/06/22 12:52 Glipizide 5 Mg Tablet PO 08/05/22 12:14 5 mg BID SARA Administration Pantoprazole Sodium 80 mg/ 500 mls @ 50 mls/hr 07/06/22 01:00 07/06/22 12:00 Sodium Chloride IV 08/05/22 00:59 50 ml/hr .Q10H SARA 50 mls/hr Administration Sodium Chloride 1,000 mls @ 75 mls/hr 07/06/22 02:14 07/06/22 03:22 Sodium Chloride 0.9% 1000 Ml IV 08/05/22 02:13 75 mls/hr .[id number] SARA Administration Insulin Human Lispro 0 unit 07/06/22 02:14 Insulin Lispro 1 Unit SQ 08/05/22 02:13 UD PRN HYPERGLYCEMIA Levothyroxine Sodium 100 mcg 07/06/22 12:30 07/06/22 12:52 Levothyroxine Sodium 100 Mcg Tablet PO 08/05/22 12:29 100 mcg DAILY SARA Administration Levothyroxine Sodium 125 mcg 07/06/22 12:30 07/06/22 12:52 Levothyroxine Sodium 125 Mcg Tablet PO 08/05/22 12:29 125 mcg DAILY SARA Administration Metformin HCl 1,000 mg 07/06/22 17:00 Metformin Hcl 500 Mg Tablet PO 08/05/22 16:59 BIDWM SARA Metoprolol Tartrate 50 mg 07/06/22 12:30 07/06/22 12:52 Metoprolol Tartrate 50 Mg Tablet PO 08/05/22 12:29 50 mg BID SARA Administration Morphine Sulfate 2 mg 07/06/22 02:14 07/06/22 12:55 Morphine Sulfate 2 Mg/Ml Inj IV 07/11/22 02:13 2 mg Q4H PRN PRN Administration PAIN Ondansetron HCl 4 mg 07/06/22 02:14 Ondansetron Hcl 4 Mg/2 Ml Vial IV 08/05/22 02:13 Q6H PRN PRN NAUSEA/VOMITING Ondansetron HCl 4 mg 07/06/22 12:08 Zofran 4 Mg/Udtablet Orally Disintegrating PO 08/05/22 12:07 Q4H PRN PRN NAUSEA Tamsulosin HCl 0.4 mg 07/06/22 12:15 07/06/22 12:52 Tamsulosin Hcl 0.4 Mg Cap PO 08/05/22 12:14 0.4 mg DAILY SARA Administration Tizanidine HCl 4 mg 07/06/22 12:08 Tizanidine Hcl 4 Mg Tablet PO 08/05/22 12:07 Q8H PRN PRN MUSCLE SPASMS Discontinued Medications Generic Name Dose Route Start Last Admin Trade Name Freq PRN Reason Stop Dose Admin Albuterol/Ipratropium 3 ml 07/06/22 02:14 Ipratropium/Albuterol Sulfate 3 Ml Ampul.Neb IH 08/05/22 02:13 Q4HPRN PRN SHORTNESS OF BREATH/WHEEZING Levetiracetam 1,000 mg/ 110 mls @ 400 mls/hr 07/06/22 00:02 07/06/22 00:25 Dextrose IV 07/06/22 00:18 400 mls/hr STAT ONE Administration Sodium Chloride 1,000 mls @ 999 mls/hr 07/06/22 00:02 07/06/22 00:26 Sodium Chloride 0.9% 1000 Ml IV 07/06/22 01:02 999 mls/hr .Q1H1M STA Administration Dextrose Confirm 07/06/22 00:24 D5w 100ml Mini Bag 100 Ml Administered 07/06/22 00:25 Dose 100 mls @ ud IV .STK-MED ONE Sodium Chloride Confirm 07/06/22 00:28 Sodium Chloride 0.9% 1000 Ml Administered 07/06/22 00:29 Dose 1,000 mls @ ud .ROUTE .STK-MED ONE Sodium Chloride Confirm 07/06/22 01:25 Sodium Chloride 0.9% 500 Ml Administered 07/06/22 01:26 Dose 500 mls @ ud IV .STK-MED ONE Levetiracetam Confirm 07/06/22 00:24 Levetiracetam 500 Mg/5 Ml Vial Administered 07/06/22 00:25 Dose 500 mg .ROUTE .STK-MED ONE Levetiracetam Confirm 07/06/22 00:28 Levetiracetam 500 Mg/5 Ml Vial Administered 07/06/22 00:29 Dose 500 mg .ROUTE .STK-MED ONE Non-Formulary Medication 40 mg 07/07/22 10:00 Omeprazole [Omeprazole] PO 08/06/22 09:59 DAILY SARA Ondansetron HCl 4 mg 07/06/22 00:02 07/06/22 00:26 Ondansetron Hcl 4 Mg/2 Ml Vial IV 07/06/22 00:03 4 mg STAT ONE Administration Ondansetron HCl Confirm 07/06/22 00:22 Ondansetron Hcl 4 Mg/2 Ml Vial Administered 07/06/22 00:23 Dose 4 mg .ROUTE .STK-MED ONE Pantoprazole Sodium 40 mg 07/06/22 00:48 07/06/22 01:26 Pantoprazole 40 Mg Vial IV 07/06/22 00:49 40 mg STAT ONE Administration Pantoprazole Sodium Confirm 07/06/22 01:24 Pantoprazole 40 Mg Vial Administered 07/06/22 01:25 Dose 40 mg IV .STK-MED ONE Intake & Output (Last 24 hours) 07/04/22 07/05/22 07/06/22 07/07/22 11:59 11:59 11:59 11:59 Intake Total 786 240 Output Total 1100 Balance -314 240 Weight 108 kg Laboratory Results (Last 24 hours) 07/06/22 07/06/22 07/06/22 11:46 09:35 09:35 WBC 6.1 RBC 3.47 L Hgb 9.1 L D Hct 29.9 L MCV 86.2 MCH 26.2 MCHC 30.4 L RDW 15.5 H Plt Count 180 MPV 9.1 Gran % 61.5 Immature Gran % (Auto) 0.3 Nucleat RBC Rel Count 0.0 Eos # (Auto) 0.11 Immature Gran # (Auto) 0.02 Absolute Lymphs (auto) 1.79 Absolute Monos (auto) 0.41 Absolute Nucleated RBC 0.00 Lymphocytes % 29.4 Monocytes % 6.7 Eosinophils % 1.8 Basophils % 0.3 Absolute Granulocytes 3.73 Segmented Neutrophils Lymphocytes (Manual) Monocytes (Manual) Eosinophils (Manual) Basophils # 0.02 Hypochromia Platelet Estimate RBC Morphology Polychromasia PT INR APTT Sodium 136 L Potassium 5.0 Chloride 105 Carbon Dioxide 19 L Anion Gap 16.7 H BUN 15 Creatinine 1.51 H Estimated GFR 48.9 Glucose 167 H POC Glucometer 125 H Lactic Acid Calcium 9.0 Total Bilirubin 1.10 AST 27 ALT 20 Alkaline Phosphatase 115 Serum Total Protein 8.3 H Albumin 4.3 Urinalys Dipstick Clnc Urine Color Urine Appearance Urine pH Ur Specific [place] POC Urine Protein Conf Urine Ketones Urine Nitrite Urine Bilirubin Urine Urobilinogen Urine Leukocytes Urine WBC (Auto) Urine RBC (Auto) U Epithel Cells (Auto) Urine Bacteria (Auto) Urine RBC Urine Mucus (Auto) Ur Culture Indicated? Urine Glucose Influenza Type A Ag Influenza Type B Ag RSV (PCR) SARS-CoV-2 (PCR) ABO Group Rh Factor Antibody Screen Crossmatch 07/06/22 07/06/22 07/06/22 07:39 02:46 02:26 WBC RBC Hgb Hct MCV MCH MCHC RDW Plt Count MPV Gran % Immature Gran % (Auto) Nucleat RBC Rel Count Eos # (Auto) Immature Gran # (Auto) Absolute Lymphs (auto) Absolute Monos (auto) Absolute Nucleated RBC Lymphocytes % Monocytes % Eosinophils % Basophils % Absolute Granulocytes Segmented Neutrophils Lymphocytes (Manual) Monocytes (Manual) Eosinophils (Manual) Basophils # Hypochromia Platelet Estimate RBC Morphology Polychromasia PT INR APTT Sodium Potassium Chloride Carbon Dioxide Anion Gap BUN Creatinine Estimated GFR Glucose POC Glucometer 103 Lactic Acid 2.6 H Calcium Total Bilirubin AST ALT Alkaline Phosphatase Serum Total Protein Albumin Urinalys Dipstick Clnc MAIN LAB Urine Color YELLOW Urine Appearance CLEAR Urine pH 5.5 Ur Specific [place] 1.015 POC Urine Protein Conf NEGATIVE Urine Ketones NEGATIVE Urine Nitrite NEGATIVE Urine Bilirubin NEGATIVE Urine Urobilinogen 0.2 Urine Leukocytes NEGATIVE Urine WBC (Auto) 0-2 Urine RBC (Auto) 6-10 U Epithel Cells (Auto) RARE Urine Bacteria (Auto) NONE Urine RBC TRACE-INTACT Urine Mucus (Auto) SLIGHT Ur Culture Indicated? NO Urine Glucose NEGATIVE Influenza Type A Ag Influenza Type B Ag RSV (PCR) SARS-CoV-2 (PCR) ABO Group Rh Factor Antibody Screen Crossmatch 07/06/22 07/06/22 07/06/22 01:48 01:10 01:10 WBC RBC Hgb Hct MCV MCH MCHC RDW Plt Count MPV Gran % Immature Gran % (Auto) Nucleat RBC Rel Count Eos # (Auto) Immature Gran # (Auto) Absolute Lymphs (auto) Absolute Monos (auto) Absolute Nucleated RBC Lymphocytes % Monocytes % Eosinophils % Basophils % Absolute Granulocytes Segmented Neutrophils Lymphocytes (Manual) Monocytes (Manual) Eosinophils (Manual) Basophils # Hypochromia Platelet Estimate RBC Morphology Polychromasia PT INR APTT Sodium Potassium Chloride Carbon Dioxide Anion Gap BUN Creatinine Estimated GFR Glucose POC Glucometer Lactic Acid Calcium Total Bilirubin AST ALT Alkaline Phosphatase Serum Total Protein Albumin Urinalys Dipstick Clnc Urine Color Urine Appearance Urine pH Ur Specific [place] POC Urine Protein Conf Urine Ketones Urine Nitrite Urine Bilirubin Urine Urobilinogen Urine Leukocytes Urine WBC (Auto) Urine RBC (Auto) U Epithel Cells (Auto) Urine Bacteria (Auto) Urine RBC Urine Mucus (Auto) Ur Culture Indicated? Urine Glucose Influenza Type A Ag NEGATIVE Influenza Type B Ag NEGATIVE RSV (PCR) NEGATIVE SARS-CoV-2 (PCR) NEGATIVE ABO Group A Rh Factor POSITIVE Antibody Screen NEGATIVE Crossmatch COMPATIBLE COMPATIBLE 07/06/22 07/06/22 07/06/22 00:55 00:48 00:21 WBC RBC Hgb Hct MCV MCH MCHC RDW Plt Count MPV Gran % Immature Gran % (Auto) Nucleat RBC Rel Count Eos # (Auto) Immature Gran # (Auto) Absolute Lymphs (auto) Absolute Monos (auto) Absolute Nucleated RBC Lymphocytes % Monocytes % Eosinophils % Basophils % Absolute Granulocytes Segmented Neutrophils Lymphocytes (Manual) Monocytes (Manual) Eosinophils (Manual) Basophils # Hypochromia Platelet Estimate RBC Morphology Polychromasia PT 11.9 INR 1.14 APTT 25.0 L Sodium Potassium Chloride Carbon Dioxide Anion Gap BUN Creatinine Estimated GFR Glucose POC Glucometer 133 H Lactic Acid 3.8 H Calcium Total Bilirubin AST ALT Alkaline Phosphatase Serum Total Protein Albumin Urinalys Dipstick Clnc Urine Color Urine Appearance Urine pH Ur Specific [place] POC Urine Protein Conf Urine Ketones Urine Nitrite Urine Bilirubin Urine Urobilinogen Urine Leukocytes Urine WBC (Auto) Urine RBC (Auto) U Epithel Cells (Auto) Urine Bacteria (Auto) Urine RBC Urine Mucus (Auto) Ur Culture Indicated? Urine Glucose Influenza Type A Ag Influenza Type B Ag RSV (PCR) SARS-CoV-2 (PCR) ABO Group Rh Factor Antibody Screen Crossmatch 07/06/22 07/06/22 00:20 00:20 WBC 6.6 RBC 2.84 L Hgb 7.0 L Hct 24.3 L MCV 85.6 MCH 24.6 L MCHC 28.8 L RDW 15.8 H Plt Count 214 MPV 10.1 Gran % Immature Gran % (Auto) Nucleat RBC Rel Count Eos # (Auto) Immature Gran # (Auto) Absolute Lymphs (auto) Absolute Monos (auto) Absolute Nucleated RBC Lymphocytes % Monocytes % Eosinophils % Basophils % Absolute Granulocytes Segmented Neutrophils 55 Lymphocytes (Manual) 35 Monocytes (Manual) 6 Eosinophils (Manual) 4 H Basophils # Hypochromia 1+ Platelet Estimate NORMAL RBC Morphology ABNORMAL Polychromasia 1+ PT INR APTT Sodium 134 L Potassium 5.2 H Chloride 103 Carbon Dioxide 19 L Anion Gap 17.0 H BUN 18 Creatinine 1.74 H Estimated GFR 41.6 Glucose 130 H POC Glucometer Lactic Acid Calcium 9.3 Total Bilirubin 0.60 AST 30 ALT 20 Alkaline Phosphatase 116 Serum Total Protein 8.5 H Albumin 4.4 Urinalys Dipstick Clnc Urine Color Urine Appearance Urine pH Ur Specific [place] POC Urine Protein Conf Urine Ketones Urine Nitrite Urine Bilirubin Urine Urobilinogen Urine Leukocytes Urine WBC (Auto) Urine RBC (Auto) U Epithel Cells (Auto) Urine Bacteria (Auto) Urine RBC Urine Mucus (Auto) Ur Culture Indicated? Urine Glucose Influenza Type A Ag Influenza Type B Ag RSV (PCR) SARS-CoV-2 (PCR) ABO Group Rh Factor Antibody Screen Crossmatch Orders (Last 24 hours) Category Date Time Status Bedrest ROUTINE Activity 07/06/22 02:14 Active Up With Assistance ROUTINE Activity 07/06/22 02:14 Active [employer] Targeting Supervisor STAT Care 07/06/22 00:02 Completed Code Status Order ROUTINE Care 07/06/22 02:14 Active Fall Protocol Q1H Care 07/06/22 02:14 Active IV Care Q6H Care 07/06/22 02:14 Active IV Insertion STAT Care 07/06/22 00:02 Completed Neuro Checks Q2H Care 07/06/22 02:14 Active POCT Glucose Check ACHS Care 07/06/22 02:14 Active POCT Glucose Check STAT Care 07/06/22 00:[address] in Observation ROUTINE Care 07/06/22 02:14 Active Kevin CaseJesse ROUTINE Care 07/06/22 02:14 Active Weight,Daily 0600 Care 07/06/22 02:14 Active Consistent Carbohydrate Diet 1800 Calorie Diet 07/06/22 Breakfast Active CHEST 1 VIEW (PORTABLE) Stat Exams 07/06/22 00:02 Completed SHOULDER Routine Exams 07/06/22 13:01 Ordered BLOOD COMPONENT REQUEST Stat Lab 07/06/22 01:10 Completed CBC W DIFF AM.LAB Lab 07/06/22 09:35 Results CBC W DIFF Stat Lab 07/06/22 00:20 Results CMP AM.LAB Lab 07/06/22 09:35 Completed CMP Stat Lab 07/06/22 00:20 Completed COVID/FLU/RSV Panel Stat Lab 07/06/22 01:10 Completed FECAL OCCULT BLOOD - SCREENING Stat Lab 07/06/22 00:48 Ordered Lactic Acid Stat Lab 07/06/22 00:21 Completed Lactic Acid Stat Lab 07/06/22 02:26 Completed Manual Differential NC Stat Lab 07/06/22 00:20 Results POCT GLUCOSE Stat Lab 07/06/22 00:55 Completed POCT GLUCOSE Stat Lab 07/06/22 07:39 Completed POCT GLUCOSE Stat Lab 07/06/22 11:46 Completed PROTIME WITH INR Stat Lab 07/06/22 00:48 Completed PTT Stat Lab 07/06/22 00:48 Completed Pathologist Review Stat Lab 07/06/22 00:20 Results TYPE AND SCREEN Stat Lab 07/06/22 01:10 Completed UA W/RFX CULTURE Stat Lab 07/06/22 02:46 Completed Acetaminophen 325 mg [Tylenol 325 mg] Med 07/06/22 02:14 Active 650 mg PO Q4H PRN PRN Albuterol/Ipratropium 3ml Neb* [DUONEB 0.5-3 MG/3 ml Med 07/06/22 02:14 Discontinued Neb] 3 ml IH Q4HPRN PRN Aspirin EC 325 mg [Ecotrin 325 MG] Med 07/07/22 10:00 Active 325 mg PO DAILY Cholecalciferol (Vitamin D3) [Vitamin D] Med 07/07/22 10:00 Active 10,000 unit PO DAILY D5w 100 ml [D5w 100ML Mini Bag 100 ML] 100 ml Med 07/06/22 00:24 Discontinued IV UD Duloxetine HCl 30 mg [Cymbalta 30 MG Capsule] Med 07/06/22 12:15 Active 60 mg PO BID Gabapentin [Neurontin ] Med 07/06/22 13:00 Active 800 mg PO QID Glipizide 5 mg [Glucotrol 5 MG] Med 07/06/22 12:15 Active 5 mg PO BID Hydrocodone/APAP 5/325 [[place] 5/325 mg] Med 07/06/22 12:08 Active 1 tab PO Q6H PRN PRN Insulin Lispro [Humalog] Med 07/06/22 02:14 Active See Dose Instructions SQ UD PRN Levetiracetam 500 MG/5 ML [Keppra 500 MG/5 ML] Med 07/06/22 00:24 Discontinued 500 mg .ROUTE .STK-MED ONE Levetiracetam 500 MG/5 ML [Keppra 500 MG/5 ML] Med 07/06/22 00:28 Discontinued 500 mg .ROUTE .STK-MED ONE Levetiracetam 500 MG/5 ML [Keppra 500 MG/5 ML] 1, Med 07/06/22 00:02 Discontinued 000 mg D5w 100 ml [D5w 100ML Mini Bag 100 ML] 100 ml IV STAT Levothyroxine Sodium 100 Mcg [Synthroid 100 Mcg] Med 07/06/22 12:30 Active 100 mcg PO DAILY Levothyroxine Sodium 125 Mcg [Synthroid 125 Mcg] Med 07/06/22 12:30 Active 125 mcg PO DAILY Metformin HCl 500 mg [Glucophage 500 MG] Med 07/06/22 17:00 Active 1,000 mg PO BIDWM Metoprolol Tartrate 50 mg [Lopressor 50 MG] Med 07/06/22 12:30 Active 50 mg PO BID Morphine Sulfate 2 mg Inj Med 07/06/22 02:14 Active 2 mg IV Q4H PRN PRN NaCl 0.9% 1000 ml [Sodium Chloride 0.9% 1000 ML] 1,000 Med 07/06/22 00:28 Discontinued ml .ROUTE UD NaCl 0.9% 1000 ml [Sodium Chloride 0.9% 1000 ML] 1,000 Med 07/06/22 02:14 Active ml IV 75 mls/hr NaCl 0.9% 1000 ml [Sodium Chloride 0.9% 1000 ML] 1,000 Med 07/06/22 00:02 Discontinued ml IV 999 mls/hr NaCl 0.9% 500 ml [Sodium Chloride 0.9% 500 ML] 500 ml Med 07/06/22 01:00 Active Pantoprazole 40 mg [Protonix 40 mg IV] 80 mg IV 50 mls/hr NaCl 0.9% 500 ml [Sodium Chloride 0.9% 500 ML] 500 ml Med 07/06/22 01:25 Discontinued IV UD Omeprazole [Omeprazole] Med 07/07/22 10:00 Discontinued 40 mg PO DAILY Ondansetron HCl 4 mg/2 ml [Zofran 4 MG/2 ML VIAL] Med 07/06/22 00:22 Discontinued 4 mg .ROUTE .STK-MED ONE Ondansetron HCl 4 mg/2 ml [Zofran 4 MG/2 ML VIAL] Med 07/06/22 02:14 Active 4 mg IV Q6H PRN PRN Ondansetron HCl 4 mg/2 ml [Zofran 4 MG/2 ML VIAL] Med 07/06/22 00:02 Discontinued 4 mg IV STAT ONE Ondansetron ODT 4 MG [Zofran Odt 4 mg] Med 07/06/22 12:08 Active 4 mg PO Q4H PRN PRN Pantoprazole 40 mg [Protonix 40 mg IV] Med 07/06/22 01:24 Discontinued 40 mg IV .STK-MED ONE Pantoprazole 40 mg [Protonix 40 mg IV] Med 07/06/22 00:48 Discontinued 40 mg IV STAT ONE Tamsulosin HCl 0.4 mg [Flomax 0.4 MG] Med 07/06/22 12:15 Active 0.4 mg PO DAILY Tizanidine HCl 4 mg [Zanaflex 4 MG] Med 07/06/22 12:08 Active 4 mg PO Q8H PRN PRN Transfer Order Routine Transfer 07/06/22 Completed Patient Care Notes (Last 24 hours) 07/06/22 06:27 Nursing Note by Christine Kulkarni First unit of PRBCs started at 0328 and finished at 0607. Patient tolerated well. 2nd unit PRBCs started at 0622. Initialized on 07/06/22 06:27 - END OF NOTE Code(s): G40.909 - EPILEPSY, UNSP, NOT INTRACTABLE, WITHOUT STATUS EPILEPTICUS (2) AYESHA (acute kidney injury) Current Visit: Yes Status: Acute Code(s): N17.9 - ACUTE KIDNEY FAILURE, UNSPECIFIED (3) Anemia Current Visit: Yes Status: Acute Qualifiers: Anemia type: iron deficiency Iron deficiency anemia type: chronic blood loss Qualified Code(s): D50.0 - Iron deficiency anemia secondary to blood loss (chronic) Code(s): D64.9 - ANEMIA, UNSPECIFIED (4) Elevated lactic acid level Current Visit: Yes Status: Acute Code(s): R79.89 - OTHER SPECIFIED ABNORMAL FINDINGS OF BLOOD CHEMISTRY (5) Generalized weakness Current Visit: Yes Status: Acute Code(s): R53.1 - WEAKNESS (6) Liver cirrhosis Current Visit: No Status: Acute (7) Type 2 diabetes mellitus Current Visit: No Status: Acute (8) Uncontrolled hypertension Current Visit: No Status: Acute Code(s): I10 - ESSENTIAL (PRIMARY) HYPERTENSION
[2022-07-06] MEDS: Glucophage 500 MG PO SCH (16:00)
[2022-07-06] MEDS ORDERED: METFORMIN HCL 1000 MG PO SCH (22:00)
--- NOTE | 2022-07-06 22:06 | XRAY ---
Indication: Pain. History of falls. Comparison: None 3 view left shoulder demonstrates mild osteopenia, mild degenerative changes of visualized spine, and small right hilar calcified nodes. No other bony, articular, or soft tissue abnormalities. Comment: Preliminary interpretation made by C. No critical discrepancy.
--- NOTE | 2022-07-06 22:08 | XRAY ---
Indication: Blood in stool. Multiple contiguous axial images obtained through the abdomen and pelvis without contrast. Comparison: April 15, 2022 Lung bases clear of infiltrate and effusion. Heart not enlarged. Visualized distal esophagus again demonstrates mild circumferential wall thickening, possible esophagitis. Noncontrasted stomach and bowel loops nonobstructed again with normal appendix and mild scattered colonic diverticulosis. No free fluid/air. Stable cirrhotic liver with some subcentimeter right lobe hepatic cyst, 16.7 cm splenomegaly and 4 cm right renal cyst. Remaining liver, gallbladder, pancreas, spleen, adrenal glands, kidneys, ureters, and bladder are unremarkable for noncontrast exam. Again mild scattered aortoiliac calcifications without AAA. Osseous structures intact again with degenerative changes throughout the spine, L5-S1 fusion surgery with intact posterior spinal hardware, and small L4 bone cyst. Impression: 1. Again distal esophageal wall thickening. Rule out esophagitis. 2. Again colonic diverticulosis, cirrhosis, hepatic cysts, splenomegaly, right renal cyst, arteriosclerotic disease, and chronic bony findings. 3. Remaining CT abdomen/pelvis without contrast exam is negative. Comment: Preliminary interpretation made by [facility]. No critical discrepancy.
[2022-07-07] MEDS: Sodium Chloride 0.9% 1000 ML 1,000 ML IV SCH (00:54)
[2022-07-07 06:43] VITALS: BP 189/88; PULSE 81; O2SAT 96
[2022-07-07 06:47] LABS: Absolute Neutrophil Ct (ANC) 2.97 x10^3/uL (1.4-6.9); Basophil (Absolute #) 0.02 x10^3/uL (0-0.4); Eosinophil % 2.8 % (0.00-5.0); Eosinophil (Absolute #) 0.14 x10^3/uL (0-0.5); Hematocrit 27.1 % (42-50); Hemoglobin 8.4 g/dL (12.5-18.0); Lymphocyte (Absolute #) 1.42 x10^3/uL (1.0-4.6); Lymphocytes % 28.4 % (24.0-44.0); Mean Cell Volume 83.6 fL (78-100); Mean Corpuscular Hemoglobin 25.9 pg (26-32); Mean Platelet Volume 9.5 fL (7.5-11.0); Monocyte (Absolute #) 0.44 x10^3/uL (0.0-1.3); Monocytes % 8.8 % (0.0-12.0); Neutrophil % 59.4 % (36.0-66.0); Platelet Count 175 x10^3/uL (150-450); Red Blood Count 3.24 x10^6/uL (4.1-5.6); Red Cell Distribution Width 15.8 % (11.5-14.0)
[2022-07-07 06:54] LABS: ALBUMIN 4.1 g/dL (3.5-5.0); ANION GAP 15.1 MEQ/L (5-15); BILIRUBIN,TOTAL 1.4 mg/dL (0.2-1.3); Calcium 8.9 mg/dL (8.4-10.2); Creatinine 1 1.31 mg/dL (0.66-1.25); EST GLOMERULAR FILTRATION RATE 57.7 ML/MIN; Potassium 4.1 mmol/L (3.5-5.1)
--- NOTE | 2022-07-07 07:29 | PCM.NOTE ---
Date and Time: 07/07/22725 Subjective Assessment: Had one episode of black stool. Positive hemoccult, had recent colonoscopy, EGD by Dr Pedroza - Review of Systems Constitutional: No Fever, No Chills Eyes: No Symptoms Ears, Nose, & Throat: No Symptoms Respiratory: No Cough, No Short Of Breath Cardiac: No Chest Pain, No Edema, No Syncope Abdominal/Gastrointestinal: Abdominal Pain, Hematochezia, No Nausea, No Vomiting, No Diarrhea Genitourinary Symptoms: No Dysuria Musculoskeletal: No Back Pain, No Neck Pain Skin: No Rash Neurological: No Dizziness, No Focal Weakness, No Sensory Changes Psychological: No Symptoms Endocrine: No Symptoms Hematologic/Lymphatic: No Symptoms Immunological/Allergic: No Symptoms Objective Exam General Appearance: no apparent distress, alert Neurologic Exam: alert, oriented x 3, cooperative, normal mood/affect, nml cerebellar function, sensation nml, No motor deficits Skin Exam: normal color, warm, dry Eye Exam: PERRL, EOMI, eyes nml inspection Ears, Nose, Throat Exam: normal ENT inspection, pharynx normal, moist mucous membranes Neck Exam: normal inspection, non-tender, supple, full range of motion Respiratory Exam: normal breath sounds, lungs clear, No respiratory distress Cardiovascular Exam: regular rate/rhythm, normal heart sounds Gastrointestinal/Abdomen Exam: soft, No tenderness, No mass Extremity Exam: normal inspection, normal range of motion Back Exam: normal inspection, normal range of motion, No CVA tenderness, No vertebral tenderness Male Genitalia Exam: deferred Rectal Exam: deferred OBJECTIVE DATA Vital Signs: Vital Signs - 24 hr Temp Pulse Resp BP Pulse Ox 07/07/22 06:42 97.5 F 81 16 189/88 96 07/07/22 04:00 97.5 F 71 16 179/93 97 07/07/22 00:00 97.7 F 83 18 168/96 98 07/06/22 19:40 97.7 F 85 18 197/102 97 07/06/22 16:00 98.7 F 91 H 19 176/91 97 07/06/22 12:00 98.7 F 109 H 19 146/96 99 Pain Assessment - Last Documented Pain Intensity 2 Pain Scale Used 0-10 Pain Scale Intake and Output: Intake & Output 09/01/22 09/02/22 09/03/22 09/04/22 11:59 11:59 11:59 11:59 Intake Total 786 3727 Output Total 1100 100 Balance -314 3627 Weight 108 kg Lab Results: Lab Results-Last 24 Hours 07/06/22 07/06/22 07/06/22 Range/Units 00:48 07:39 09:35 WBC 6.1 (4.0-10.5) x10^3/uL RBC 3.47 L (4.1-5.6) x10^6/uL Hgb 9.1 L D (12.5-18.0) g/dL Hct 29.9 L (42-50) % MCV 86.2 (78-100) fL MCH 26.2 (26-32) pg MCHC 30.4 L (32-36) g/dL RDW 15.5 H (11.5-14.0) % Plt Count 180 (150-450) x10^3/uL MPV 9.1 (7.5-11.0) fL Gran % 61.5 (36.0-66.0) % Immature Gran % (Auto) 0.3 (0.00-0.4) % Nucleat RBC Rel Count 0.0 (0.00-0.1) % Eos # (Auto) 0.11 (0-0.5) x10^3/uL Immature Gran # (Auto) 0.02 (0.00-0.03) x10^3u/L Absolute Lymphs (auto) 1.79 (1.0-4.6) x10^3/uL Absolute Monos (auto) 0.41 (0.0-1.3) x10^3/uL Absolute Nucleated RBC 0.00 (0.00-0.01) x10^3u/L Lymphocytes % 29.4 (24.0-44.0) % Monocytes % 6.7 (0.0-12.0) % Eosinophils % 1.8 (0.00-5.0) % Basophils % 0.3 (0.0-0.4) % Absolute Granulocytes 3.73 (1.4-6.9) x10^3/uL Basophils # 0.02 (0-0.4) x10^3/uL Sodium (137-145) mmol/L Potassium (3.5-5.1) mmol/L Chloride (98-107) mmol/L Carbon Dioxide (22-30) mmol/L Anion Gap (5-15) MEQ/L BUN (9-20) mg/dL Creatinine (0.66-1.25) mg/dL Estimated GFR ML/MIN Glucose (74-106) mg/dL POC Glucometer 103 (74 to 106) mg/dL Calcium (8.4-10.2) mg/dL Total Bilirubin (0.2-1.3) mg/dL AST (17-59) U/L ALT (0-50) U/L Alkaline Phosphatase (38-126) U/L Serum Total Protein (6.3-8.2) g/dL Albumin (3.5-5.0) g/dL Stool Occult Blood POSITIVE A (NEGATIVE) 07/06/22 07/06/22 07/06/22 Range/Units 09:35 11:46 15:39 WBC (4.0-10.5) x10^3/uL RBC (4.1-5.6) x10^6/uL Hgb (12.5-18.0) g/dL Hct (42-50) % MCV (78-100) fL MCH (26-32) pg MCHC (32-36) g/dL RDW (11.5-14.0) % Plt Count (150-450) x10^3/uL MPV (7.5-11.0) fL Gran % (36.0-66.0) % Immature Gran % (Auto) (0.00-0.4) % Nucleat RBC Rel Count (0.00-0.1) % Eos # (Auto) (0-0.5) x10^3/uL Immature Gran # (Auto) (0.00-0.03) x10^3u/L Absolute Lymphs (auto) (1.0-4.6) x10^3/uL Absolute Monos (auto) (0.0-1.3) x10^3/uL Absolute Nucleated RBC (0.00-0.01) x10^3u/L Lymphocytes % (24.0-44.0) % Monocytes % (0.0-12.0) % Eosinophils % (0.00-5.0) % Basophils % (0.0-0.4) % Absolute Granulocytes (1.4-6.9) x10^3/uL Basophils # (0-0.4) x10^3/uL Sodium 136 L (137-145) mmol/L Potassium 5.0 (3.5-5.1) mmol/L Chloride 105 (98-107) mmol/L Carbon Dioxide 19 L (22-30) mmol/L Anion Gap 16.7 H (5-15) MEQ/L BUN 15 (9-20) mg/dL Creatinine 1.51 H (0.66-1.25) mg/dL Estimated GFR 48.9 ML/MIN Glucose 167 H (74-106) mg/dL POC Glucometer 125 H 120 H (74 to 106) mg/dL Calcium 9.0 (8.4-10.2) mg/dL Total Bilirubin 1.10 (0.2-1.3) mg/dL AST 27 (17-59) U/L ALT 20 (0-50) U/L Alkaline Phosphatase 115 (38-126) U/L Serum Total Protein 8.3 H (6.3-8.2) g/dL Albumin 4.3 (3.5-5.0) g/dL Stool Occult Blood (NEGATIVE) 07/06/22 Range/Units 20:31 WBC (4.0-10.5) x10^3/uL RBC (4.1-5.6) x10^6/uL Hgb (12.5-18.0) g/dL Hct (42-50) % MCV (78-100) fL MCH (26-32) pg MCHC (32-36) g/dL RDW (11.5-14.0) % Plt Count (150-450) x10^3/uL MPV (7.5-11.0) fL Gran % (36.0-66.0) % Immature Gran % (Auto) (0.00-0.4) % Nucleat RBC Rel Count (0.00-0.1) % Eos # (Auto) (0-0.5) x10^3/uL Immature Gran # (Auto) (0.00-0.03) x10^3u/L Absolute Lymphs (auto) (1.0-4.6) x10^3/uL Absolute Monos (auto) (0.0-1.3) x10^3/uL Absolute Nucleated RBC (0.00-0.01) x10^3u/L Lymphocytes % (24.0-44.0) % Monocytes % (0.0-12.0) % Eosinophils % (0.00-5.0) % Basophils % (0.0-0.4) % Absolute Granulocytes (1.4-6.9) x10^3/uL Basophils # (0-0.4) x10^3/uL Sodium (137-145) mmol/L Potassium (3.5-5.1) mmol/L Chloride (98-107) mmol/L Carbon Dioxide (22-30) mmol/L Anion Gap (5-15) MEQ/L BUN (9-20) mg/dL Creatinine (0.66-1.25) mg/dL Estimated GFR ML/MIN Glucose (74-106) mg/dL POC Glucometer 117 H (74 to 106) mg/dL Calcium (8.4-10.2) mg/dL Total Bilirubin (0.2-1.3) mg/dL AST (17-59) U/L ALT (0-50) U/L Alkaline Phosphatase (38-126) U/L Serum Total Protein (6.3-8.2) g/dL Albumin (3.5-5.0) g/dL Stool Occult Blood (NEGATIVE) Radiology Exams: Radiology Procedures Category Date Time Status ABDOMEN AND PELVIS W/0 CONTRAS [CT] Urgent Exams 07/06/22 15:56 Completed CHEST 1 VIEW (PORTABLE) Stat Exams 07/06/22 00:02 Completed SHOULDER Routine Exams 07/06/22 13:01 Completed Assessment/Plan (1) AYESHA (acute kidney injury) Current Visit: Yes Status: Acute Code(s): N17.9 - ACUTE KIDNEY FAILURE, UNSPECIFIED (2) Recurrent seizures Current Visit: Yes Status: Resolved Code(s): G40.909 - EPILEPSY, UNSP, NOT INTRACTABLE, WITHOUT STATUS EPILEPTICUS (3) Anemia Current Visit: Yes Status: Acute Qualifiers: Anemia type: iron deficiency Iron deficiency anemia type: chronic blood loss Qualified Code(s): D50.0 - Iron deficiency anemia secondary to blood loss (chronic) Code(s): D64.9 - ANEMIA, UNSPECIFIED (4) Elevated lactic acid level Current Visit: Yes Status: Resolved Code(s): R79.89 - OTHER SPECIFIED ABNORMAL FINDINGS OF BLOOD CHEMISTRY (5) Generalized weakness Current Visit: Yes Status: Acute Code(s): R53.1 - WEAKNESS (6) Liver cirrhosis Current Visit: No Status: Chronic (7) Type 2 diabetes mellitus Current Visit: No Status: Acute Qualifiers: 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
[2022-07-07] MEDS: Glucophage 500 MG PO SCH (08:28)
[2022-07-07] MEDS: PROTONIX 40 MG IV*** 80 MG in Sodium Chloride 0.9% 500 ML 500 ML IV SCH (08:28)
--- NOTE | 2022-07-07 08:40 | PCM.DS ---
Discharge Summary Date of Admission: 07/06/22 02:08 Admitting Physician: JOSE MANUEL AUSTIN Consults: Consults on Case 07/06/22 15:50 Consult Surgery ROUTINE Primary Care Provider: CAROLYN CHAVES Allergies Allergies [id number] Reductase Inhibitor Allergy (Intermediate, Verified 07/06/22 00:05) Blisters Tetracyclines Allergy (Verified 07/06/22 00:05) Hospital Summary - Hospital Course Hospital Course: Chief Complaint Diagnosis seizure Allergies Allergy/AdvReac Type Severity Reaction Status Date / Time Fflblma-[id number]-UgP Reductase Allergy Intermediate Blisters Verified 07/06/22 00:05 Inhibitor Tetracyclines Allergy Verified 07/06/22 00:05 Vital Signs (Last 24 hours) Temp Pulse Resp BP Pulse Ox 07/07/22 06:42 97.5 F 81 16 189/88 96 07/07/22 04:00 97.5 F 71 16 179/93 97 07/07/22 00:00 97.7 F 83 18 168/96 98 07/06/22 19:40 97.7 F 85 18 197/102 97 07/06/22 16:00 98.7 F 91 H 19 176/91 97 07/06/22 12:00 98.7 F 109 H 19 146/96 99 Home Medications Medication Instructions Recorded Confirmed Last Taken Type Aspirin EC 81 mg [Ecotrin 81 325 mg PO DAILY 07/06/22 07/06/22 07/05/22 08:00 History mg] Hydrocodone/Acetaminophen 1 tab PO Q6H PRN PRN 07/06/22 07/06/22 07/05/22 20:00 History [Hydrocodone-Acetamin 5-325 mg] Tizanidine HCl 4 mg [Zanaflex 4 4 mg PO Q8H PRN PRN 07/06/22 07/06/22 07/05/22 History MG] Famotidine 20 mg [Pepcid 20 20 mg PO BID 30 Days #60 tablet 07/07/22 Unknown Rx MG] PANTOPRAZOLE 40 mg Tablet 40 mg PO QAM #30 tab 07/07/22 Unknown Rx [Protonix 40MG Tablet] Current Medications Generic Name Dose Route Start Last Admin Trade Name Freq PRN Reason Stop Dose Admin Acetaminophen 650 mg 07/06/22 02:14 07/06/22 20:53 Acetaminophen 325 Mg Tablet PO 08/05/22 02:13 650 mg Q4H PRN PRN Administration PAIN AND/OR FEVER Hydrocodone Bitart/Acetaminophen 1 tab 07/06/22 12:08 07/07/22 00:57 Hydrocodone/Apap 5/325 Mg Tablet PO 07/11/22 12:07 1 tab Q6H PRN PRN Administration PAIN Aspirin 325 mg 07/07/22 10:00 Aspirin 325 Mg Tablet.Ec PO 08/06/22 09:59 DAILY SARA Cholecalciferol 10,000 unit 07/07/22 10:00 Cholecalciferol (Vitamin D3) 1000 Unit Tablet PO 08/06/22 09:59 DAILY SARA Duloxetine HCl 60 mg 07/06/22 12:15 07/06/22 20:51 Duloxetine Hcl 30 Mg Cap PO 08/05/22 12:14 60 mg BID SARA Administration Gabapentin 800 mg 07/06/22 13:00 07/06/22 20:51 Gabapentin 400 Mg Capsule PO 08/05/22 12:59 800 mg QID SARA Administration Glipizide 5 mg 07/06/22 12:15 07/06/22 20:51 Glipizide 5 Mg Tablet PO 08/05/22 12:14 5 mg BID SARA Administration Pantoprazole Sodium 80 mg/ 500 mls @ 50 mls/hr 07/06/22 01:00 07/07/22 08:28 Sodium Chloride IV 08/05/22 00:59 Not Given .Q10H SARA Sodium Chloride 1,000 mls @ 100 mls/hr 07/06/22 16:15 07/07/22 00:54 Sodium Chloride 0.9% 1000 Ml IV 08/05/22 16:14 100 mls/hr .Q10H SARA Administration Insulin Human Lispro 0 unit 07/06/22 02:14 Insulin Lispro 1 Unit SQ 08/05/22 02:13 UD PRN HYPERGLYCEMIA Levothyroxine Sodium 100 mcg 07/06/22 12:30 07/06/22 12:52 Levothyroxine Sodium 100 Mcg Tablet PO 08/05/22 12:29 100 mcg DAILY SARA Administration Levothyroxine Sodium 125 mcg 07/06/22 12:30 07/06/22 12:52 Levothyroxine Sodium 125 Mcg Tablet PO 08/05/22 12:29 125 mcg DAILY SARA Administration Metformin HCl 1,000 mg 07/06/22 17:00 07/07/22 08:28 Metformin Hcl 500 Mg Tablet PO 08/05/22 16:59 Not Given BIDWM SARA Metoprolol Tartrate 50 mg 07/06/22 12:30 07/06/22 20:50 Metoprolol Tartrate 50 Mg Tablet PO 08/05/22 12:29 50 mg BID SARA Administration Morphine Sulfate 2 mg 07/06/22 02:14 07/06/22 18:06 Morphine Sulfate 2 Mg/Ml Inj IV 07/11/22 02:13 2 mg Q4H PRN PRN Administration PAIN Ondansetron HCl 4 mg 07/06/22 02:14 Ondansetron Hcl 4 Mg/2 Ml Vial IV 08/05/22 02:13 Q6H PRN PRN NAUSEA/VOMITING Ondansetron HCl 4 mg 07/06/22 12:08 Zofran 4 Mg/Udtablet Orally Disintegrating PO 08/05/22 12:07 Q4H PRN PRN NAUSEA Tamsulosin HCl 0.4 mg 07/06/22 12:15 07/06/22 12:52 Tamsulosin Hcl 0.4 Mg Cap PO 08/05/22 12:14 0.4 mg DAILY SARA Administration Tizanidine HCl 4 mg 07/06/22 12:08 Tizanidine Hcl 4 Mg Tablet PO 08/05/22 12:07 Q8H PRN PRN MUSCLE SPASMS Discontinued Medications Generic Name Dose Route Start Last Admin Trade Name Freq PRN Reason Stop Dose Admin Albuterol/Ipratropium 3 ml 07/06/22 02:14 Ipratropium/Albuterol Sulfate 3 Ml Ampul.Neb IH 08/05/22 02:13 Q4HPRN PRN SHORTNESS OF BREATH/WHEEZING Levetiracetam 1,000 mg/ 110 mls @ 400 mls/hr 07/06/22 00:02 07/06/22 00:25 Dextrose IV 07/06/22 00:18 400 mls/hr STAT ONE Administration Sodium Chloride 1,000 mls @ 999 mls/hr 07/06/22 00:02 07/06/22 00:26 Sodium Chloride 0.9% 1000 Ml IV 07/06/22 01:02 999 mls/hr .Q1H1M STA Administration Dextrose Confirm 07/06/22 00:24 D5w 100ml Mini Bag 100 Ml Administered 07/06/22 00:25 Dose 100 mls @ ud IV .STK-MED ONE Sodium Chloride Confirm 07/06/22 00:28 Sodium Chloride 0.9% 1000 Ml Administered 07/06/22 00:29 Dose 1,000 mls @ ud .ROUTE .STK-MED ONE Sodium Chloride Confirm 07/06/22 01:25 Sodium Chloride 0.9% 500 Ml Administered 07/06/22 01:26 Dose 500 mls @ ud IV .STK-MED ONE Sodium Chloride 1,000 mls @ 75 mls/hr 07/06/22 02:14 07/06/22 15:27 Sodium Chloride 0.9% 1000 Ml IV 08/05/22 02:13 Not Given .[id number] SARA Levetiracetam Confirm 07/06/22 00:24 Levetiracetam 500 Mg/5 Ml Vial Administered 07/06/22 00:25 Dose 500 mg .ROUTE .STK-MED ONE Levetiracetam Confirm 07/06/22 00:28 Levetiracetam 500 Mg/5 Ml Vial Administered 07/06/22 00:29 Dose 500 mg .ROUTE .STK-MED ONE Non-Formulary Medication 40 mg 07/07/22 10:00 Omeprazole [Omeprazole] PO 08/06/22 09:59 DAILY SARA Ondansetron HCl 4 mg 07/06/22 00:02 07/06/22 00:26 Ondansetron Hcl 4 Mg/2 Ml Vial IV 07/06/22 00:03 4 mg STAT ONE Administration Ondansetron HCl Confirm 07/06/22 00:22 Ondansetron Hcl 4 Mg/2 Ml Vial Administered 07/06/22 00:23 Dose 4 mg .ROUTE .STK-MED ONE Pantoprazole Sodium 40 mg 07/06/22 00:48 07/06/22 01:26 Pantoprazole 40 Mg Vial IV 07/06/22 00:49 40 mg STAT ONE Administration Pantoprazole Sodium Confirm 07/06/22 01:24 Pantoprazole 40 Mg Vial Administered 07/06/22 01:25 Dose 40 mg IV .STK-MED ONE Intake & Output (Last 24 hours) 07/04/22 07/05/22 07/06/22 07/07/22 11:59 11:59 11:59 11:59 Intake Total 786 3727 Output Total 1100 100 Balance -314 3627 Weight 108 kg Laboratory Results (Last 24 hours) 07/07/22 07/07/22 07/07/22 07:27 05:54 05:54 WBC 5.0 RBC 3.24 L Hgb 8.4 L Hct 27.1 L MCV 83.6 MCH 25.9 L MCHC 31.0 L RDW 15.8 H Plt Count 175 MPV 9.5 Gran % 59.4 Immature Gran % (Auto) 0.2 Nucleat RBC Rel Count 0.0 Eos # (Auto) 0.14 Immature Gran # (Auto) 0.01 Absolute Lymphs (auto) 1.42 Absolute Monos (auto) 0.44 Absolute Nucleated RBC 0.00 Lymphocytes % 28.4 Monocytes % 8.8 Eosinophils % 2.8 Basophils % 0.4 Absolute Granulocytes 2.97 Basophils # 0.02 Sodium 137 Potassium 4.1 Chloride 106 Carbon Dioxide 19 L Anion Gap 15.1 H BUN 13 Creatinine 1.31 H Estimated GFR 57.7 Glucose 110 H POC Glucometer 87 Calcium 8.9 Total Bilirubin 1.40 H AST 24 ALT 16 Alkaline Phosphatase 106 Serum Total Protein 8.0 Albumin 4.1 Stool Occult Blood 07/06/22 07/06/22 07/06/22 20:31 15:39 11:46 WBC RBC Hgb Hct MCV MCH MCHC RDW Plt Count MPV Gran % Immature Gran % (Auto) Nucleat RBC Rel Count Eos # (Auto) Immature Gran # (Auto) Absolute Lymphs (auto) Absolute Monos (auto) Absolute Nucleated RBC Lymphocytes % Monocytes % Eosinophils % Basophils % Absolute Granulocytes Basophils # Sodium Potassium Chloride Carbon Dioxide Anion Gap BUN Creatinine Estimated GFR Glucose POC Glucometer 117 H 120 H 125 H Calcium Total Bilirubin AST ALT Alkaline Phosphatase Serum Total Protein Albumin Stool Occult Blood 07/06/22 07/06/22 07/06/22 09:35 09:35 00:48 WBC 6.1 RBC 3.47 L Hgb 9.1 L D Hct 29.9 L MCV 86.2 MCH 26.2 MCHC 30.4 L RDW 15.5 H Plt Count 180 MPV 9.1 Gran % 61.5 Immature Gran % (Auto) 0.3 Nucleat RBC Rel Count 0.0 Eos # (Auto) 0.11 Immature Gran # (Auto) 0.02 Absolute Lymphs (auto) 1.79 Absolute Monos (auto) 0.41 Absolute Nucleated RBC 0.00 Lymphocytes % 29.4 Monocytes % 6.7 Eosinophils % 1.8 Basophils % 0.3 Absolute Granulocytes 3.73 Basophils # 0.02 Sodium 136 L Potassium 5.0 Chloride 105 Carbon Dioxide 19 L Anion Gap 16.7 H BUN 15 Creatinine 1.51 H Estimated GFR 48.9 Glucose 167 H POC Glucometer Calcium 9.0 Total Bilirubin 1.10 AST 27 ALT 20 Alkaline Phosphatase 115 Serum Total Protein 8.3 H Albumin 4.3 Stool Occult Blood POSITIVE A Orders (Last 24 hours) Category Date Time Status DC TELE [Discontinue Telemetry] ROUTINE Care 07/06/22 18:38 Active Telemetry q6h Care 07/06/22 18:34 Completed Consult Surgery ROUTINE Cons 07/06/22 15:50 Active House Regular Diet Diet 07/07/22 Breakfast Active NPO Diet 07/06/22 15:52 Completed Discharge Routine Discharge 07/07/22 Ordered ABDOMEN AND PELVIS W/0 CONTRAS [CT] Urgent Exams 07/06/22 15:56 Completed SHOULDER Routine Exams 07/06/22 13:01 Completed CBC W DIFF AM.LAB Lab 07/06/22 09:35 Completed CBC W DIFF AM.LAB Lab 07/07/22 05:54 Completed CMP AM.LAB Lab 07/06/22 09:35 Completed CMP AM.LAB Lab 07/07/22 05:54 Completed POCT GLUCOSE Stat Lab 07/06/22 07:39 Completed POCT GLUCOSE Stat Lab 07/06/22 11:46 Completed POCT GLUCOSE Stat Lab 07/06/22 15:39 Completed POCT GLUCOSE Stat Lab 07/06/22 20:31 Completed POCT GLUCOSE Stat Lab 07/07/22 07:27 Completed Aspirin EC 325 mg [Ecotrin 325 MG] Med 07/07/22 10:00 Active 325 mg PO DAILY Cholecalciferol (Vitamin D3) [Vitamin D] Med 07/07/22 10:00 Active 10,000 unit PO DAILY Duloxetine HCl 30 mg [Cymbalta 30 MG Capsule] Med 07/06/22 12:15 Active 60 mg PO BID Gabapentin [Neurontin ] Med 07/06/22 13:00 Active 800 mg PO QID Glipizide 5 mg [Glucotrol 5 MG] Med 07/06/22 12:15 Active 5 mg PO BID Hydrocodone/APAP 5/325 [Rainier 5/325 mg] Med 07/06/22 12:08 Active 1 tab PO Q6H PRN PRN Levothyroxine Sodium 100 Mcg [Synthroid 100 Mcg] Med 07/06/22 12:30 Active 100 mcg PO DAILY Levothyroxine Sodium 125 Mcg [Synthroid 125 Mcg] Med 07/06/22 12:30 Active 125 mcg PO DAILY Metformin HCl 500 mg [Glucophage 500 MG] Med 07/06/22 17:00 Active 1,000 mg PO BIDWM Metoprolol Tartrate 50 mg [Lopressor 50 MG] Med 07/06/22 12:30 Active 50 mg PO BID NaCl 0.9% 1000 ml [Sodium Chloride 0.9% 1000 ML] 1,000 Med 07/06/22 16:15 Active ml IV 100 mls/hr Omeprazole [Omeprazole] Med 07/07/22 10:00 Discontinued 40 mg PO DAILY Ondansetron ODT 4 MG [Zofran Odt 4 mg] Med 07/06/22 12:08 Active 4 mg PO Q4H PRN PRN Tamsulosin HCl 0.4 mg [Flomax 0.4 MG] Med 07/06/22 12:15 Active 0.4 mg PO DAILY Tizanidine HCl 4 mg [Zanaflex 4 MG] Med 07/06/22 12:08 Active 4 mg PO Q8H PRN PRN Patient Care Notes (Last 24 hours) 07/06/22 19:41 [employer] Note by Mary Lou Pryor RN is aware of pts BP being 197/102 Initialized on 07/06/22 19:41 - END OF NOTE 07/06/22 15:50 Nursing Note by Montserrat Perez dr by phone and updated on consult. new orders for ct abd and pelvis with po and iv contrast. Initialized on 07/06/22 15:50 - END OF NOTE 07/06/22 15:45 Nursing Note by Brittani Cartwright Dr.B, Lynch called back and spoke with Montserrat/RN about consult. Initialized on 07/06/22 15:45 - END OF NOTE 07/06/22 15:42 Nursing Note by Brittani Cartwright I called surgery consult to office spoke with answering service. 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 Initialized on 07/06/22 15:42 - END OF NOTE Patient was admitted initially with a dark tarry stool. Patient was given 2 units of blood. Patient has 1 more episode of dark tarry stool. Patient hemoglobin initially came up to 9.1 and then it dropped to 8.4. But patient was able to eat and drink without any problem. Patient recently had a upper GI GI gastroduodenoscopy as well as colonoscopy. Biopsies were done and the results are still pending. Dr. Hinds the surgeon did colonoscopy and EGD. Dr. Miller was consulted. He ordered a CT abdomen and pelvis which did not reveal any new significant findings. Patient has been feeling much better. I discussed with patient about his hemoglobin as well as his colonoscopy and EGD report. I strongly advised him to get the complete blood count done on Friday or Friday and follow-up with Dr. Chaves on . He is also advised to follow-up with Dr. Hinsd for further evaluation of his gastrointestinal bleeding. He is also advised that if he continues to have a more and more dark tarry stool he needs to come back to the emergency room. Patient understood all the verbalize instruction and at the time of instruction nurse was present. Protonix 40 mg daily is continued as well as famotidine 20 mg twice a day is started. Patient is advised to stop aspirin or any nonsteroidal anti- inflammatory till further instruction. - Vitals & Intake/Output Vital Signs: Vital Signs Temperature 97.5 F 07/07/22 06:42 Pulse Rate 81 07/07/22 06:42 Respiratory Rate 16 07/07/22 06:42 Blood Pressure 189/88 07/07/22 06:42 O2 Sat by Pulse Oximetry 96 07/07/22 06:42 Intake & Output: Intake & Output 07/04/22 07/05/22 07/06/22 07/07/22 11:59 11:59 11:59 11:59 Intake Total 786 3727 Output Total 1100 100 Balance -314 3627 Weight 108 kg - Lab Result Diagrams: 07/07/22 05:54 07/07/22 05:54 Lab Results-Last 24 Hrs: Lab Results-Last 24 Hours 07/06/22 07/06/22 07/06/22 Range/Units 00:48 09:35 09:35 WBC 6.1 (4.0-10.5) x10^3/uL RBC 3.47 L (4.1-5.6) x10^6/uL Hgb 9.1 L D (12.5-18.0) g/dL Hct 29.9 L (42-50) % MCV 86.2 (78-100) fL MCH 26.2 (26-32) pg MCHC 30.4 L (32-36) g/dL RDW 15.5 H (11.5-14.0) % Plt Count 180 (150-450) x10^3/uL MPV 9.1 (7.5-11.0) fL Gran % 61.5 (36.0-66.0) % Immature Gran % (Auto) 0.3 (0.00-0.4) % Nucleat RBC Rel Count 0.0 (0.00-0.1) % Eos # (Auto) 0.11 (0-0.5) x10^3/uL Immature Gran # (Auto) 0.02 (0.00-0.03) x10^3u/L Absolute Lymphs (auto) 1.79 (1.0-4.6) x10^3/uL Absolute Monos (auto) 0.41 (0.0-1.3) x10^3/uL Absolute Nucleated RBC 0.00 (0.00-0.01) x10^3u/L Lymphocytes % 29.4 (24.0-44.0) % Monocytes % 6.7 (0.0-12.0) % Eosinophils % 1.8 (0.00-5.0) % Basophils % 0.3 (0.0-0.4) % Absolute Granulocytes 3.73 (1.4-6.9) x10^3/uL Basophils # 0.02 (0-0.4) x10^3/uL Sodium 136 L (137-145) mmol/L Potassium 5.0 (3.5-5.1) mmol/L Chloride 105 (98-107) mmol/L Carbon Dioxide 19 L (22-30) mmol/L Anion Gap 16.7 H (5-15) MEQ/L BUN 15 (9-20) mg/dL Creatinine 1.51 H (0.66-1.25) mg/dL Estimated GFR 48.9 ML/MIN Glucose 167 H (74-106) mg/dL POC Glucometer (74 to 106) mg/dL Calcium 9.0 (8.4-10.2) mg/dL Total Bilirubin 1.10 (0.2-1.3) mg/dL AST 27 (17-59) U/L ALT 20 (0-50) U/L Alkaline Phosphatase 115 (38-126) U/L Serum Total Protein 8.3 H (6.3-8.2) g/dL Albumin 4.3 (3.5-5.0) g/dL Stool Occult Blood POSITIVE A (NEGATIVE) 07/06/22 07/06/22 07/06/22 Range/Units 11:46 15:39 20:31 WBC (4.0-10.5) x10^3/uL RBC (4.1-5.6) x10^6/uL Hgb (12.5-18.0) g/dL Hct (42-50) % MCV (78-100) fL MCH (26-32) pg MCHC (32-36) g/dL RDW (11.5-14.0) % Plt Count (150-450) x10^3/uL MPV (7.5-11.0) fL Gran % (36.0-66.0) % Immature Gran % (Auto) (0.00-0.4) % Nucleat RBC Rel Count (0.00-0.1) % Eos # (Auto) (0-0.5) x10^3/uL Immature Gran # (Auto) (0.00-0.03) x10^3u/L Absolute Lymphs (auto) (1.0-4.6) x10^3/uL Absolute Monos (auto) (0.0-1.3) x10^3/uL Absolute Nucleated RBC (0.00-0.01) x10^3u/L Lymphocytes % (24.0-44.0) % Monocytes % (0.0-12.0) % Eosinophils % (0.00-5.0) % Basophils % (0.0-0.4) % Absolute Granulocytes (1.4-6.9) x10^3/uL Basophils # (0-0.4) x10^3/uL Sodium (137-145) mmol/L Potassium (3.5-5.1) mmol/L Chloride (98-107) mmol/L Carbon Dioxide (22-30) mmol/L Anion Gap (5-15) MEQ/L BUN (9-20) mg/dL Creatinine (0.66-1.25) mg/dL Estimated GFR ML/MIN Glucose (74-106) mg/dL POC Glucometer 125 H 120 H 117 H (74 to 106) mg/dL Calcium (8.4-10.2) mg/dL Total Bilirubin (0.2-1.3) mg/dL AST (17-59) U/L ALT (0-50) U/L Alkaline Phosphatase (38-126) U/L Serum Total Protein (6.3-8.2) g/dL Albumin (3.5-5.0) g/dL Stool Occult Blood (NEGATIVE) 07/07/22 07/07/22 07/07/22 Range/Units 05:54 05:54 07:27 WBC 5.0 (4.0-10.5) x10^3/uL RBC 3.24 L (4.1-5.6) x10^6/uL Hgb 8.4 L (12.5-18.0) g/dL Hct 27.1 L (42-50) % MCV 83.6 (78-100) fL MCH 25.9 L (26-32) pg MCHC 31.0 L (32-36) g/dL RDW 15.8 H (11.5-14.0) % Plt Count 175 (150-450) x10^3/uL MPV 9.5 (7.5-11.0) fL Gran % 59.4 (36.0-66.0) % Immature Gran % (Auto) 0.2 (0.00-0.4) % Nucleat RBC Rel Count 0.0 (0.00-0.1) % Eos # (Auto) 0.14 (0-0.5) x10^3/uL Immature Gran # (Auto) 0.01 (0.00-0.03) x10^3u/L Absolute Lymphs (auto) 1.42 (1.0-4.6) x10^3/uL Absolute Monos (auto) 0.44 (0.0-1.3) x10^3/uL Absolute Nucleated RBC 0.00 (0.00-0.01) x10^3u/L Lymphocytes % 28.4 (24.0-44.0) % Monocytes % 8.8 (0.0-12.0) % Eosinophils % 2.8 (0.00-5.0) % Basophils % 0.4 (0.0-0.4) % Absolute Granulocytes 2.97 (1.4-6.9) x10^3/uL Basophils # 0.02 (0-0.4) x10^3/uL Sodium 137 (137-145) mmol/L Potassium 4.1 (3.5-5.1) mmol/L Chloride 106 (98-107) mmol/L Carbon Dioxide 19 L (22-30) mmol/L Anion Gap 15.1 H (5-15) MEQ/L BUN 13 (9-20) mg/dL Creatinine 1.31 H (0.66-1.25) mg/dL Estimated GFR 57.7 ML/MIN Glucose 110 H (74-106) mg/dL POC Glucometer 87 (74 to 106) mg/dL Calcium 8.9 (8.4-10.2) mg/dL Total Bilirubin 1.40 H (0.2-1.3) mg/dL AST 24 (17-59) U/L ALT 16 (0-50) U/L Alkaline Phosphatase 106 (38-126) U/L Serum Total Protein 8.0 (6.3-8.2) g/dL Albumin 4.1 (3.5-5.0) g/dL Stool Occult Blood (NEGATIVE) Micro Results-Entire Visit: Accuchecks Date 07/07/22 Date 07/06/22 Time 07:45 Time 21:00 - Radiology Exams Ordered Rad Exams-Entire Visit: Radiology Procedures Category Date Time Status ABDOMEN AND PELVIS W/0 CONTRAS [CT] Urgent Exams 07/06/22 15:56 Completed CHEST 1 VIEW (PORTABLE) Stat Exams 07/06/22 00:02 Completed SHOULDER Routine Exams 07/06/22 13:01 Completed Discharge Exam General Appearance: no apparent distress, alert Neurologic Exam: alert, oriented x 3, cooperative, normal mood/affect, nml cerebellar function, sensation nml, No motor deficits Eye Exam: PERRL, EOMI, eyes nml inspection Ears, Nose, Throat Exam: normal ENT inspection, pharynx normal, moist mucous membranes Neck Exam: normal inspection, non-tender, supple, full range of motion Respiratory Exam: normal breath sounds, lungs clear, No respiratory distress Cardiovascular Exam: regular rate/rhythm, normal heart sounds Gastrointestinal/Abdomen Exam: soft, No tenderness, No mass Male Genitalia Exam: deferred Rectal Exam: deferred Back Exam: normal inspection, normal range of motion, No CVA tenderness, No vertebral tenderness Extremity Exam: normal inspection, normal range of motion Skin Exam: normal color, warm, dry Final Diagnosis/Problem List - Final Discharge Diagnosis/Problem (1) AYESHA (acute kidney injury) Current Visit: Yes Status: Resolved Code(s): N17.9 - ACUTE KIDNEY FAILURE, UNSPECIFIED (2) Recurrent seizures Current Visit: Yes Status: Resolved Assessment & Plan: Patient did not have any seizure activity during hospitalization. Although patient is informed that he will need further outpatient work-up for which he should talk to Dr. Chaves when he goes and see him in next 2 to 3 days. He will need further neurological work-up to determine about his seizure activity. Code(s): G40.909 - EPILEPSY, UNSP, NOT INTRACTABLE, WITHOUT STATUS EPILEPTICUS (3) Anemia Current Visit: Yes Status: Acute Assessment & Plan: Patient had 1 episode of dark tarry stool during hospitalization. Patient has undergone EGD and colonoscopy recently. At this point of time according to the surgeon he will require capsule endoscopy to rule out other places of bleeding especially in small intestine. This procedure can be done as an outpatient. Patient is advised to follow-up with her doctor chai for that purpose. Code(s): D64.9 - ANEMIA, UNSPECIFIED (4) Elevated lactic acid level Current Visit: Yes Status: Resolved Code(s): R79.89 - OTHER SPECIFIED ABNORMAL FINDINGS OF BLOOD CHEMISTRY (5) Generalized weakness Current Visit: Yes Status: Resolved Code(s): R53.1 - WEAKNESS (6) Liver cirrhosis Current Visit: No Status: Chronic (7) Type 2 diabetes mellitus Current Visit: No Status: Acute (8) Uncontrolled hypertension Current Visit: Yes Status: Chronic Code(s): I10 - ESSENTIAL (PRIMARY) HYPERTENSION - Discharge Discharge Date: 07/07/22 Disposition: Home, Self-Care Condition: Stable Prescriptions: New Famotidine 20 mg [Pepcid 20 MG] 20 mg PO BID 30 Days #60 tablet PANTOPRAZOLE 40 mg Tablet [Protonix 40MG Tablet] 40 mg PO QAM #30 tab Continue Metoprolol Tartrate 50 mg [Lopressor 50 MG] 50 mg PO BID Metformin HCl 1,000 mg PO BID Gabapentin [Neurontin] 800 mg PO QID Tamsulosin HCl 0.4 mg [Flomax 0.4 MG] 0.4 mg PO DAILY glipiZIDE [Glipizide] 5 mg PO BID Ondansetron [Ondansetron Odt ] 4 mg PO Q4-6HPRN PRN PRN Reason: Nausea Duloxetine HCl 30 mg [Cymbalta 30 MG Capsule] 60 mg PO BID Omeprazole 40 mg PO DAILY Cholecalciferol (Vitamin D3) [Vitamin D] 10,000 iu PO DAILY Levothyroxine Sodium [Levothyroxine] 225 mcg PO DAILY Hydrocodone/Acetaminophen [Hydrocodone-Acetamin 5-325 mg] 1 tab PO Q6H PRN PRN PRN Reason: Pain Tizanidine HCl 4 mg [Zanaflex 4 MG] 4 mg PO Q8H PRN PRN PRN Reason: Muscle Spasms Discontinued Aspirin EC 81 mg [Ecotrin 81 mg] 325 mg PO DAILY Outpatient Orders: CBC Time Frame: 07/09/22, Facility: [facility], Location: LABORATORY Instructions: Seizures, Adult (DC), Gastrointestinal Bleeding (DC) Additional Instructions: -COME TO HOSPITAL ON FRIDAY FOR LAB WORK. -FOLLOW UP WITH DR CHAVES ON FRIDAY OR FRIDAY -FOLLOW UP WITH NEUROLOGIST (IN [place]) PREVIOUSLY ARRANGED BY DR CHAVES. Follow up with: CAROLYN CHAVES MD [Primary Care Provider] - Call for Appointment (FOLLOW UP WITH DR CHAVES ON FRIDAY OR FRIDAY.) AUDI RODRÍGUEZ [COURTESY STAFF] - Call for Appointment
[2022-07-07] MEDS ORDERED: NON-FORMULARY ITEM (Omeprazole [Omeprazole] 40 MG Capsule.Dr) PO SCH (10:00)
[2022-07-07] MEDS ORDERED: ECOTRIN 81 MG PO SCH (10:00)
[2022-07-07] MEDS ORDERED: Ecotrin 325 MG PO SCH (10:00)
[2022-07-07] MEDS ORDERED: LEVOTHYROXINE SODIUM 125 MCG PO SCH (10:00)
[2022-07-07] MEDS ORDERED: VITAMIN D PO SCH (10:00)
== END 2022-07-07 09:29 | disposition home or self-care (01) ==
LOC: ED 23:42 → MED SURG 07-06 02:08
PROVIDERS: ADMIT General Practice; ATTEND Family Medicine
DX: N17.9 Acute kidney failure, unspecified (principal); G40.909 Epilepsy, unspecified, not intractable, without status epilepticus; D64.9 Anemia, unspecified; R79.89 Other specified abnormal findings of blood chemistry; R53.1 Weakness; K74.60 Unspecified cirrhosis of liver; E11.9 Type 2 diabetes mellitus without complications; I10 Essential (primary) hypertension; E78.5 Hyperlipidemia, unspecified; Z79.899 Other long term (current) drug therapy; Z20.828 Contact with and (suspected) exposure to other viral communicable diseases
CPT/HCPCS: 0241U; 36415; 36430; 71045; 73030; 74176; 80053; 81015; 82947; 83605; 85025; 85610; 85730; 86850; 86900; 86901; 86922; 93041; 93268; 96374; 96375; 99285; G0328; G0378; P9016; 82274; J1953; J2270; J2405; A9270-GY

== ENCOUNTER 2022-08-08 12:16 | Emergency (ER) | payer MEDICARE ==
--- NOTE | 2022-08-08 12:48 | ERPHSYRPT ---
- History of Present Illness Time Seen by Provider: 08/08/22 12:30 Source: patient Exam Limitations: no limitations Patient Subjective Stated Complaint: pt here for low b/p today at home, wanted him to be checked out because he is to have surg 07/10/2022 on right foot, pt only oc is weakness, he has had several falls recently with no injury, Triage Nursing Assessment: pt alert, arrived per wc, resp easy, face mask in place, skin w/d/p. has boot to right foot, has holter monitor in place, Physician History: Patient is a 67-year-old male presents to our emergency department for evaluation. Patient's checked his blood pressure at home and observe it to be low. She became concerned. She called primary care's office who advised her to come to our ED for evaluation. Patient has a history of anemia. Patient is currently scheduled for toe amputation tomorrow. I spoke to Dr. Becerra. We will obtain laboratory work-up to assure that patient is not anemic for surgery tomorrow. Patient has fallen at home. However patient is wearing a large right lower extremity boot in preparation for his surgery. He has no complaints. Patient denies weakness numbness tingling. Patient symptoms are minimal at this time. He is resting in bed comfortably. Without any complaints. at bedside. They voiced no other complaints or concerns at this time. Portions of this note were created with voice recognition technology. There may be grammatical, spelling, punctuation or sound alike errors Timing/Duration: today Severity: moderate Modifying Factors: Improves With: nothing Associated Symptoms: denies symptoms Allergies/Adverse Reactions: Dbsvtyc-[id number]-EpA Reductase Inhibitor Allergy (Intermediate, Verified 08/08/22 12:29) Blisters Tetracyclines Allergy (Verified 08/08/22 12:29) Home Medications: Gabapentin [Neurontin] 800 mg PO QID 05/15/17 [History] Metformin HCl 1,000 mg PO BID 05/15/17 [History] Metoprolol Tartrate 50 mg [Lopressor 50 MG] 25 mg PO BID 05/15/17 [History] Tamsulosin HCl 0.4 mg [Flomax 0.4 MG] 0.4 mg PO DAILY 11/17/19 [History] glipiZIDE [Glipizide] 5 mg PO BID 05/31/21 [History] Duloxetine HCl 30 mg [Cymbalta 30 MG Capsule] 60 mg PO BID 06/06/22 [History] Levothyroxine Sodium [Levothyroxine] 225 mcg PO DAILY 06/14/22 [History] Hydrocodone/Acetaminophen [Hydrocodone-Acetamin 5-325 mg] 1 tab PO Q6H PRN PRN 07/06/22 [History] Tizanidine HCl 4 mg [Zanaflex 4 MG] 4 mg PO Q8H PRN PRN 07/06/22 [History] Famotidine 20 mg [Pepcid 20 MG] 40 mg PO DAILY 07/25/22 [History] Levetiracetam [Keppra Xr] 500 mg PO BID 07/25/22 [History] Hx Tetanus, Diphtheria Vaccination/Date Given: No Hx Influenza Vaccination/Date Given: Yes Hx Pneumococcal Vaccination/Date Given: No Immunizations Up to Date: Yes Travel Risk - International Travel Have you traveled outside of the country in past 3 weeks: No - Coronavirus Screening Are you exhibiting any of the following symptoms?: No Symptoms: Shortness of Breath - Vaccine Status Have you recieved a Covid-19 vaccination: No Mess Cook: Motor2 - Vaccination Dates Date of 2cond Vaccination (if applicable): 12/2020 - Review of Systems Constitutional: No Symptoms, No Fever, No Chills Eyes: No Symptoms Ears, Nose, & Throat: No Symptoms Respiratory: No Symptoms, No Cough, No Dyspnea Cardiac: No Symptoms, No Chest Pain, No Edema, No Syncope Abdominal/Gastrointestinal: No Symptoms, No Abdominal Pain, No Nausea, No Vomiting, No Diarrhea Genitourinary Symptoms: No Symptoms, No Dysuria Musculoskeletal: No Symptoms, No Back Pain, No Neck Pain Skin: No Symptoms, No Rash Neurological: No Symptoms, No Dizziness, No Focal Weakness, No Sensory Changes Psychological: No Symptoms Endocrine: No Symptoms Hematologic/Lymphatic: No Symptoms Immunological/Allergic: No Symptoms All Other Systems: Reviewed and Negative - Past Medical History Pertinent Past Medical History: Yes Neurological History: Peripheral Neuropathy, Seizures, Stroke, Other ENT History: Cataracts Cardiac History: High Cholesterol, Hypertension Respiratory History: Sleep Apnea, Other Endocrine Medical History: Diabetes Type II, Other Musculoskeletal History: Osteoarthritis GI Medical History: No Pertinent History, GERD, Other History: No Pertinent History Psycho-Social History: No Pertinent History Male Reproductive Disorders: Prostate Problems Other Medical History: Hx of CVA 2020. Neuropathy upper and lowerr extremeties, fatty liver. Former smoker, quit 10 days ago. anemia, blood transfusion - Past Surgical History Past Surgical History: Yes Neuro Surgical History: No Pertinent History Cardiac: No Pertinent History Respiratory: No Pertinent History Gastrointestinal: No Pertinent History Genitourinary: No Pertinent History Musculoskeletal: Orthopedic Surgery, Other Male Surgical History: No Pertinent History Other Surgical History: back surgery- spinal fusion, 2 rods. reconstructive nemo fredi rt foot - Social History Smoking Status: Former smoker How long have you smoked: 45 Exposure to second hand smoke: No Drug Use: none Patient Lives Alone: Yes - Nursing Vital Signs Nursing Vital Signs: Initial Vital Signs Temperature 97.7 F 08/08/22 12:27 Pulse Rate 80 08/08/22 12:27 Respiratory Rate 18 08/08/22 12:27 Blood Pressure 129/68 08/08/22 12:27 O2 Sat by Pulse Oximetry 97 08/08/22 12:27 Pain Scale Pain Intensity 6 - Physical Exam General Appearance: no apparent distress, alert Eye Exam: PERRL/EOMI, eyes nml inspection Ears, Nose, Throat Exam: normal ENT inspection, TMs normal, pharynx normal, moist mucous membranes Neck Exam: normal inspection, non-tender, supple, full range of motion Respiratory Exam: normal breath sounds, lungs clear, No respiratory distress Cardiovascular Exam: regular rate/rhythm, normal heart sounds, normal peripheral pulses Gastrointestinal/Abdomen Exam: soft, normal bowel sounds, No tenderness, No mass Back Exam: normal inspection, normal range of motion, No CVA tenderness, No vertebral tenderness Extremity Exam: normal inspection, normal range of motion, pelvis stable, other (Right lower extremity walking boot) Neurologic Exam: alert, oriented x 3, cooperative, normal mood/affect, nml cerebellar function, nml station & gait, sensation nml, No motor deficits Skin Exam: normal color, warm, dry, No rash Lymphatic Exam: No adenopathy SpO2 Interpretation: normal SpO2: 97 O2 Delivery: Room Air - Course Nursing assessment & vital signs reviewed: Yes Ordered Tests: Active Orders 24 hr Category Date Time Status IV Insertion STAT Care 08/08/22 12:43 Active CBC W DIFF Stat Lab 08/08/22 12:52 Completed CMP Stat Lab 08/08/22 12:52 Completed Lab/Rad Data: Laboratory Result Diagrams 08/08/22 12:52 08/08/22 12:52 Laboratory Results 08/08/22 08/08/22 Range/Units 12:52 12:52 WBC 5.8 (4.0-10.5) x10^3/uL RBC 3.80 L (4.1-5.6) x10^6/uL Hgb 10.5 L (12.5-18.0) g/dL Hct 34.7 L (42-50) % MCV 91.3 (78-100) fL MCH 27.6 (26-32) pg MCHC 30.3 L (32-36) g/dL RDW 18.5 H (11.5-14.0) % Plt Count 156 (150-450) x10^3/uL MPV 9.3 (7.5-11.0) fL Gran % 56.2 (36.0-66.0) % Immature Gran % (Auto) 0.2 (0.00-0.4) % Nucleat RBC Rel Count 0.0 (0.00-0.1) % Eos # (Auto) 0.09 (0-0.5) x10^3/uL Immature Gran # (Auto) 0.01 (0.00-0.03) x10^3u/L Absolute Lymphs (auto) 1.82 (1.0-4.6) x10^3/uL Absolute Monos (auto) 0.59 (0.0-1.3) x10^3/uL Absolute Nucleated RBC 0.00 (0.00-0.01) x10^3u/L Lymphocytes % 31.3 (24.0-44.0) % Monocytes % 10.1 (0.0-12.0) % Eosinophils % 1.5 (0.00-5.0) % Basophils % 0.7 (0.0-0.4) % Absolute Granulocytes 3.27 (1.4-6.9) x10^3/uL Basophils # 0.04 (0-0.4) x10^3/uL Sodium 139 (137-145) mmol/L Potassium 4.8 (3.5-5.1) mmol/L Chloride 105 (98-107) mmol/L Carbon Dioxide 25 (22-30) mmol/L Anion Gap 14.7 (5-15) MEQ/L BUN 17 (9-20) mg/dL Creatinine 1.35 H (0.66-1.25) mg/dL Estimated GFR 55.7 ML/MIN Glucose 69 L (74-106) mg/dL Calcium 9.5 (8.4-10.2) mg/dL Total Bilirubin 1.10 (0.2-1.3) mg/dL AST 26 (17-59) U/L ALT 22 (0-50) U/L Alkaline Phosphatase 116 (38-126) U/L Serum Total Protein 8.1 (6.3-8.2) g/dL Albumin 4.2 (3.5-5.0) g/dL - Progress Progress: improved Progress Note: Patient reassessed. He feels well. Patient's blood pressure stable in the 120s systolic. There was some concern regarding his hemoglobin. Hemoglobin is 10.5. This is appropriate for tomorrow surgery. at bedside. Patient states he feels well and is ready to go home. No indication for further work-up at this time. I did speak to Dr. Becerra. Dr. Becerar advised checking his hemoglobin reassessing his blood pressure and discharging as appropriate. Patient will have surgery in the morning. Portions of this note were created with voice recognition technology. There may be grammatical, spelling, punctuation or sound alike errors 08/08/22 14:[address] Ignacio Will see patient in: office Counseled pt/family regarding: lab results - Departure Departure Disposition: Home Clinical Impression: Medical screening for hypotension Condition: Stable Critical Care Time: No Referrals: CAROLYN BECERRA MD [Primary Care Provider] - Follow up/PCP as directed Additional Instructions: Discharge/Care Plan MARSHALL HOGAN was seen on 08/08/22 in the Emergency Room. The patient was counseled regarding Diagnosis,Lab results, Imaging studies, need for follow up and when to return to the Emergency Room. Prescriptions given: Discharge Note I have spoken with the patient and/or caregivers. I have explained the patient's condition, diagnosis and treatment plan based on the information available to me at this time. I have answered the patient's and/or caregiver's questions and addressed any concerns. The patient and/or caregivers have as good understanding of the patient's diagnosis, condition and treatment plan as can be expected at this point. The vital signs have been stable. The patient's condition is stable and appropriate for discharge from the emergency department. The patient will pursue further outpatient evaluation with the primary care physician or other designated or consulting physician as outlined in the discha e instructions. The patient and/or caregivers are agreeable to this plan of care and follow-up instructions have been explained in detail. The patient and/or caregivers have received these instruction. The patient/and or caregivers are aware that any significant change in condition or worsening of symptoms should prompt an immediate return to this or the closest emergency department or call 911.
[2022-08-08 12:56] LABS: Absolute Neutrophil Ct (ANC) 3.27 x10^3/uL (1.4-6.9); Basophil (Absolute #) 0.04 x10^3/uL (0-0.4); Eosinophil % 1.5 % (0.00-5.0); Eosinophil (Absolute #) 0.09 x10^3/uL (0-0.5); Hematocrit 34.7 % (42-50); Hemoglobin 10.5 g/dL (12.5-18.0); Lymphocyte (Absolute #) 1.82 x10^3/uL (1.0-4.6); Lymphocytes % 31.3 % (24.0-44.0); Mean Cell Volume 91.3 fL (78-100); Mean Corpuscular Hemoglobin 27.6 pg (26-32); Mean Corpuscular Hgb Concent. 30.3 g/dL (32-36); Mean Platelet Volume 9.3 fL (7.5-11.0); Monocyte (Absolute #) 0.59 x10^3/uL (0.0-1.3); Monocytes % 10.1 % (0.0-12.0); Neutrophil % 56.2 % (36.0-66.0); Platelet Count 156 x10^3/uL (150-450); Red Cell Distribution Width 18.5 % (11.5-14.0); White Blood Count 5.8 x10^3/uL (4.0-10.5)
[2022-08-08 13:11] LABS: ALBUMIN 4.2 g/dL (3.5-5.0); ANION GAP 14.7 MEQ/L (5-15); BILIRUBIN,TOTAL 1.1 mg/dL (0.2-1.3); Calcium 9.5 mg/dL (8.4-10.2); Creatinine 1 1.35 mg/dL (0.66-1.25); EST GLOMERULAR FILTRATION RATE 55.7 ML/MIN; Potassium 4.8 mmol/L (3.5-5.1); Total Protein 8.1 g/dL (6.3-8.2)
[2022-08-08 14:14] VITALS: BP 127/80; PULSE 85
[2022-08-08 14:20] VITALS: O2SAT 97
== END 2022-08-08 14:37 | disposition home or self-care (01) ==
LOC: ED 12:16
DX: Z03.89 Encounter for observation for other suspected diseases and conditions ruled out (principal); I95.9 Hypotension, unspecified; E78.5 Hyperlipidemia, unspecified; I10 Essential (primary) hypertension; E11.42 Type 2 diabetes mellitus with diabetic polyneuropathy; Z79.84 Long term (current) use of oral hypoglycemic drugs; Z79.891 Long term (current) use of opiate analgesic; Z79.899 Other long term (current) drug therapy
CPT/HCPCS: 36415; 80053; 85025; 99282

== ENCOUNTER 2022-08-09 05:52 | Day surgery (SDC) | payer MEDICARE ==
[2022-08-09] MEDS ORDERED: Marcaine Mpf 0.5% Vial 30 Ml IJ ONE ×2 (05:53)
[2022-08-09] MEDS ORDERED: Lactated Ringers 1,000 ML IV SCH (06:30)
[2022-08-09] MEDS ORDERED: CEFAZOLIN 2 GM-D5W BAG** 2 GM/50 ML ML IV SCH (06:30)
[2022-08-09] MEDS ORDERED: XYLOCAINE 1% HCL 20 ML MDV ONE ×3 (06:43→09:42)
[2022-08-09] MEDS ORDERED: Versed 2 MG/2 ML Injection ONE (09:09)
[2022-08-09] MEDS ORDERED: DIPRIVAN 200 MG/20 ML IV ONE ×2 (09:09→09:31)
[2022-08-09] MEDS ORDERED: SUBLIMAZE 100 MCG/2 ML ONE (09:09)
[2022-08-09] MEDS ORDERED: MAGNESIUM SULFATE IV ONE (09:30)
[2022-08-09] MEDS ORDERED: SODIUM CHLORIDE 0.9% IV ONE (09:30)
[2022-08-09] MEDS ORDERED: TRANDATE 100 MG/20 ML MDV FOR DRIP IV ONE (10:36)
[2022-08-09] MEDS ORDERED: APRESOLINE 20 MG/ML INJ ONE (11:22)
[2022-08-09] MEDS ORDERED: ENALAPRILAT 2.5 MG INJECTION IV ONE (12:11)
[2022-08-09 12:56] VITALS: O2SAT 100
[2022-08-09 13:16] VITALS: BP 170/90; PULSE 79
--- NOTE | 2022-08-12 14:11 | OP ---
SURGERY DATE: 08/09/2022 SURGERY TIME: 919 PREOPERATIVE DIAGNOSIS: 1. CHARCOT OSTEOARTHROPATHY. 2. FOURTH DIGIT DIABETIC FOOT ULCER. 3. METHICILLIN-RESISTANT STAPHYLOCOCCUS AUREUS INFECTION. POSTOPERATIVE DIAGNOSIS: 1. CHARCOT OSTEOARTHROPATHY. 2. FOURTH DIGIT DIABETIC FOOT ULCER. 3. METHICILLIN-RESISTANT STAPHYLOCOCCUS AUREUS INFECTION. PROCEDURE: 1. OPEN AMPUTATION FOURTH DIGIT RIGHT FOOT. SURGEON: Marvin Garibay D.P.M. MEDICAL TRANSLATOR: None. ANESTHESIA: MAC with a postoperative local block. HEMOSTASIS: A pressure dressing. ESTIMATED BLOOD LOSS: Less than 3 cc. MATERIALS: 3-0 Nylon, ' Iodoform packing. INJECTABLES: 10 cc of a 1:1 mixture of 1% Lidocaine plain and 0.5% Bupivicaine plain injected in a metatarsal block type fashion. INDICATIONS FOR PROCEDURE: Alfredo is a very pleasant 67 y/o male who is well known to our service for a recent Charcot reconstruction. Patient has been reaching the end of his nonweight-bearing period and casting for the Charcot reconstruction which up to this point has been uneventful. Patient does have seizure disorder and as a result of multiple seizures that he has had, has resulted in flaring of his extensor tendons during the seizure disorder and rubbing up against the cast. Evaluation was made in regards to the placement of the cast and it was deemed to be adequate based on standard of care. However, patient flexes toes extraordinarily high resulting in ulceration at the dorsal aspect of the 4th digit. This has been attempted to be to be taken care of conservatively for approximately 2 weeks now. On initial presentation, cultures were obtained demonstrating multiple bacterial growth, pseudomonas, Methicillin-resistant staphylococcus aureus, and some other gram negative organisms. Patient was placed on antibiotics. However, there looked to be worsening of the 4th digit. Patient was advised of options of proceeding with conservative care. However, with the worsening situation and the recent rim salvage attempt consisting of Charcot reconstruction, both myself and the patient as well as his opted to proceed with amputation to prevent worsening of the infection and having to revise any of the work that we did to the Charcot foot. All the risks and complications were discussed with the patient and his which were understood. Plenty of time was allowed for questions to be asked which were asked to the patient's apparent satisfaction. No guarantees were provided as to the outcome as this is an infection in a diabetic and neuropathic patient with a seizure disorder on top of that. It is with that, we decided to proceed. DESCRIPTION OF PROCEDURE: The patient was brought into the OR. Placed on the OR table in the supine position at this time. The right foot was prepped and draped in the typical sterile fashion, lowered onto the surgical field. At this time, attention was directed to the port where a dorsal Whack-it incision was made at the surrounding toe where ulceration was present. Disarticulation was performed inspecting the wound for any residual indications of infection. A pulse vac was utilized to flush out the site. Skin edges were incised demonstrating healthy bleeding edges with no residual in the carotid or clinically infected tissue. Partial wound closure was performed utilizing 3-0 Nylon. The central aspect of the incision was packed with 1/4" Iodoform packing soaked in Iodine. The wound was left open in an attempt to allow for Methicillin-resistant staphylococcus aureus and pseudomonal infection drainage. At this time, a dressing consisting of Betadine, Adaptic, 4 X 4, Kerlex, and Rafat was applied to the right lower extremity. Patient was then returned to the PACU with vital signs stable and vascular status intact. The patient handled the anesthesia as well as the procedure without significant complication. Postoperative orders as indicated in the patient's discharge chart. This is planned to be a staged procedure with a delayed primary closure at a later date and this is a separate issue from initial operation.
== END 2022-08-09 13:20 | disposition home or self-care (01) ==
LOC: SDC 05:52
PROVIDERS: ATTEND Podiatrist Foot & Ankle Surgery
DX: M14.671 Charcot's joint, right ankle and foot (principal); E11.621 Type 2 diabetes mellitus with foot ulcer; L97.519 Non-pressure chronic ulcer of other part of right foot with unspecified severity; A49.02 Methicillin resistant Staphylococcus aureus infection, unspecified site
CPT/HCPCS: 28820; 36415; 82947; 83735; 87070; 87075; 93005; J0360; J0690; J2250; J2704; J3010

== ENCOUNTER 2022-10-15 05:31 | Day surgery (SDC) | payer MEDICARE ==
[2022-10-15] MEDS ORDERED: Marcaine Mpf 0.5% Vial 30 Ml IJ ONE (05:32)
[2022-10-15] MEDS ORDERED: CEFAZOLIN 2 GM-D5W BAG** 2 GM/50 ML ML IV SCH (06:00)
[2022-10-15] MEDS ORDERED: Lactated Ringers 1,000 ML IV SCH (06:00)
[2022-10-15] MEDS ORDERED: Xylocaine 1% Vial 30 ML PF IJ ONE (06:06)
[2022-10-15 07:40] VITALS: O2SAT 99
[2022-10-15 07:46] VITALS: BP 154/84; PULSE 68
--- NOTE | 2022-10-15 09:09 | XRAY ---
Indication: Right foot hardware exchange. Intraoperative fluoroscopy provided for 53 seconds. 7 digital spot images submitted for interpretation exchange of 1st tarsometatarsal talar screw. Correlate with intraoperative findings/report. Incidental fractured 4th tarsometatarsal calcaneal screw.
--- NOTE | 2022-10-15 12:12 | XRAY ---
53 seconds of fluoroscopy was used in surgery for a right foot hardware exchange.
--- NOTE | 2022-10-15 13:16 | OP ---
SURGERY DATE: 10/15/2022 0653 PREOPERATIVE DIAGNOSES: 1) Painful orthopedic hardware in situ. 2) Charcot neuroarthropathy right foot. POSTOPERATIVE DIAGNOSES: 1) Painful orthopedic hardware in situ. 2) Charcot neuroarthropathy right foot. PROCEDURE: Removal of hardware with hardware exchange. SURGEON: Marvin Garibay DPM. PROGRAMMER: None. ANESTHESIA: Local. See injectables for details. HEMOSTASIS: Pressure dressing. ESTIMATED BLOOD LOSS: Less than 5 cc. MATERIALS: [place] 145 mm Beaming partially threaded screw. 2-0 Vicryl and 3-0 Nylon. INJECTABLES: 30 cc of a 1:1 mixture of 1% lidocaine plain and 0.5% bupivacaine plain injected in ankle block-type fashion. INDICATION FOR PROCEDURE: Alfredo is a very pleasant 67-year-old male who is well known to my service. Back in June of this year, he did have surgical intervention for a Charcot breakdown of his right foot. The patient has been progressing without complication and has been weightbearing in a Pro-Walker. However on follow up unbeknownst to the patient, one of the screws is backing out at the first metatarsophalangeal joint this is the medial column beaming. The patient was instructed that at this point removing the hardware and replacing it with longer hardware is in his best interest as the bone is still healing and would not significantly change his postoperative course up until now. The patient understands that there are no guarantees to the hardware being replaced as a final fix. Charcot has a high risk of hardware failure. However up until this point he has been weightbearing without complication and recurrence of his issue. So far the lateral column hardware has broken. However the grafting and the union of the lateral column have managed to stay in place as well as the subtalar joint. The only issue at this point that we are addressing with this surgical intervention is the hardware going through the medial column. The patient understands all risks, complications and benefits of surgical intervention at this time including but not limited to infection, hematoma, seroma, possibility of failed union, delayed union and possible need for surgical intervention at a later date. Sometimes there are hardware complications as there is in this case which need to be addressed in order to prevent any other complications. The patient understands this and wishes to proceed with surgical intervention at this time. DESCRIPTION OF PROCEDURE AND FINDINGS: The patient was brought into the operating room and placed on the operating room table in the supine position. At this time a local block was performed utilizing 30 cc of a 1:1 mixture of 1% lidocaine plain and 0.5% bupivacaine plain injected in ankle block-type fashion. At this time the right lower extremity was prepped and draped in the typical sterile fashion and the extremity was lowered onto the surgical field. At this time a 1.2 K-wire was introduced into the cannulated screw under fluoroscopic guidance. Following this, a skin incision was made utilizing a 15 blade. The 15 blade was then followed by a curved mini-hemostat utilized for gaining compression to the screw head. A screwdriver was introduced on a T-handle and removed past the skin and then removed on towel. Following this, the foot was stressed. It was noted there was some degree of motion at the talonavicular joint at this time. The remaining joints did seem to be stable. Following this, a new screw was introduced measuring to be 145 mm in length and burying the screw into the posterior aspect of the talus. The K-wire was removed. The skin was cleansed with normal sterile saline and a buried stitch was performed utilizing 2-0 Vicryl and a horizontal mattress-type suture was utilized at the incision site to justin the skin edges. Following this, sterile saline was utilized to cleanse the leg. A dressing consisting of Betadine, Adaptic, 4x4, Kerlix and ANASTASIYA was then applied. The patient was given instructions for postoperative weightbearing to his heel and his Pro-Walker. The patient then was returned to the preoperative area with vital signs stable and vascular status intact. The patient handled the anesthesia as well as the procedure without significant complications. Postoperative orders as indicated in the discharge chart.
== END 2022-10-15 07:40 | disposition home or self-care (01) ==
LOC: SDC 05:31
PROVIDERS: ATTEND Podiatrist Foot & Ankle Surgery
DX: T84.84XA Pain due to internal orthopedic prosthetic devices, implants and grafts, initial encounter (principal); M14.671 Charcot's joint, right ankle and foot
CPT/HCPCS: 20680; 28899; 73630; 76000; 82947; C1713; J0690; J2001